=== PATIENT | male | born 1950 | race Caucasian/White ===

== ENCOUNTER 2016-10-26 15:46 | Inpatient (IN) | payer BC ==
[~2016-10-26] VITALS: Ht 180.3 cm; Wt 95.6 kg
[~2016-10-26 15:46] MED LIST: ASPI-611 PO; ASPI-728 PO; ATOR20TA18 PO; FENO160T9 PO; IBUP200C42 PO; IRON18TA PO; MELO-32 PO; MULT-806 PO; OXYC10TA PO; OXYC5TAB PO
--- OUTSIDE RECORDS SUMMARY | 2016-10-26 15:58 | XMS REPORT | Continuity of Care Document ---
Author Author [facility] Organization [facility] Address Unknown Phone Unavailable Care Team Providers Care Logging Assistant Name Role Phone Primary Care Physician Unavailable Source Comments Some departments are not documenting in the electronic medical record. If you do not see the information that you expected, contact Release of Information in the Health Information Management department at [phone] for further assistance in locating additional records.[facility] Active Allergies and Adverse Reactions Not on File Current Medications Not on file Active Problems Not on file Most Recent Encounters Date Type Specialty Providers Description 10/11/2016 Telephone Oncology Alee Brown MD Navigation Assessment 10/04/2016 Hospital Radiology Encounter 10/04/2016 Ancillary Radiology Outpatient, Radiologist Diagnosis unknown Orders (Primary Dx) 10/03/2016 Hospital Radiology Encounter 09/27/2016 Hospital Radiology Encounter 09/27/2016 Hospital Radiology Encounter 09/27/2016 Hospital Radiology Encounter 09/27/2016 Hospital Radiology Encounter Social History Tobacco Use Types Packs/Day Years Used Date Never Assessed Plan of Care Health Maintenance Due Date Last Done Comments Hepatitis C Screening 1950 Physical (Comprehensive) 12/31/1958 Exam Pertussis Vaccine 12/31/1962 Tetanus Vaccine 12/31/1968 Colorectal Cancer 12/31/2001 Screening Shingles Vaccine 2012 Influenza Vaccine 04/19/2017 Results from Last 3 Months * CT CHEST EXTERNAL IMAGING (10/04/2016) Only the most recent of 2 results within the time period is included. Narrative This order has been auto finalized and does not contain a result. * NM PET/CT EXTERNAL IMAGING (10/03/2016) Narrative This order has been auto finalized and does not contain a result. * CT HEAD EXTERNAL IMAGING (09/27/2016 12:45 AM) Narrative This order has been auto finalized and does not contain a result. * MRI HEAD EXTERNAL IMAGING (09/27/2016 12:15 AM) Narrative This order has been auto finalized and does not contain a result. * GENERAL RAD CHEST EXTERNAL IMAGING (09/27/2016) Narrative This order has been auto finalized and does not contain a result.
--- OUTSIDE RECORDS SUMMARY | 2016-10-26 15:59 | XMS REPORT | Continuity of Care Document ---
Author Author [facility] Organization 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 10/13/2016 Jailene Hernández MD P F C79.31 SECONDARY MALIGNANT NEOPLASM OF BRAIN 10/13/2016 Jailene Hernández MD P F E78.5 HYPERLIPIDEMIA, UNSPECIFIED 10/13/2016 Jailene Hernández MD P F E87.2 ACIDOSIS 10/13/2016 Jailene Hernández MD P F F17.200 NICOTINE DEPENDENCE, UNSPECIFIED, UNCOMPLICATED 10/13/2016 Jailene Hernández MD P F I10 ESSENTIAL (PRIMARY) HYPERTENSION 10/13/2016 Jailene Hernández MD P F I95.9 HYPOTENSION, UNSPECIFIED 10/13/2016 Jailene Hernández MD P F J43.9 EMPHYSEMA, UNSPECIFIED 10/13/2016 Jailene Hernández MD P F J69.0 PNEUMONITIS DUE TO INHALATION OF FOOD AND VOMIT 10/13/2016 Edgar ALEJANDRO Jailene P F J96.90 RESPIRATORY FAILURE, UNSP, UNSP W HYPOXIA OR HYPER 10/13/2016 Jailene Hernández MD P F R32 UNSPECIFIED URINARY INCONTINENCE 10/13/2016 Jailene Hernández MD P F R56.9 UNSPECIFIED CONVULSIONS 10/13/2016 Edgar ALEJANDRO Jailene P F R59.0 LOCALIZED ENLARGED LYMPH NODES 10/13/2016 Edgar ALEJANDRO Jailene P F Z96.649 PRESENCE OF UNSPECIFIED ARTIFICIAL HIP JOINT Procedures Code Description Performed By Performed On [id number] RESPIRATORY VENTILATION, LESS THAN 24 CONSECUTIVE Tasha Barajas MD 10/13/2016 Results Test Result Range CBC W/DIFF - 10/13/16 16:04 COMMENT REVIEWED GRANULOCYTE # 16.1 k/cumm 2.0-9.0 GRANULOCYTE % 94 % 50-75 LYMPHOCYTE # 0.7 k/cumm 1.0-4.0 LYMPHOCYTE % 4 % 20-30 MEAN CELL HGB 31.1 pg 27.0-33.0 MEAN CELL HGB CONCENTRATION 32.9 g/dL 32.0-37.0 MEAN CELL VOLUME 94.4 fl 80.0-100.0 MONOCYTE # 0.4 k/cumm 0.1-1.0 MONOCYTE % 2 % 4-6 RED BLOOD CELL 5.92 m/cumm 4.00-6.00 RED CELL DISTRIBUTION WIDTH 14.6 % 11.0- 15.6 TOXIC GRANULATION NOTED WHITE BLOOD CELL 17.2 k/cumm 5.0-10.0 HEMOGLOBIN 18.4 gm/dL 14.0-18.0 HEMATOCRIT 55.9 % 40.0-54.0 PLATELET COUNT 170 k/cumm 150-400 LACTIC ACID - 10/13/16 16:04 LACTIC ACID 13.5 mmol/L 0.5-2.0 HEPATIC FUNCTION PANEL - 10/13/16 16:06 BILI UNCONJUGATED 0.8 mg/dL 0.0-0.7 AST/SGOT 49 Units/L 10-37 ALT/SGPT 46 Units/L < 66 TOTAL PROTEIN 6.5 gm/dL 6.4-8.2 ALBUMIN 3.0 gm/dL 3.4-5.0 BILI TOTAL 0.9 mg/dL 0.0-1.0 ALKALINE PHOSPHATASE TOTAL 56 IU/L 45- 117 BILI CONJUGATED 0.1 mg/dL 0.0-0.3 MAGNESIUM - 10/13/16 16:06 MAGNESIUM 2.1 mg/dL 1.8-2.4 CREATINE KINASE (CK/CPK) - 10/13/16 16:06 CREATINE KINASE (CK/CPK) 138 Units/L < 309 D-DIMER QUANT - 10/13/16 16:09 D-DIMER QUANT 732 ng/mL 0-229 ARTERIAL BLOOD GAS - 10/13/16 16:20 ABG BASE EXCESS -6.5 meq/L -3.0-3.0 ABG DEVICE VENT ABG FIO2 100 % ABG BICARBONATE 22.5 meq/L 23.0-28.0 ABG PCO2 59 mm Hg 34-45 ABG PEEP 5 CM ABG PH 7.20 7.35-7.45 ABG PO2 362 mm Hg 75-100 ABG VENT RATE 16 ABG O2 SATURATION 100 % 93-100 ABG TIDAL VOLUME 500 CC CHEM/HEM PROFILE-BEDSIDE - 10/13/16 16:46 POTASSIUM 4.4 mmol/L 3.5-5.3 METHOD Bedside ANION GAP 12 mmol/L 10-20 METHOD Bedside GLUCOSE 139 mg/dL 70-99 BLOOD UREA NITROGEN 36 mg/dL 7-20 CREATININE 0.9 mg/dL 0.7-1.3 HEMOGLOBIN 19.0 gm/dL 14.0-18.0 HEMATOCRIT 56.0 % 40.0-54.0 SODIUM 139 mmol/L 135-148 CHLORIDE 102 mmol/L 98-110 CARBON DIOXIDE 29 mmol/L 21-32 CALCIUM IONIZED 4.8 mg/dL 4.5-5.3 BLOOD CULTURE - 10/13/16 20:26 Microbiology LACTIC ACID - 10/13/16 20:27 LACTIC ACID 1.9 mmol/L 0.5-2.0 ARTERIAL BLOOD GAS - 10/13/16 20:27 ABG BASE EXCESS -3.2 meq/L -3.0-3.0 ABG BICARBONATE 20.5 meq/L 23.0-28.0 ABG PCO2 34 mm Hg 34-45 ABG PH 7.40 7.35-7.45 ABG PO2 128 mm Hg 75-100 ABG O2 SATURATION 98 % 93-100 TROPONIN I - 10/13/16 20:27 TROPONIN I 0.04 ng/mL < 0.07 UR DRUGS OF ABUSE SCREEN - 10/13/16 20:59 UR AMPHETAMINES SCREEN NEG (<1000 ng/mL) NEGATIVE UR BARBITURATE SCREEN NEG (< 200 ng/mL) NEGATIVE DRUGS OF ABUSE SCREEN COMMENT UR OPIATES SCREEN NEG (< 300 ng/mL) NEGATIVE UR PHENCYCLIDINE (PCP) SCREEN NEG (< 25 ng/mL) NEGATIVE UR CANNABINOIDS (THC) SCREEN NEG (< 50 ng/mL) NEGATIVE UR COCAINE METABOLITE SCREEN NEG (< 300 ng/mL) NEGATIVE UR METHADONE SCREEN NEG (< 300 ng/mL) NEGATIVE UR BENZODIAZEPINE SCREEN NEG (< 200 ng/mL) NEGATIVE BLOOD CULTURE - 10/13/16 20:59 Microbiology LACTIC ACID - 10/14/16 01:15 LACTIC ACID 2.6 mmol/L 0.5-2.0 GLUCOSE (POC) - 10/14/16 04:33 GLUCOSE (POC) 145 mg/dL 70-99 CBC W/MANUAL DIFF - 10/14/16 04:34 MEAN CELL HGB 30.8 pg 27.0-33.0 MEAN CELL HGB CONCENTRATION 33.1 g/dL 32.0-37.0 MEAN CELL VOLUME 93.1 fl 80.0-100.0 RED BLOOD CELL 5.06 m/cumm 4.00-6.00 RED CELL DISTRIBUTION WIDTH 14.7 % 11.0- 15.6 WHITE BLOOD CELL 18.9 k/cumm 5.0-10.0 HEMOGLOBIN 15.6 gm/dL 14.0-18.0 HEMATOCRIT 47.1 % 40.0-54.0 PLATELET COUNT 145 k/cumm 150-400 MANUAL DIFF(O) - 10/14/16 04:34 BAND % 1 % 0-10 GRANULOCYTE # 18.5 k/cumm 2.0-9.0 LYMPHOCYTE # 0.4 k/cumm 1.0-4.0 LYMPHOCYTE % 2 % 20-30 DIFFERENTIAL MANUAL SEGMENTED NEUTROPHIL % 97 % 50-70 SPHEROCYTES NOTED TOXIC GRANULATION NOTED RENAL FUNCTION PANEL - 10/14/16 04:34 POTASSIUM 4.1 mmol/L 3.5-5.3 EST GFR (MDRD) > 60 mL/min > 59 ANION GAP 8 mmol/L 5-15 EST CrCl (CG) > 60 mL/min > 59 GLUCOSE 150 mg/dL 70-99 CALCIUM 7.5 mg/dL 8.5-10.1 BLOOD UREA NITROGEN 23 mg/dL 7-20 CREATININE 0.8 mg/dL 0.7-1.3 SODIUM 139 mmol/L 135-148 CHLORIDE 107 mmol/L 98-110 CARBON DIOXIDE 24 mmol/L 21-32 ALBUMIN 2.3 gm/dL 3.4-5.0 PHOSPHORUS 3.2 mg/dL 2.5-4.9 MAGNESIUM - 10/14/16 04:34 MAGNESIUM 2.0 mg/dL 1.8-2.4 METABOLIC PANEL, BASIC - 10/15/16 04:23 POTASSIUM 3.8 mmol/L 3.5-5.3 EST GFR (MDRD) > 60 mL/min > 59 ANION GAP 6 mmol/L 5-15 EST CrCl (CG) > 60 mL/min > 59 GLUCOSE 104 mg/dL 70-99 CALCIUM 7.4 mg/dL 8.5-10.1 BLOOD UREA NITROGEN 15 mg/dL 7-20 CREATININE 0.8 mg/dL 0.7-1.3 SODIUM 138 mmol/L 135-148 CHLORIDE 105 mmol/L 98-110 CARBON DIOXIDE 27 mmol/L 21-32 CALCIUM IONIZED - 10/15/16 10:27 CALCIUM IONIZED 4.6 mg/dL 4.5-5.3 LACTIC ACID - 10/15/16 10:27 LACTIC ACID 2.4 mmol/L 0.5-2.0 CBC W/DIFF - 10/15/16 10:27 COMMENT REVIEWED GRANULOCYTE # 12.4 k/cumm 2.0-9.0 GRANULOCYTE % 95 % 50-75 LYMPHOCYTE # 0.4 k/cumm 1.0-4.0 LYMPHOCYTE % 3 % 20-30 MEAN CELL HGB 30.8 pg 27.0-33.0 MEAN CELL HGB CONCENTRATION 33.2 g/dL 32.0-37.0 MEAN CELL VOLUME 92.7 fl 80.0-100.0 MONOCYTE # 0.2 k/cumm 0.1-1.0 MONOCYTE % 2 % 4-6 RED BLOOD CELL 5.59 m/cumm 4.00-6.00 RED CELL DISTRIBUTION WIDTH 14.4 % 11.0- 15.6 TOXIC GRANULATION NOTED WHITE BLOOD CELL 13.1 k/cumm 5.0-10.0 HEMOGLOBIN 17.2 gm/dL 14.0-18.0 HEMATOCRIT 51.8 % 40.0-54.0 PLATELET COUNT 112 k/cumm 150-400 VANCOMYCIN TROUGH - 10/15/16 10:27 VANCOMYCIN TROUGH 14.4 mcg/mL 5.0-20.0 PROCALCITONIN - 10/15/16 10:27 PROCALCITONIN < 0.05 ng/mL < 0.10 LACTIC ACID - 10/16/16 06:49 LACTIC ACID 1.9 mmol/L 0.5-2.0 CBC W/DIFF - 10/16/16 06:49 COMMENT REVIEWED GRANULOCYTE # 11.0 k/cumm 2.0-9.0 GRANULOCYTE % 94 % 50-75 LYMPHOCYTE # 0.3 k/cumm 1.0-4.0 LYMPHOCYTE % 3 % 20-30 MEAN CELL HGB 31.0 pg 27.0-33.0 MEAN CELL HGB CONCENTRATION 33.8 g/dL 32.0-37.0 MEAN CELL VOLUME 91.8 fl 80.0-100.0 MONOCYTE # 0.2 k/cumm 0.1-1.0 MONOCYTE % 2 % 4-6 RED BLOOD CELL 5.23 m/cumm 4.00-6.00 RED CELL DISTRIBUTION WIDTH 14.2 % 11.0- 15.6 TOXIC GRANULATION NOTED WHITE BLOOD CELL 11.6 k/cumm 5.0-10.0 HEMOGLOBIN 16.2 gm/dL 14.0-18.0 HEMATOCRIT 48.0 % 40.0-54.0 PLATELET COUNT 103 k/cumm 150-400 Encounters ACCT No. Visit Date/Time Discharge Status Pt. Type Provider Facility Loc./Unit Complaint [id number] 10/13/2016 16:53:00 2016 13:05:00 DIS Inpatient Edgar ALEJANDRO, Jailene Lundy [facility] WJonasPatric
[2016-10-26 16:11] VITALS: Ht 180.3 cm; Wt 95.6 kg
[2016-10-26 16:12] VITALS: BP 99/63; PULSE 80; RESP 16; TEMP 96.4; O2SAT 99
[2016-10-26 16:23] VITALS: PULSE 80; RESP 16
[2016-10-26] MEDS ORDERED: DEXA4TAB PO ×2 (16:41)
[2016-10-26] MEDS ORDERED: RANI150T7 PO (16:41)
[2016-10-26] MEDS ORDERED: PROC10TA PO (16:41)
[2016-10-26] MEDS ORDERED: NYST5ORA7 PO (16:41)
--- NOTE | 2016-10-26 16:50 | NUR ---
ADMISSION PT ADMITTED TO ROOM 148 VIA WHEELCHAIR DIRECT ADMIT AT 1600. PT IS A&OX3, UP WITH ONE ASSIST, MODERATE FALL. PT USES WALKER. FAMILY IS AT BEDSIDE. PT DENIES PAIN, N/V AND SOA. PT IS ON ROOM AIR. PT AND FAMILY ORIENTED TO BED AND HOSPITAL ROOM. AWAITING FURTHER ORDERS.
--- NOTE | 2016-10-26 16:54 | HPPDOC ---
VENKAT VERA V [facility] 10/26/16 1637: HPI - Adult Date DATE: 10/26/16 TIME: 16:30 General Chief Complaint: small cell lung cancer, elevated d-dimer, abnormal labs History of Present Illness Patient is a pleasant 66-year-old male who was diagnosed with small cell lung cancer on 09/27/16. Unfortunately, at that time he was found to have metastatic disease to the brain, lymph nodes. He has been undergoing chemotherapy and radiation under the care of Dr Read. He suffered a seizure and was on the ventilator for 2 days at [place] at the end of September. He was discharged home on October 17, however, since that time has been weak, fatigued with decreased appetite. At that time he was also found to have some bleeding in his stools. His bowels have not moved for 2 weeks. However, his intake has been minimal. Today he had outpatient laboratory studies and was found to have a continued decline in platelet count down to 60. He was also found to have an elevated d- dimer of 3120. Reviewed outpatient laboratory studies today. The [facility] count 5.0, hemoglobin 17.1 , hematocrit 49.7, platelet count 60, neutrophils 94%. Sodium is 135, potassium 3.6, BUN 26, creatinine 0.9. Total bilirubin continues to elevate to 3.0 now. Given these abnormal laboratory findings oncology team contacted the hospitalist services and requested medical admission for further evaluation and treatment. Patient is seen on arrival to [facility]. He is alert and oriented and pleasant during examination and his family is at the bedside. Past Medical History Past Medical History Non- small cell Lung Cancer with mets to brain and Lymph nodes Hyperlipidemia Seizures Chronic tobacco dependence History of alcohol use Surgical History Patient's Surgical History: Carpal tunnel release. Tonsillectomy Right thumb surgery. Colonoscopy-2002 Lumbar spine surgery-2013 Left total hip repair-November 2013 Current Medications Home Meds Reported Medications Furosemide (Furosemide) 20 Mg Tablet, 1 TAB PO PRN, TAB 10/26/16 Potassium Chloride (Potassium Chloride) 10 Meq Capsule.er, 10 MEQ PO PRN, CAP Take 1 capsule, by mouth, two times a day with meals 10/26/16 Levetiracetam (Keppra) 500 Mg Tablet, 1.5 TAB PO BID, #180 TAB 3 Refills 10/26/16 Prochlorperazine Maleate (Prochlorperazine Maleate) 10 Mg Tablet, 1 TAB PO Q6H, #30 TAB 3 Refills 10/26/16 Ranitidine HCl (Ranitidine HCl) 150 Mg Tablet, 150 MG PO DAILY, TAB 10/26/16 Dexamethasone (Dexamethasone) 4 Mg Tablet, 1 TAB PO HS, TAB 10/26/16 Dexamethasone (Dexamethasone) 4 Mg Tablet, 2 TAB PO BID.., TAB 10/26/16 Nystatin (Nystatin) 100,000 Unit/1 Ml Oral.susp, 5 ML PO QID, ML 5 ml swish and swallow four times a day. 10/26/16 Atorvastatin Calcium (Lipitor) 20 Mg Tablet, 40 MG PO DAILY, TAB 11/12/13 Discontinued Reported Medications Aspirin (Aspirin) 81 Mg Tablet, 81 MG PO DAILY, TAB 11/16/13 Fenofibrate,Micronized (Fenofibrate) 160 Mg Tablet, 160 MG PO DAILY, TAB 11/16/13 Meloxicam (Mobic) 15 Mg Tablet, 15 MG PO DAILY, TAB 11/12/13 Ibuprofen (Ibuprofen) 200 Mg Capsule, 200 MG PO PRN, CAP 11/12/13 Multivitamins (Multivitamin) 1 Tab Tablet, 1 TAB PO DAILY, TAB 11/12/13 Iron (Iron) 18 Mg Tablet, 18 MG PO DAILY, TAB 11/12/13 Discontinued Scripts Meloxicam (Mobic) 15 Mg Tablet, 15 MG PO DAILY, #30 TAB Prov:KRISTINA CHINCHILLA 11/18/13 Oxycodone Hcl (Oxycodone Hcl) 10 Mg Tab.sr.12h, 10 MG PO Q12H for PAIN, #28 TAB Prov:KRISTINA CHINCHILLA 11/18/13 Oxycodone Hcl (Oxycodone Hcl) 5 Mg Tablet, 5-15 MG PO Q3H Y for PAIN, #60 TAB TAKE 1-3 TABS Prov:KRISTINA CHINCHILLA 11/18/13 Aspirin EC (Aspirin Ec) 325 Mg Tablet.dr, 325 MG PO BID, #84 TAB Take one tablet by mouth twice a day for 6 weeks. Prov:KRISTINA CHINCHILLA 11/18/13 Allergies: Coded Allergies: No Known Allergies (Unverified , 11/12/13) Family History Family History: Father-stroke Mother-dementia Social History Smoking Status: Current every day smoker Alcohol Intake: former alcohol drinker Marital Status: Sexuality: female partner Housing: house Advance Directives: Yes DPOA for Healthcare Only (DARIN NASH), Yes Full Code Social History Comments PCP Dr Sousa Review of Systems Constitutional: REPORTS: appetite decrease, fatigue, weakness GI Upper Abdomen: hematemesis Lower Abdomen: blood in stool All Other Systems All Other Systems: Reviewed Physical Exam General General Nourishment: well nourished, well developed Vital Signs Vital Signs Date Time Temp Pulse Resp B/P Pulse Ox O2 Delivery O2 Flow Rate FiO2 10/26/16 16:23 80 16 10/26/16 16:12 96.4 99/63 99 Room Air Height (Feet): 5 Height (Inches): 11.00 ENMT Brief: FOUND: mucosa moist, normal dentition, NOT FOUND: pharnyx erythema Respiratory Brief: FOUND: clear all jarrell, equal bilaterally, NOT FOUND: wheezes Cardiovascular (brief) Cardiac Brief: FOUND: pedal edema, regular rate, regular rhythm, NOT FOUND: murmur Abdomen (brief) Abdominal Brief: FOUND: BS normo active x4, soft Integumentary (brief) Integumentary Brief: FOUND: dry, pink, warm Neurologic (brief) Neurological Brief: FOUND: cranial 2-12 intact (grossly ) Neurologic RN Documented GCS Eye Opening: Verbal: Motor: Total: Psychiatric (brief) FOUND: alert, attentive, normal affect, oriented Assessment & Plan Problems: (1) Non-small cell cancer of right lung Status: Acute (2) Metastasis Status: Acute (3) Elevated d-dimer Status: Acute (4) Thrombocytopenia Status: Acute Assessment & Plan: Present on admission, platelet count 60 (5) Elevated bilirubin Status: Acute (6) Hyperlipemia Status: Chronic (7) History of alcohol use Status: Chronic (8) Tobacco dependence Status: Chronic Plan/Intensity of Service Admit patient to outpatient observation under the care of Dr. Gallo for abnormal laboratory studies including thrombocytopenia, elevated bilirubin and elevated d-dimer. Patient does have a known history of that is static. Non- small cell lung cancer. Consultation will be placed to Dr. Ford for further oncology and hematologic evaluation and treatment. In light of recent reported GI bleeding, will obtain stool for occult blood. Will also obtain a KUB with upright x-ray In light of constipation as patient has not had a bowel movement for [address] an IV and give patient normal saline at 100 ML per hour for gentle hydration. Zofran as needed for nausea SCDs to bilateral lower extremity for DVT prophylaxis Once home medications have been reconciled well order appropriately. does want to bring home medications to use during hospitalization. Recheck CBC and BMP tomorrow morning to follow blood counts, renal function and electrolytes. Will discuss further orders and plan of care with Dr. Gallo. At time of discharge medical care will return to primary care provider, Dr. Sousa DVT Prophylaxis: SCD'S Code Status Hospital Course Summary Disclaimer The hospital course summary below is not to be considered part of the above Progress Note. Hospital Course Summary 10/26/16 Admit patient to outpatient observation under the care of Dr. Gallo for abnormal laboratory studies including thrombocytopenia, elevated bilirubin and elevated d-dimer. Patient does have a known history of that is static. Non- small cell lung cancer. Consultation will be placed to Dr. Ford for further oncology and hematologic evaluation and treatment. In light of recent reported GI bleeding, will obtain stool for occult blood. Will also obtain a KUB with upright x-ray In light of constipation as patient has not had a bowel movement for [address] an IV and give patient normal saline at 100 ML per hour for gentle hydration. Zofran as needed for nausea SCDs to bilateral lower extremity for DVT prophylaxis Once home medications have been reconciled well order appropriately. does want to bring home medications to use during hospitalization. Recheck CBC and BMP tomorrow morning to follow blood counts, renal function and electrolytes. Will discuss further orders and plan of care with Dr. Gallo. At time of discharge medical care will return to primary care provider, Dr. Merry GALLO,TOM Perez MD 10/26/162046: Past Medical History Current Medications Home Meds Reported Medications Furosemide (Furosemide) 20 Mg Tablet, 1 TAB PO PRN, TAB 10/26/16 Potassium Chloride (Potassium Chloride) 10 Meq Capsule.er, 10 MEQ PO PRN, CAP Take 1 capsule, by mouth, two times a day with meals 10/26/16 Levetiracetam (Keppra) 500 Mg Tablet, 1.5 TAB PO BID, #180 TAB 3 Refills 10/26/16 Prochlorperazine Maleate (Prochlorperazine Maleate) 10 Mg Tablet, 1 TAB PO Q6H, #30 TAB 3 Refills 10/26/16 Ranitidine HCl (Ranitidine HCl) 150 Mg Tablet, 150 MG PO DAILY, TAB 10/26/16 Dexamethasone (Dexamethasone) 4 Mg Tablet, 1 TAB PO HS, TAB 10/26/16 Dexamethasone (Dexamethasone) 4 Mg Tablet, 2 TAB PO BID.., TAB 10/26/16 Nystatin (Nystatin) 100,000 Unit/1 Ml Oral.susp, 5 ML PO QID, ML 5 ml swish and swallow four times a day. 10/26/16 Atorvastatin Calcium (Lipitor) 20 Mg Tablet, 40 MG PO DAILY, TAB 11/12/13 Discontinued Reported Medications Aspirin (Aspirin) 81 Mg Tablet, 81 MG PO DAILY, TAB 11/16/13 Fenofibrate,Micronized (Fenofibrate) 160 Mg Tablet, 160 MG PO DAILY, TAB 11/16/13 Meloxicam (Mobic) 15 Mg Tablet, 15 MG PO DAILY, TAB 11/12/13 Ibuprofen (Ibuprofen) 200 Mg Capsule, 200 MG PO PRN, CAP 11/12/13 Multivitamins (Multivitamin) 1 Tab Tablet, 1 TAB PO DAILY, TAB 11/12/13 Iron (Iron) 18 Mg Tablet, 18 MG PO DAILY, TAB 11/12/13 Discontinued Scripts Meloxicam (Mobic) 15 Mg Tablet, 15 MG PO DAILY, #30 TAB Prov:KRISTINA CHINCHILLA 11/18/13 Oxycodone Hcl (Oxycodone Hcl) 10 Mg Tab.sr.12h, 10 MG PO Q12H for PAIN, #28 TAB Prov:KRISTINA CHINCHILLA 11/18/13 Oxycodone Hcl (Oxycodone Hcl) 5 Mg Tablet, 5-15 MG PO Q3H Y for PAIN, #60 TAB TAKE 1-3 TABS Prov:KRISTINA CHINCHILLA 11/18/13 Aspirin EC (Aspirin Ec) 325 Mg Tablet.dr, 325 MG PO BID, #84 TAB Take one tablet by mouth twice a day for 6 weeks. Prov:KRISTINA CHINCHILLA 11/18/13 Allergies: Coded Allergies: No Known Allergies (Unverified , 11/12/13) Assessment & Plan Problems: (1) Non-small cell cancer of right lung Status: Acute (2) Metastasis Status: Acute Assessment & Plan: Metastatic disease to the brain-3 lesions recently reported ; XRT initiated/on tapering Decadron (3) Thrombocytopenia Status: Acute Assessment & Plan: Platelet count 60 in the office earlier today, 111 on 10/17 with subsequent decline (4) Elevated bilirubin Status: Acute Assessment & Plan: 3.0 on the date of admission; has increased progressively from 1.2 on 10/17 (5) Elevated d-dimer Status: Acute (6) Hematochezia Status: Acute Assessment & Plan: Minor, hemoglobin 17 this morning (7) Constipation Assessment & Plan: Last bowel movement 7-10 days or to admission (8) History of seizures Assessment & Plan: Due to brain metastases/vasogenic edema (9) Edema Assessment & Plan: Right greater than left lower extremity (10) Hyperlipemia Status: Chronic (11) Tobacco dependence Status: Chronic (12) History of alcohol use Status: Chronic Assessment I have independently evaluated and examined this patient. I reviewed the chart, the patient's history, and the [facility]'s documented findings as above. We discussed and formulated the assessment and plan as above with additions as below: Mr. Nash's son provide supplemental history. Patient reports that his had a small amount of blood a couple of times recently and describes some rectal pain in conjunction with constipation present for 7-10 days. He describes an urge to have a bowel movement and straining but no stool. Appetite is poor and his family reports that his been breathing heavily and having hiccups frequently. He denies discolored or dark urine. He is ambulating minimally per family report. Multiple laboratory abnormalities have been followed this week with dropping platelet count, increasing LDH and bilirubin, minor decrease in hemoglobin from 18 to 17. Patient is hospitalized for further management and evaluation. On examination the patient is slightly dull but is able to provide general historical information. Breath sounds are clear, abdomen benign, and there is + 1 pitting right lower extremity edema and trace left lower extremity edema. There is mild proximal weakness lower extremity greater on the left but distal power is strong as is upper extremity strength. Sensation is intact 4 extremities. In addition to a plans outlined above will obtain bilateral lower extremity venous Dopplers and further laboratory data requested by Dr. Ford including hit antibody, haptoglobin, and peripheral smear. DIC panel is being obtained although has effectively been screened with labs done prior to hospitalization demonstrating minimal increase INR, slightly low PTT of 21.4 seconds, and fibrinogen just below normal range at 172. KUB for evaluation of constipation demonstrates prior left hip arthroplasty, increased stool throughout the colon and probable fecal impaction by my review. Dulcolax suppositories to be initiated-may require enemas but with reported rectal bleeding and decreased platelet count I'm reluctant to initiate them at this time. Plan/Intensity of Service KUB reviewed by myself, discussed with Dr. Ford, current and past laboratory data reviewed. Bilateral lower extremity venous Doppler reviewed. Supplemental history provided by the patient's son and [id number]. VENKAT VERA APRN Oct 26, 2016 16:37 TOM GALLO MD Oct 26, 2016 20:47
[2016-10-26] MEDS ORDERED: ONDANSETRON 4mg/2ml INJECTION IV PRN (17:00)
[2016-10-26] MEDS ORDERED: LEVE500T9 PO (17:07)
[2016-10-26] MEDS: NORMAL SALINE 1,000 ML IV SCH (17:11)
[2016-10-26] MEDS ORDERED: BISACODYL 10 MG SUPPOSITORY RECTALLY PRN (18:15)
[2016-10-26] MEDS ORDERED: MILK OF MAGNESIA 30 ML SUSP PO PRN (18:15)
[2016-10-26] MEDS: PROCHLORPERAZINE 10 MG TABLET PO SCH (18:39)
[2016-10-26 18:45] LABS: HCT - HEMATOCRIT 44.9 % (41-53); HGB - HEMOGLOBIN 15.7 GM/DL (13.5-17.5); MEAN CORPUSCULAR HGB 31.6 UUG (26-34); MEAN CORPUSCULAR VOLUME 90.3 UM3 (80-100); MEAN PLATELET VOLUME 10.5 UM3 (9.4-12.4); RED BLOOD COUNT 4.97 M/MM3 (4.50-5.90); WBC - WHITE BLOOD COUNT 3.7 T/MM3 (4.5-11.0)
[2016-10-26] MEDS ORDERED: FURO20TA4 PO (18:46)
[2016-10-26] MEDS ORDERED: POTA10CA37 PO (18:46)
[2016-10-26 18:53] LABS: INR 1.16 (0.76-1.04); PROTHROMBIN TIME 12.6 SEC (9.31-12.49); PTT 26.6 SEC (24-36)
[2016-10-26 20:00] VITALS: RESP 18
[2016-10-26 20:18] VITALS: BP 100/68; PULSE 78; RESP 20; TEMP 96.8; O2SAT 95
[2016-10-26] MEDS ORDERED: ENOXAPARIN SQ SCH (20:45)
[2016-10-26] MEDS: LEVETIRACETAM 500 MG TABLET PO SCH (20:46)
[2016-10-26] MEDS: SENNA + DOCUSATE TAB PO SCH (20:46)
[2016-10-26] MEDS: NYSTATIN 500,000 units/5ml Susp UD PO SCH (20:46)
[2016-10-26] MEDS: DEXAMETHASONE 4 MG TABLET PO SCH (20:46)
[2016-10-26] MEDS: ATORVASTATIN 40 MG TABLET PO SCH (20:47)
[2016-10-26] MEDS: RANITIDINE 150 MG TABLET PO SCH (20:47)
[2016-10-26] MEDS ORDERED: POLYETHYL.GLYCOL 3350 PACKET 17gm PO SCH (21:00)
[2016-10-26 22:00] VITALS: PULSE 74; RESP 18; O2SAT 94
--- NOTE | 2016-10-26 23:09 | NUR ---
BATHROOM ASSIST: PT GOT UP (BED ALARM WENT OFF) - ASSISTED PT TO BATHROOM. PT HAD A FEW SMALL BLOOD CLOTS FROM HIS RECTUM. ALSO, WHEN I WAS GETTING REPORT FROM DAY SHIFT RN IN PT'S ROOM, HE WAS IN THE BATHROOM AND HAD BLOOD CLOTS FROM HIS RECTUM AT THAT TIME WELL. CHANGED PT'S BED PAD AND UNDERWEAR (SMALL AMOUNT OF BLOOD SOAKED THROUGH) AND PUT A BRIEF ON PT. WILL CONTINUE TO MONITOR.
[2016-10-27] VITALS (7 sets, daily range): BP systolic 96–104; BP diastolic 65–69; PULSE 75–90; RESP 12–18; TEMP 96.7–97.9; O2SAT 91–95
--- NOTE | 2016-10-27 00:29 | NUR ---
SCD'S: KEPT SCD'S OFF DUE TO R-LEG DVT AND PT STARTS GETTING OUT OF BED WITHOUT CALLING (CONCERNED FOR PT'S SAFETY, OF FALLING). WILL NOTIFY DAY SHIFT RN OF SITUATION.
[2016-10-27] MEDS: PROCHLORPERAZINE 10 MG TABLET PO SCH ×4 (01:09→18:15)
[2016-10-27] MEDS: NORMAL SALINE 1,000 ML IV SCH ×2 (03:15→14:36)
[2016-10-27 06:02] LABS: HGB - HEMOGLOBIN 14.5 GM/DL (13.5-17.5); MEAN CORPUSCULAR HGB 31.6 UUG (26-34); MEAN CORPUSCULAR HGB CONC(MCHC 34.5 GM/DL (31-37); MEAN CORPUSCULAR VOLUME 91.5 UM3 (80-100); MEAN PLATELET VOLUME 10.7 UM3 (9.4-12.4); RED BLOOD COUNT 4.59 M/MM3 (4.50-5.90); WBC - WHITE BLOOD COUNT 2.7 T/MM3 (4.5-11.0)
[2016-10-27 06:14] LABS: ALBUMIN 2.4 G/DL (3.5-5.0); ALBUMIN/GLOBULIN RATIO 1.1 RATIO (1.1-2.2); ALKALINE PHOSPHATASE 40 U/L (38-126); ALT (SGPT) 38 U/L (21-72); ANION GAP 8 MEQ/L (5-15); AST (SGOT) 18 U/L (17-59); BUN/CREATININE RATIO 37 RATIO (6-26); CALCIUM 7.6 MG/DL (8.4-10.2); CHLORIDE 104 MEQ/L (98-107); CO2 - CARBON DIOXIDE 23 MEQ/L (22-30); CREATININE 0.6 MG/DL (0.8-1.5); GLOMERULAR FILTRATION RATE 136; GLUCOSE 78 MG/DL (75-110); POTASSIUM 3.6 MEQ/L (3.6-5); SODIUM 135 MEQ/L (134-144); TOTAL PROTEIN 4.5 G/DL (6.3-8.2)
[2016-10-27 06:51] LABS: NEUTROPHILS #(MANUAL)-ABSOLUTE 2.6 T/MM3 (1.8-7.7); TOTAL CELLS COUNTED 100 %
--- NOTE | 2016-10-27 08:10 | NUR ---
SHIFT ASSESSMENT: PT IS A&OX3, FRIENDLY AND COOPERATIVE. PT DENIES PAIN OR SOA, IS UP TO THE BATHROOM WITH 1-STANDBY ASSIST, BUT MAY NEED A GATE BELT AND WALKER DUE TO DETERIORATION OF HEALTH. USES HOSPITAL BRIEFS (INCONTINENT OF SMALL AMOUNTS OF BLOOD CLOTS FROM RECTUM; DOCTOR IS AWARE OF THIS). IV FLUIDS RUNNING. PT HAD A BOWEL MOVEMENT THIS MORNING AND A SAMPLE WAS TAKEN TO LAB. Q4 VITALS. PT IS ON A REGULAR DIET, BUT HAS NO APPETITE. CALL LIGHT WITHIN REACH, BED ALARM ON, FREQUENT ROUNDING.
--- NOTE | 2016-10-27 08:22 | NUR ---
Status Pt alert and oriented x3 this morning. Pt assisted to bathroom with stand-by assist-pt a bit unsteady on feet. Pt voids and has smears of blood-tinged stool on brief and toilet tissue. Pt denies pain, dizziness, or shortness of breath. Pt sighs as up to bathroom. When asked if tired or weak, pt states he feels "blah" and wishes "it would all go away." Pt offered menu to order breakfast. Pt states food does not taste good. Vitals obtained and stable as charted. Pt resting quietly now with unlabored respirations. Will continue to monitor.
[2016-10-27] MEDS: NYSTATIN 500,000 units/5ml Susp UD PO SCH ×4 (09:00→21:04)
[2016-10-27] MEDS: POLYETHYL.GLYCOL 3350 PACKET 17gm PO SCH ×2 (09:00→21:00)
[2016-10-27] MEDS: ENOXAPARIN 60 MG/0.6 ML INJECTION SQ SCH ×2 (09:30→21:17)
--- NOTE | 2016-10-27 09:30 | NUR ---
Suppository Eliana received from Dr. Gallo to give pt suppository to assist with having a BM. Dulcolax suppository given. Will continue to monitor.
--- NOTE | 2016-10-27 09:59 | PNPDOC ---
GEOFF ALBARRAN 10/27/16 0923: Subjective Date DATE: 10/27/16 TIME: 09:18 Subjective Mr. Nash is seen this morning in follow up for his rectal bleeding and right lower extremity DVT. 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 Read. He is seen while resting in bed and reports that today he just feels "blah". He denies any specific complaints including no chest pain, shortness of breath, abdominal pain, nausea , vomiting, fevers or chills. Nursing notes report that he appeared unsteady this morning while ambulating to the bathroom but denied any dizziness, headache or lightheadedness. He reports that his appetite remains poor with poor oral intake. He has had 2 small bowel movements since yesterday's suppository, both reported to have blood present. Dr. Healy was consulted for surgical evaluation in light of rectal bleeding and recommended a flexible sigmoidoscopy today. Due to elevated d-dimer and bilateral lower extremity swelling, bilateral ultrasounds of the lower extremities were obtained on and revealed right popliteal and posterior tibial DVTs. Dr. Gallo discussed the ultrasound findings with Dr. Ford and it was decided to initiate reduced dose Lovenox at 0.5mg/kg in light of his thrombocytopenia and hematochezia. On exam, he is resting in bed and is alert and orientated x 3. He is breathing easily on room air with no signs of distress. Cardiac exam reveals regular rate and rhythm and lungs are clear bilaterally. He does cough once on initial lung evaluation with deep breath. Abdomen is soft, nontender with active bowel sounds. Bilateral lower extremities are edematous 2-3+ bilaterally with 2+ pedal pulses on left and 1+ pedal pulse on right. Right lower extremity more swollen as compared to left on exam. Cooperative on exam and appears tired. Labs today showed slight decrease in WBC to 2.7 with 98% neutrophils and slight increase in platelets at 56. BMP relatively unremarkable. Total bilirubin remains elevated but improved at 2.0 and unconjugated bili elevated at 1.6. Objective Vital Signs Vital signs Vital Signs Date Time Temp Pulse Resp B/P Pulse Ox O2 Delivery O2 Flow Rate FiO2 10/27/16 08:16 16 10/27/16 07:57 96.7 83 104/68 93 Room Air Height (Feet): 5 Height (Inches): 11.00 Weight (Kilograms): 96.800 General General Appearance: Alert, Orientated x 3, Cooperative, No Acute Distress Eyes (Brief) Eyes: FOUND: PERRL, NOT FOUND: scleral icterus ENMT (Brief) ENMT: FOUND: mucosa moist Neck (Brief) Neck: FOUND: midline, NOT FOUND: nuchal rigidity, tracheal deviation Respiratory (Brief) Respiratory: FOUND: clear all jarrell, equal bilaterally, symmetrical, NOT FOUND : rales, wheezes Cardiovascular (Brief) Cardiac: FOUND: pedal edema, regular rate, regular rhythm Comments 2+ pedal pulse on left, 1+ pedal pulse on right. Abdomen (Brief) Abdominal: FOUND: BS normo active x4, soft, NOT FOUND: distended, tender Extremities (Brief) Extremity : Side: Bilateral Extremity: leg Extremity Finding: FOUND: edema, NOT FOUND: deformity Comments R>L Musculoskeletal (Brief) Musculoskeletal: FOUND: extremities move equally, NOT FOUND: deformity, loss of motion Integumentary (Brief) Integumentary: FOUND: dry, pink, warm Neurologic (Brief) Neurological: NOT FOUND: facial droop Psychiatric (Brief) Psychiatric: FOUND: alert, attentive, oriented Comments cooperative Laboratory Laboratory Laboratory Tests 10/26/16 12:18 10/27/16 05:11 Laboratory Tests 10/26/16 18:37 10/27/16 05:11 Assessment & Plan Problems: (1) Metastasis Status: Chronic Assessment & Plan: Metastatic disease to the brain-3 lesions recently reported ; XRT initiated/on tapering Decadron (2) Non-small cell cancer of right lung Status: Chronic (3) Hematochezia Status: Acute Assessment & Plan: Minor, hemoglobin 17 this morning (4) DVT (deep venous thrombosis) Status: Acute Qualifiers: DVT location: lower extremity Affected thrombotic vein of extremity: popliteal Laterality: right Chronicity: acute Qualified Codes: I82.431 - Acute embolism and thrombosis of right popliteal vein Assessment & Plan: popliteal and tibial on right - 10/26/16. (5) Leukopenia due to antineoplastic chemotherapy Status: Acute (6) Elevated bilirubin Status: Acute Assessment & Plan: 3.0 on the date of admission; has increased progressively from 1.2 on 10/17 (7) Thrombocytopenia Status: Acute Assessment & Plan: Platelet count 60 in the office earlier today, 111 on 10/17 with subsequent decline (8) Elevated d-dimer Status: Acute Assessment & Plan: present on admission. (9) Constipation Status: Chronic Assessment & Plan: Last bowel movement 7-10 days or to admission (10) History of seizures Assessment & Plan: Due to brain metastases/vasogenic edema (11) Edema Status: Chronic Assessment & Plan: Right greater than left lower extremity (12) Hyperlipemia Status: Chronic (13) Tobacco dependence Status: Chronic (14) History of alcohol use Status: Chronic Plan/Intensity of Service 11/02/16.Mirakian: 1. Hematochezia - Patient was given a rectal suppository with small amount of results. Stool that was passed was noted to have blood present. Will continue suppositories for fecal impaction. Consult Dr. Healy for surgical evaluation. Recommended sigmoidoscopy for further evaluation of rectum and possible bleeding source. Avoid enema at this time until further discussion with Dr. Ford and following surgical evaluation by Dr. Healy. Continue to monitor closely in light of initiation of Lovenox for DVT. Hemoglobin stable at 14.5. Will continue to monitor trends closely. Will decrease IV fluids to 75cc/hr for maintainable and encourage oral intake. Pulse ox trending down at 93% today. Monitor closely for signs of fluid overload. Encourage incentive spirometry for pulmonary toileting. 2. DVT - Ultrasound of bilateral lower extremities obtained on 10/26/16 in light of bilateral edema and revealed right popliteal and tibial DVT. Dr. Gallo discussed the results with Dr. Ford and it was decided to initiate Lovenox at reduced dose of 0.5mg/kg. Dr. Healy was notified of patient's DVT and will evaluate need for possible filter placement following evaluation of rectal bleeding. Patient is at significant risk for complications. Continue to monitor closely. 3. Leukopenia - WBC on admission was 3.7. Decreased to 2.7 today (10/27/16) with 98% neutrophils. Continue to monitor trends closely and will recheck CBC in AM. Currently not neutropenic and no advanced precautions indicated. 4. Thrombocytopenia - Platelets were 53 on admission and increased slight to 56 today (10/27/16). Dr. Ford requested additional testing including hit antibody, haptoglobin, and peripheral smear - all pending. DIC panel is being obtained although has effectively been screened with labs done prior to hospitalization demonstrating minimal increase INR (1.16), slightly low PTT of 21.4 seconds, and fibrinogen just below normal range at 172 and DIC 3 (DIC <5 - Cannot exclude low grade/ chronic DIC). Monitor closely for additional bleeding especially in light of Lovenox treatment. 5. Hyperbilirubinemia - Total bilirubin 2.00 with elevated unconjugated bilirubin at 1.6. Will continue to monitor closely. 6. Non-small cell lung cancer with metastatic disease - Continue with care per Dr. Ford. Appreciate his time and expertise. 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 Monitor closely. DVT Prophylaxis: Lovenox Code Status Full Code Hospital Course Summary Disclaimer The hospital course summary below is not to be considered part of the above Progress Note. Hospital Course Summary 10/26/16 Admit patient to outpatient observation under the care of Dr. Gallo for abnormal laboratory studies including thrombocytopenia, elevated bilirubin and elevated d-dimer. Patient does have a known history of that is static. Non- small cell lung cancer. Consultation will be placed to Dr. Ford for further oncology and hematologic evaluation and treatment. In light of recent reported GI bleeding, will obtain stool for occult blood. Will also obtain a KUB with upright x-ray In light of constipation as patient has not had a bowel movement for [address] an IV and give patient normal saline at 100 ML per hour for gentle hydration. Zofran as needed for nausea SCDs to bilateral lower extremity for DVT prophylaxis Once home medications have been reconciled well order appropriately. does want to bring home medications to use during hospitalization. Recheck CBC and BMP tomorrow morning to follow blood counts, renal function and electrolytes. Will discuss further orders and plan of care with Dr. Gallo. At time of discharge medical care will return to primary care provider, Dr. Sousa 11/02/16.Mirakian: 1. Hematochezia - Patient was given a rectal suppository with small amount of results. Stool that was passed was noted to have blood present. Will continue suppositories for fecal impaction. Consult Dr. Healy for surgical evaluation. Recommended sigmoidoscopy for further evaluation of rectum and possible bleeding source. Avoid enema at this time until further discussion with Dr. Ford and following surgical evaluation by Dr. Healy. Continue to monitor closely in light of initiation of Lovenox for DVT. Hemoglobin stable at 14.5. Will continue to monitor trends closely. Will decrease IV fluids to 75cc/hr for maintainable and encourage oral intake. Pulse ox trending down at 93% today. Monitor closely for signs of fluid overload. Encourage incentive spirometry for pulmonary toileting. 2. DVT - Ultrasound of bilateral lower extremities obtained on 10/26/16 in light of bilateral edema and revealed right popliteal and tibial DVT. Dr. Gallo discussed the results with Dr. Ford and it was decided to initiate Lovenox at reduced dose of 0.5mg/kg. Dr. Healy was notified of patient's DVT and will evaluate need for possible filter placement following evaluation of rectal bleeding. Patient is at significant risk for complications. Continue to monitor closely. 3. Leukopenia - WBC on admission was 3.7. Decreased to 2.7 today (10/27/16) with 98% neutrophils. Continue to monitor trends closely and will recheck CBC in AM. Currently not neutropenic and no advanced precautions indicated. 4. Thrombocytopenia - Platelets were 53 on admission and increased slight to 56 today (10/27/16). Dr. Ford requested additional testing including hit antibody, haptoglobin, and peripheral smear - all pending. DIC panel is being obtained although has effectively been screened with labs done prior to hospitalization demonstrating minimal increase INR (1.16), slightly low PTT of 21.4 seconds, and fibrinogen just below normal range at 172 and DIC 3 (DIC <5 - Cannot exclude low grade/ chronic DIC). Monitor closely for additional bleeding especially in light of Lovenox treatment. 5. Hyperbilirubinemia - Total bilirubin 2.00 with elevated unconjugated bilirubin at 1.6. Will continue to monitor closely. 6. Non-small cell lung cancer with metastatic disease - Continue with care per Dr. Ford. Appreciate his time and expertise. 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 Monitor closely. TOM GALLO MD 10/27/16 1538: Assessment & Plan Assessment I have independently evaluated and examined this patient. I reviewed the chart, the patient's history, and the PA's documented findings as above. We discussed and formulated the assessment and plan as above with additions as below: Mr. Nash was seen with his son and [id number] at the bedside. He had a very small stool earlier with small amount of red blood associated with the bowel movement. Nursing reports that there is some bright red blood with clots passed with attempts to defecate. He denies pleuritic pain. Respirations are nonlabored and airflow is good with clear lung jarrell. Cardiac exam is regular. The abdomen is soft and nontender with diminished bowel sounds. There is +1 edema in the right lower extremity and trace edema in the left lower extremity without change from yesterday. Hemoglobin is down slightly but platelet count is stable, white count dropping but not yet neutropenic. Repeat CBC at 4 PM to monitor blood loss. Drop in both blood and white count consistent with recent chemotherapy. Discussed with both Dr. Ford and Dr. Healy-continue anticoagulation at this time for DVT. Bowel prep being continued for fecal impaction/constipation. Anoscopy anticipated tomorrow if equipment available. Complexity of managing current problems (DVT, hematochezia,thrombocytopenia, brain metastases) and intrinsic risks discussed with the patient's son and [id number]. Plan/Intensity of Service Laboratory data reviewed, high-risk medications in use and patient at high risk for complications. Discussed with Dr. Healy and Dr. Ford. GEOFF ALBARRAN Oct 27, 2016 09:23 TOM GALLO MD Oct 27, 2016 15:38
[2016-10-27] MEDS: DEXAMETHASONE 4 MG TABLET PO SCH ×3 (10:26→21:04)
[2016-10-27] MEDS: LEVETIRACETAM 500 MG TABLET PO SCH ×2 (10:26→21:04)
[2016-10-27] MEDS ORDERED: SENNA LIQUID 74 ML BOTTLE PO ONE (11:15)
[2016-10-27] MEDS: SENNA + DOCUSATE TAB PO SCH ×2 (11:15→21:06)
--- NOTE | 2016-10-27 11:47 | CONSF ---
DATE OF CONSULTATION 10/27/2016 FINDINGS Mr. Nash is a 66-year-old gentleman who I was asked to see today as a new patient as a result of his history for rectal bleeding and to discuss the potential need for placement of an IVC filter. Patient has had the misfortune of recently being diagnosed with small cell lung cancer. The patient has been receiving chemoradiation as a result of his metastatic small cell lung cancer. He recently had developed a seizure and was found to have brain metastases and was admitted to [facility]. Patient was discharged from [facility] at the beginning of October and has not been doing well since that time. In regards to his history for rectal bleeding, the patient states that it began about the time he was diagnosed with small cell lung cancer in September. He states that he has been experiencing bright red blood per rectum in association with the process of defecation. He has been also experiencing a moderate amount of perianal pain/discomfort during the process of defecation. He has been also quite constipated per his report. Patient was seen on an outpatient basis by his oncologist and was found to be worsening from a clinical standpoint and was found to have some abnormalities upon laboratory evaluation and was subsequently admitted to our hospital for further care. Past Medical History, Past Surgical History, Medications, Allergies, Social History, Family History, Review of Systems will be performed by my nurse practitioner, Edgar Brown. PHYSICAL EXAMINATION GENERAL: Mr. Nash is a 66-year-old gentleman who this morning did not appear to be in acute distress. VITAL SIGNS: Temperature 96.7, pulse 83, respirations 16, blood pressure 104/68, SaO2 93% on room air. HEENT: Normocephalic. Pupils are equally round and react to light and accommodation. CHEST: Clear to auscultation bilaterally. HEART: Regular rate and rhythm. Normal S1 and S2 without gallops, murmurs or clicks. ABDOMEN: Palpation of the abdomen reveals it to be soft and nontender. I do not appreciate any evidence for hepatosplenomegaly nor abnormal masses. EXTREMITIES: Without clubbing, cyanosis, or edema. NEURO: Cranial nerves II-XII grossly intact. Patient is without focal motor or sensory deficits. LABORATORY/RADIOGRAPH EVALUATION. Patient had a CBC today and is neutropenic with a white count of 2.7. Additionally his platelet count is low at 46.0. CMP was obtained. He was found to have elevation of his bilirubin at 2.0. Calcium was low at 7.6. D-dimer was obtained and found be elevated at 2461. Patient underwent a venous Doppler that was reported as positive for DVT. Dictated report is still pending. ASSESSMENT A 66-year-old gentleman with the misfortune of developing metastatic small cell lung cancer, development of thrombocytopenia, neutropenia, and history for rectal bleeding. PLAN I was going to perform a more formal rectal examination at the bedside using an anoscope. At this time, staff has been unable to locate a lighted anoscope. Once staff has been able to locate an anoscope, I will perform an anoscopy at the bedside in an attempt to determine the underlying etiology for his rectal bleeding. It is my intuition that his rectal bleeding likely is just from his anal canal as a result of internal hemorrhoidal disease. More than likely with his thrombocytopenia and probable internal hemorrhoids versus anal fissure, he is experiencing bright red blood per rectum. I am a little reluctant to proceed with a formal colonoscopy in this patient who is neutropenic and thrombocytopenic in nature. At this point in time would recommend going ahead and proceeding with anticoagulation for his newly discovered DVT. I would not recommend placement of an IVC filter at this time. If he would develop significant bleeding and there would be a stronger indication/ contraindication for anticoagulation then at that time one may need to proceed with placement of an IVC filter. JANE
--- NOTE | 2016-10-27 14:06 | NUR ---
CM THIS WORKER MET WITH PT IN ROOM. PT LAYING IN BED AT THIS TIME. SON AND DIL PRESENT AT BEDSIDE. INTRODUCED SELF AND ROLE FO CASE MANAGEMENT. PT LIVES AT HOME WITH . IS STILL WORKING. FRIENDS AND FAMILY AVAILABLE AND HAVE BEEN STAYING WITH PT DURING THE DAY. PT IS PLANNING ON RETURNING HOME AT TIME OF DISCHARGE. DISCUSSION REGARDING NEEDS AT HOME. PT HAS WALKER THAT HE UTILIZES. INQUIRING REGARDING HOME HEALTH AVAILABLE. THIS WORKER PROVIDED BROCHURES REQUESTED. THIS WORKER PROVIDED CONTACT INFORMATION FOR PT AND FAMILY.CASE MANAGEMENT WILL CONTINUE TO FOLLOW AND ASSIST IN DISCHARGE PLANNING NEEDED.
--- NOTE | 2016-10-27 16:30 | NUR ---
STATUS PT CONTINUES TO HAVE SMEARS/SMALL BLOODY BM'S CHARTED. LABS RECHECKED AND STABLE SHOWN. VITALS STABLE CHARTED. PT SLEEPS/RESTS BETWEEN CARES. FAMILY AT BEDSIDE. WILL MONITOR.
[2016-10-27 17:02] LABS: HGB - HEMOGLOBIN 15.3 GM/DL (13.5-17.5); MEAN CORPUSCULAR HGB 31.7 UUG (26-34); MEAN CORPUSCULAR HGB CONC(MCHC 34.8 GM/DL (31-37); MEAN CORPUSCULAR VOLUME 91.1 UM3 (80-100); MEAN PLATELET VOLUME 10.7 UM3 (9.4-12.4); RED BLOOD COUNT 4.83 M/MM3 (4.50-5.90); WBC - WHITE BLOOD COUNT 2.7 T/MM3 (4.5-11.0)
--- NOTE | 2016-10-27 18:23 | NUR ---
STATUS PT EATS MODERATE AMOUNT OF MIGHTY SHAKE AND ICE CREAM. PT PLEASANT BUT CONTINUES VERY FATIGUED WITH CARES. RESTING QUIETLY AFTER EATING. WILL MONITOR.
[2016-10-27] MEDS: RANITIDINE 150 MG TABLET PO SCH (21:06)
[2016-10-27] MEDS: ATORVASTATIN 40 MG TABLET PO SCH (21:06)
[2016-10-28] VITALS: BP 102/66; PULSE 86; RESP 18; TEMP 97.2; O2SAT 93
[2016-10-28] MEDS: PROCHLORPERAZINE 10 MG TABLET PO SCH ×4 (00:17→17:08)
[2016-10-28 04:27] VITALS: BP 103/65; PULSE 78; RESP 16; TEMP 96.8; O2SAT 92
[2016-10-28 05:36] LABS: HCT - HEMATOCRIT 42.1 % (41-53); HGB - HEMOGLOBIN 14.4 GM/DL (13.5-17.5); MEAN CORPUSCULAR HGB 31.3 UUG (26-34); MEAN CORPUSCULAR HGB CONC(MCHC 34.2 GM/DL (31-37); MEAN CORPUSCULAR VOLUME 91.5 UM3 (80-100); MEAN PLATELET VOLUME 10.3 UM3 (9.4-12.4)
--- NOTE | 2016-10-28 05:36 | NUR ---
SHIFT SUMMARY PATIENT IS ALERT AND ORIENTED X3. PATIENT'S VITAL SIGNS HAVE BEEN STABLE ON ROOM AIR THIS SHIFT. PATIENT AMBULATES WELL WITH STAND BY AND WALKER. PATIENT HAS BEEN OFFERED WATER AND MIGHTY SHAKES THIS SHIFT, BUT HAS MOSTLY REFUSED TAKING ONLY A FEW SIPS. PATIENT HAS HAD MULTIPLE EVENTS OF BM URGENCY THIS SHIFT WITH BLOOD IN SOFT STOOL; THIS IS CONTINUED FROM PREVIOUS SHIFT. PATIENT REPORTS NO PAIN. WILL CONTINUE TO MONITOR.
[2016-10-28 05:39] LABS: WBC - WHITE BLOOD COUNT 1.9 T/MM3 (4.5-11.0)
[2016-10-28 05:46] LABS: ANION GAP 5 MEQ/L (5-15); BUN/CREATININE RATIO 24 RATIO (6-26); CALCIUM 7.9 MG/DL (8.4-10.2); CHLORIDE 105 MEQ/L (98-107); CO2 - CARBON DIOXIDE 24 MEQ/L (22-30); CREATININE 0.7 MG/DL (0.8-1.5); GLOMERULAR FILTRATION RATE 114; GLUCOSE 96 MG/DL (75-110); POTASSIUM 3.7 MEQ/L (3.6-5); SODIUM 134 MEQ/L (134-144)
--- NOTE | 2016-10-28 06:10 | NUR ---
NOTIFIED TELE DOC OF WBC COUNT OF 1.9. RECEIVED CALL BACK FROM DR. JOHNS. HE REQUESTED THAT [facility]. WILL CONTINUE TO MONITOR. Addendum: 10/28/16 at 0731 by STEVE TRIPATHI RN PHYSICIAN NOTIFIED NOTIFIED TELE DOC OF WBC COUNT OF 1.9. RECEIVED CALL BACK FROM DR. JOHNS. HE REQUESTED THAT [facility]. WILL CONTINUE TO MONITOR.
[2016-10-28 06:13] LABS: BAND NEUTROPHILS # 0.2 T/MM3; LYMPHOCYTES # (MANUAL) 0.1 T/MM3 (1-4.8); NEUTROPHILS #(MANUAL)-ABSOLUTE 1.5 T/MM3 (1.8-7.7); REACTIVE LYMPHOCYTES # 0.1 T/MM3 (0-0); TOTAL CELLS COUNTED 100 %
[2016-10-28] MEDS: NORMAL SALINE 1,000 ML IV SCH (06:18)
[2016-10-28 08:04] VITALS: BP 113/67; PULSE 79; RESP 16; TEMP 96.7; O2SAT 94
[2016-10-28] MEDS: DEXAMETHASONE 4 MG TABLET PO SCH ×3 (08:46→21:08)
[2016-10-28] MEDS: SENNA + DOCUSATE TAB PO SCH ×2 (08:47→21:09)
[2016-10-28] MEDS: ENOXAPARIN 60 MG/0.6 ML INJECTION SQ SCH ×2 (08:47→21:10)
[2016-10-28] MEDS: NYSTATIN 500,000 units/5ml Susp UD PO SCH ×4 (08:47→21:07)
[2016-10-28] MEDS: LEVETIRACETAM 500 MG TABLET PO SCH ×2 (08:47→21:07)
[2016-10-28] MEDS: POLYETHYL.GLYCOL 3350 PACKET 17gm PO SCH (08:47)
--- NOTE | 2016-10-28 09:44 | CONSPD ---
Consultation Info Date DATE: 10/27/16 TIME: 17:31 Date of Consultation: Oct 27, 2016 Attending Physician: Dr. Gallo Reason for Consultation: lung cancer, low platelets HPI - Adult Date DATE: 10/27/16 TIME: 17:31 General Chief Complaint: Non small cell lung cancer, elevated d-dimer, abnormal labs History of Present Illness Patient is a pleasant 66-year-old male who was diagnosed with non small cell lung cancer 09/27/16.A chest x-ray on 09/27/16 showed a new bilobed mass in the right upper lobe measuring 4.2 cm, an additional 2.3 cm pulmonary nodule, as well as an associated enlarged right superior mediastinal mass measuring 6.3cm. Further evaluation with CT Chest measured the right upper lobe mass at 4.0cm, the bilobed nodule was 2.3 x 1.7 x 2.3, and the paratracheal mass measuring 6.1 x 5.1cm and causing significant compression of the SVC with displacement although there was not total occlusion. Also noted was a mildly enlarged right hilar node. MRI brain also revealed 3 ring-enhancing lesions associated with vasogenic edema. The largest was 3.2 x 2.8cm in the left medial cerebellar hemisphere as well as two other 1.5cm lesions, one in the left cerebellar and one in the right parietal lobe. He suffered a seizure and was on the ventilator for 2 days at [facility] at the end of September. He was discharged home on October 17, He completed whole brain radiation therapy and is now on concurrent Chemoradiation with weekly Carboplatin Taxol and chest irradiation. This was started on 10/09/16 and he has had 3 cycles of therapy with the last being . He has gotten progressively weaker, fatigued with decreased appetite. He has not been having bowel movements and developed rectal bleeding. However, his intake has been minimal. He was seen on 10/26/16 with declining platelets, low fibrinogen increased D dimer and weakness and adimitted. Venous doppler demonstrated DVT and he we started on lovenox with 50 % reduction for the low platelets. Past Medical History Past Medical History Non- small cell Lung Cancer with mets to brain and Lymph nodes Hyperlipidemia Seizures Chronic tobacco dependence History of alcohol use Surgical History Patient's Surgical History: Carpal tunnel release. Tonsillectomy Right thumb surgery. Colonoscopy-2002 Lumbar spine surgery-2013 Left total hip repair-November 2013 Current Medications Home Meds Reported Medications Furosemide (Furosemide) 20 Mg Tablet, 1 TAB PO PRN, TAB 10/26/16 Potassium Chloride (Potassium Chloride) 10 Meq Capsule.er, 10 MEQ PO PRN, CAP Take 1 capsule, by mouth, two times a day with meals 10/26/16 Levetiracetam (Keppra) 500 Mg Tablet, 1.5 TAB PO BID, #180 TAB 3 Refills 10/26/16 Prochlorperazine Maleate (Prochlorperazine Maleate) 10 Mg Tablet, 1 TAB PO Q6H, #30 TAB 3 Refills 10/26/16 Ranitidine HCl (Ranitidine HCl) 150 Mg Tablet, 150 MG PO DAILY, TAB 10/26/16 Dexamethasone (Dexamethasone) 4 Mg Tablet, 1 TAB PO HS, TAB 10/26/16 Dexamethasone (Dexamethasone) 4 Mg Tablet, 2 TAB PO BID.., TAB 10/26/16 Nystatin (Nystatin) 100,000 Unit/1 Ml Oral.susp, 5 ML PO QID, ML 5 ml swish and swallow four times a day. 10/26/16 Atorvastatin Calcium (Lipitor) 20 Mg Tablet, 40 MG PO DAILY, TAB 11/12/13 Discontinued Reported Medications Aspirin (Aspirin) 81 Mg Tablet, 81 MG PO DAILY, TAB 11/16/13 Fenofibrate,Micronized (Fenofibrate) 160 Mg Tablet, 160 MG PO DAILY, TAB 11/16/13 Meloxicam (Mobic) 15 Mg Tablet, 15 MG PO DAILY, TAB 11/12/13 Ibuprofen (Ibuprofen) 200 Mg Capsule, 200 MG PO PRN, CAP 11/12/13 Multivitamins (Multivitamin) 1 Tab Tablet, 1 TAB PO DAILY, TAB 11/12/13 Iron (Iron) 18 Mg Tablet, 18 MG PO DAILY, TAB 11/12/13 Discontinued Scripts Meloxicam (Mobic) 15 Mg Tablet, 15 MG PO DAILY, #30 TAB Prov:KRISTINA CHINCHILLA 11/18/13 Oxycodone Hcl (Oxycodone Hcl) 10 Mg Tab.sr.12h, 10 MG PO Q12H for PAIN, #28 TAB Prov:KRISTINA CHINCHILLA 11/18/13 Oxycodone Hcl (Oxycodone Hcl) 5 Mg Tablet, 5-15 MG PO Q3H Y for PAIN, #60 TAB TAKE 1-3 TABS Prov:KRISTINA CHINCHILLA 11/18/13 Aspirin EC (Aspirin Ec) 325 Mg Tablet.dr, 325 MG PO BID, #84 TAB Take one tablet by mouth twice a day for 6 weeks. Prov:KRISTINA CHINCHILLA 11/18/13 Allergies: Coded Allergies: No Known Allergies (Unverified , 11/12/13) Family History Family History: Father-stroke Mother-dementia No family history of malignancy Social History Smoking Status: Current every day smoker Alcohol Intake: former alcohol drinker Marital Status: Sexuality: female partner Housing: house Advance Directives: Yes DPOA for Healthcare Only (DARIN CARDENAS), Yes Full Code Review of Systems Constitutional: REPORTS: appetite decrease, weakness, weight loss Eyes General: DENIES: dryness, pain Lids/Accessories: DENIES: erythema ENMT Mouth/Throat: DENIES: painful swallowing, sore throat Cardiovascular DENIES: chest pain GI Upper Abdomen: DENIES: nausea, vomiting Lower Abdomen: blood in stool, constipation General: oliguria, DENIES: frequency, urgency Musculoskeletal General: weakness, DENIES: joint pain Integumentary Skin: DENIES: lesion, rash Neurological General: seizures, weakness Hematologic/Lymphatic DENIES: anemia, easy bruising Physical Exam General General Nourishment: well nourished Vital Signs Vital Signs Date Time Temp Pulse Resp B/P Pulse Ox O2 Delivery O2 Flow Rate FiO2 10/27/16 15:39 96.9 86 16 104/69 91 Room Air Height (Feet): 5 Height (Inches): 11.00 Eyes Brief: FOUND: EOMI, PERRL, NOT FOUND: scleral icterus ENMT Brief: FOUND: mucosa moist Neck Brief: NOT FOUND: adenopathy, thyromegaly Cardiovascular (brief) Cardiac Brief: FOUND: pedal edema, regular rate, regular rhythm Abdomen (brief) Abdominal Brief: FOUND: BS normo active x4, soft, tender, NOT FOUND: hepatosplenomegaly Lymphatic (brief) Lymphatic Brief: NOT FOUND: adenopathy Musculoskeletal (brief) Musculoskeletal Brief: FOUND: tenderness Neurologic (brief) Neurological Brief: FOUND: cranial 2-12 intact, motor Neurologic RN Documented GCS Eye Opening: Verbal: Motor: Total: Laboratory Item Value Date Time White Blood Count 2.7 T/MM3 L # 10/27/16 0511 Platelet Count 56 T/MM3 L 10/27/16 0511 Platelet Count 53 T/MM3 L 10/26/16 1837 White Blood Count 3.7 T/MM3 L 10/26/16 1837 Hemoglobin 14.5 GM/DL # 10/27/16 0511 Hemoglobin 15.7 GM/DL 10/26/16 1837 Absolute Basophils (auto) T/MM3 10/27/16 0511 Neutrophils % (Manual) 98.0 % H 10/27/16 0511 Prothromb Time International Ratio 1.16 H 10/26/16 183 Activated Partial Thromboplast Time 26.6 SEC 10/26/161836 Fibrinogen 153 MG/DL L 10/26/16 1837 D-Dimer 2461 NG/ML H 10/26/16 183 Blood Urea Nitrogen 22.0 MG/DL H 10/27/16 0511 Creatinine 0.6 MG/DL L # 10/27/16 0511 Calcium Level 7.6 MG/DL L # 10/27/16 0511 Total Bilirubin 2.00 MG/DL H 10/27/16 0511 Unconjugated Bilirubin 1.60 MG/DL H 10/27/16 0511 Alkaline Phosphatase 40 U/L # 10/27/16 0511 Albumin 2.4 G/DL L 10/27/16 0511 Stool Occult Blood Positive A 10/27/16 0602 Lactate Dehydrogenase 485 U/L 10/27/16 0511 Laboratory Tests Test 10/26/16 18:37 10/27/16 05:11 10/27/16 06:02 10/27/16 16:54 White Blood Count 3.7T/MM3 2.7T/MM3 2.7T/MM3 Red Blood Count 4.97M/MM3 4.59M/MM3 4.83M/MM3 Hemoglobin 15.7GM/DL 14.5GM/DL 15.3GM/DL Hematocrit 44.9% 42.0% 44.0% Mean Corpuscular Volume 90.3UM3 91.5UM3 91.1UM3 Mean Corpuscular Hemoglobin 31.6UUG 31.6UUG 31.7UUG Mean Corpuscular Hemoglobin Concent 35.0GM/DL 34.5GM/DL 34.8GM/DL RDW Standard Deviation 45.5FL 46.0FL 46.2FL Platelet Count 53T/MM3 56T/MM3 56T/MM3 Mean Platelet Volume 10.5UM3 10.7UM3 10.7UM3 Prothromb Time International Ratio 1.16 Activated Partial Thromboplast Time 26.6SEC Fibrinogen 153MG/DL D-Dimer 2461NG/ML DIC Score 3POINTS Immature Granulocyte % (Auto) % Neutrophils (%) (Auto) % Lymphocytes (%) (Auto) % Monocytes (%) (Auto) % Eosinophils (%) (Auto) % Basophils (%) (Auto) % Absolute Immature Granulocyte (auto T/MM3 Absolute Neutrophils (auto) T/MM3 Absolute Lymphocytes (auto) T/MM3 Absolute Monocytes (auto) T/MM3 Absolute Eosinophils (auto) T/MM3 Absolute Basophils (auto) T/MM3 Neutrophils % (Manual) 98.0% Lymphocytes % (Manual) 1.0% Monocytes % (Manual) 1.0% Absolute Neutrophils (Manual) 2.6T/MM3 Lymphocytes # (Manual) 0.0T/MM3 Monocytes # (Manual) 0.0T/MM3 Red Cell Morphology Comment Normal Blood Smear Pathologist Review Sent for review Turbidity < 20 Sodium Level 135MEQ/L Potassium Level 3.6MEQ/L Chloride Level 104MEQ/L Carbon Dioxide Level 23MEQ/L Anion Gap 8MEQ/L Blood Urea Nitrogen 22.0MG/DL Creatinine 0.6MG/DL Glomerular Filtration Rate Calc 136 BUN/Creatinine Ratio 37RATIO Glucose Level 78MG/DL Calculated Osmolality 262MOSM/KG Calcium Level 7.6MG/DL Total Bilirubin 2.00MG/DL Conjugated Bilirubin 0.00MG/DL Unconjugated Bilirubin 1.60MG/DL Icterus Index < 2 Aspartate Amino Transf (AST/SGOT) 18U/L Alanine Aminotransferase (ALT/SGPT) 38U/L Alkaline Phosphatase 40U/L Lactate Dehydrogenase 485U/L Total Protein 4.5G/DL Albumin 2.4G/DL Globulin 2.1G/DL Albumin/Globulin Ratio 1.1RATIO Chemistry Specimen Hemolysis < 15 Stool Occult Blood Positive Radiology 10/04/[address] Right upper lobe nodule and mass are again seen with extensive right superior paratracheal adenopathy and mass effect. Right supraclavicular nodes are also seen on the study. No axillary adenopathy. Heart size is stable without pericardial effusion. Low-attenuation hepatic foci probably representing benign cysts. 10/03/16 PET The patient's known brain metastases show only very mild uptake above the brain background activity and are somewhat difficult to visualize. The left cerebellar metastasis is most easily visualized. Metallic artifact from prior dental restorations. There is an abnormally metabolic right supraclavicular node which has been previously biopsied. This shows an SUV max of 4.3. Additional intensely metabolically active superior right paratracheal romario mass has an SUV max of 6.5. Metabolic activity extends between the aortic root and SUV and into the right hilum. The right upper lobe lung mass also shows increased FDG uptake with the SUV max of 5.2. The smaller satellite nodule is also metabolically active with an SUV max of 6. No other areas of abnormal metabolic activity within the lung parenchyma. Expected myocardial uptake. Liver uptake is homogeneous without metabolically active mass. Expected genitourinary and bowel uptake. No active adenopathy or mass seen within the abdomen or pelvis. No areas of abnormal skeletal uptake appreciated. Impression/Recommendation Impression Stage IV non-small cell lung cancer with limited metastasis, brain only status post brain radiation currently on definitive chemoradiation with weekly Taxol carboplatinum. Severe obstipation with last bowel movement being 2 weeks ago and associated rectal bleeding and irritation Thrombocytopenia with elevated LDH and elevated bilirubin worrisome for DIC. Fibrinogen was slightly low and d-dimer was elevated venous Doppler shows thrombosis of the right popliteal vein. He is currently on Lovenox 50% dosage because of thrombocytopenia. We have to be careful with brain metastasis as these are prone to bleed with his anticoagulation and his low platelets. Will check DIC panel in the morning. Marasmus with no appetite possibly related to the constipation also related to the cancer and radiation. Consider use of a peripheral protein nutrition. He has midline so would have to use peripheral formulation Elevated bilirubin of uncertain etiology. Haptoglobin is currently pending rule out hemolysis. Recommendation Supportive care Anticoagulation with 50% reduction of Lovenox dose at 0.5 mg/kg. Watch closely for headache and [employer]OPMENT [employer]STER signs Anoscopy in morning with Dr. Healy. He may require manual disimpaction Follow counts MATIAS BENSON Oct 27, 2016 17:34
[2016-10-28] MEDS ORDERED: TBO-FILGRASTIM 480mcg/0.8ml INJECTION SQ ONE (10:15)
[2016-10-28] MEDS ORDERED: LORATADINE 10 MG TABLET PO ONE (10:15)
--- NOTE | 2016-10-28 10:28 | PNPDOC ---
Subjective Date DATE: 10/28/16 TIME: 10:09 Patient had good night. He is starting to have bowel movements. He denies cough , shortness of breath, headache, weakness, seizures, nausea, vomiting, difficulty with urination, fever, chills, eye pain, sore throat. He will be having endoscopy later today. Difficulty with midline through the night and IV fluids were not running during that time of difficulty. Currently has IV fluids running Objective Vital Signs Vital Signs 10/28/16 10/28/16 10/28/16 00:00 04:27 08:04 Temp 97.2 96.8 96.7 Pulse 86 78 79 Resp 18 16 16 B/P 102/66 103/65 113/67 Pulse Ox 93 92 94 O2 Delivery Room Air Room Air Room Air Height (Feet): 5 Height (Inches): 11.00 Weight (Kilograms): 95.600 General Alert, No Acute Distress Eyes (Brief) Eyes: FOUND: EOMI, PERRL, NOT FOUND: scleral icterus ENMT (Brief) ENMT: FOUND: mucosa moist, other (radiation change and scaling of the scalp), NOT FOUND: lesions Neck (Brief) Neck: NOT FOUND: adenopathy Respiratory (Brief) Respiratory: FOUND: clear all jarrell, equal bilaterally, NOT FOUND: rales Cardiovascular (Brief) Cardiac: FOUND: regular rate, regular rhythm Abdomen (Brief) Abdominal: FOUND: soft, NOT FOUND: distended, hepatosplenomegaly, tender Lymphatic (Brief) NOT FOUND: adenopathy Neurologic (Brief) FOUND: cranial 2-12 intact Psychiatric (Brief) FOUND: alert, attentive, oriented Laboratory Item Value Date Time White Blood Count 1.9 T/MM3 *L 10/28/16 0500 White Blood Count 2.7 T/MM3 L 10/27/16 1654 Platelet Count 63 T/MM3 L 10/28/16 0500 Platelet Count 56 T/MM3 L 10/27/16 1654 Hemoglobin 14.4 GM/DL 10/28/16 0500 Hemoglobin 15.3 GM/DL 10/27/16 1654 Neutrophils % (Manual) 79.0 % H 10/28/16 0500 Band Neutrophils % 10.0 % H 10/28/16 0500 Absolute Neutrophils (Manual) 1.5 T/MM3 L 10/28/16 0500 Creatinine 0.7 MG/DL L 10/28/16 0500 Creatinine 0.6 MG/DL L # 10/27/16 0511 Calcium Level 7.9 MG/DL L 10/28/16 0500 Calcium Level 7.6 MG/DL L # 10/27/16 0511 Laboratory Tests Test 10/27/16 16:54 10/28/16 05:00 White Blood Count 2.7T/MM3 1.9T/MM3 Red Blood Count 4.83M/MM3 4.60M/MM3 Hemoglobin 15.3GM/DL 14.4GM/DL Hematocrit 44.0% 42.1% Mean Corpuscular Volume 91.1UM3 91.5UM3 Mean Corpuscular Hemoglobin 31.7UUG 31.3UUG Mean Corpuscular Hemoglobin Concent 34.8GM/DL 34.2GM/DL RDW Standard Deviation 46.2FL 46.1FL Platelet Count 56T/MM3 63T/MM3 Mean Platelet Volume 10.7UM3 10.3UM3 Immature Granulocyte % (Auto) % Neutrophils (%) (Auto) % Lymphocytes (%) (Auto) % Monocytes (%) (Auto) % Eosinophils (%) (Auto) % Basophils (%) (Auto) % Absolute Immature Granulocyte (auto T/MM3 Absolute Neutrophils (auto) T/MM3 Absolute Lymphocytes (auto) T/MM3 Absolute Monocytes (auto) T/MM3 Absolute Eosinophils (auto) T/MM3 Absolute Basophils (auto) T/MM3 Neutrophils % (Manual) 79.0% Band Neutrophils % 10.0% Lymphocytes % (Manual) 3.0% Reactive Lymphocytes % 6.0% Monocytes % (Manual) 1.0% Metamyelocytes % 1.0% Absolute Neutrophils (Manual) 1.5T/MM3 Band Neutrophils # 0.2T/MM3 Lymphocytes # (Manual) 0.1T/MM3 Reactive Lymphocytes # 0.1T/MM3 Monocytes # (Manual) 0.0T/MM3 Metamyelocytes # 0.0T/MM3 Red Cell Morphology Comment Normal Turbidity < 20 Sodium Level 134MEQ/L Potassium Level 3.7MEQ/L Chloride Level 105MEQ/L Carbon Dioxide Level 24MEQ/L Anion Gap 5MEQ/L Blood Urea Nitrogen 17.0MG/DL Creatinine 0.7MG/DL Glomerular Filtration Rate Calc 114 BUN/Creatinine Ratio 24RATIO Glucose Level 96MG/DL Calculated Osmolality 260MOSM/KG Calcium Level 7.9MG/DL Icterus Index < 2 Chemistry Specimen Hemolysis < 15 Assessment & Plan Assessment Stage IV non-small cell lung cancer with limited metastasis, brain only status post brain radiation currently on definitive chemoradiation with weekly Taxol carboplatinum. Last Chemotherapy 10/23/16. Neutropenia developing. WBC decreased to 1.9 with ANC 1500. Will add Neupogen today. Severe obstipation now having bowel movements and still having rectal bleeding. Anoscopy later today. Thrombocytopenia with elevated LDH and elevated bilirubin worrisome for DIC. Fibrinogen was slightly low and d-dimer was elevated venous Doppler shows thrombosis of the right popliteal vein. He is currently on Lovenox 50% dosage because of thrombocytopenia. We have to be careful with brain metastasis as these are prone to bleed with his anticoagulation and his low platelets. Will check DIC panel . Platelets are better at 60K. Marasmus with no appetite possibly related to the constipation also related to the cancer and radiation. Consider use of a peripheral protein nutrition. He has midline so would have to use peripheral formulation. Consider use of Megace. Elevated bilirubin of uncertain etiology. Haptoglobin is currently pending rule out hemolysis. Increased indirect bilirubin can be hemolysis or possibly liver issues. Plan/Intensity of Service G-CSF today Discussed with Dr. Gallo Consider Megace or possibly some peripheral protein sparing nutrition while he has the IV Follow counts. Code Status Full Code Hospital Course Summary Disclaimer The visit summary below is not to be considered part of the above Progress Note. Hospital Course Summary 10/26/16 Admit patient to outpatient observation under the care of Dr. Gallo for abnormal laboratory studies including thrombocytopenia, elevated bilirubin and elevated d-dimer. Patient does have a known history of that is static. Non- small cell lung cancer. Consultation will be placed to Dr. Ford for further oncology and hematologic evaluation and treatment. In light of recent reported GI bleeding, will obtain stool for occult blood. Will also obtain a KUB with upright x-ray In light of constipation as patient has not had a bowel movement for [address] an IV and give patient normal saline at 100 ML per hour for gentle hydration. Zofran as needed for nausea SCDs to bilateral lower extremity for DVT prophylaxis Once home medications have been reconciled well order appropriately. does want to bring home medications to use during hospitalization. Recheck CBC and BMP tomorrow morning to follow blood counts, renal function and electrolytes. Will discuss further orders and plan of care with Dr. Gallo. At time of discharge medical care will return to primary care provider, Dr. Sousa 11/02/16.Emily: 1. Hematochezia - Patient was given a rectal suppository with small amount of results. Stool that was passed was noted to have blood present. Will continue suppositories for fecal impaction. Consult Dr. Healy for surgical evaluation. Recommended sigmoidoscopy for further evaluation of rectum and possible bleeding source. Avoid enema at this time until further discussion with Dr. Ford and following surgical evaluation by Dr. Healy. Continue to monitor closely in light of initiation of Lovenox for DVT. Hemoglobin stable at 14.5. Will continue to monitor trends closely. Will decrease IV fluids to 75cc/hr for maintainable and encourage oral intake. Pulse ox trending down at 93% today. Monitor closely for signs of fluid overload. Encourage incentive spirometry for pulmonary toileting. 2. DVT - Ultrasound of bilateral lower extremities obtained on 10/26/16 in light of bilateral edema and revealed right popliteal and tibial DVT. Dr. Gallo discussed the results with Dr. Ford and it was decided to initiate Lovenox at reduced dose of 0.5mg/kg. Dr. Healy was notified of patient's DVT and will evaluate need for possible filter placement following evaluation of rectal bleeding. Patient is at significant risk for complications. Continue to monitor closely. 3. Leukopenia - WBC on admission was 3.7. Decreased to 2.7 today (10/27/16) with 98% neutrophils. Continue to monitor trends closely and will recheck CBC in AM. Currently not neutropenic and no advanced precautions indicated. 4. Thrombocytopenia - Platelets were 53 on admission and increased slight to 56 today (10/27/16). Dr. Ford requested additional testing including hit antibody, haptoglobin, and peripheral smear - all pending. DIC panel is being obtained although has effectively been screened with labs done prior to hospitalization demonstrating minimal increase INR (1.16), slightly low PTT of 21.4 seconds, and fibrinogen just below normal range at 172 and DIC 3 (DIC <5 - Cannot exclude low grade/ chronic DIC). Monitor closely for additional bleeding especially in light of Lovenox treatment. 5. Hyperbilirubinemia - Total bilirubin 2.00 with elevated unconjugated bilirubin at 1.6. Will continue to monitor closely. 6. Non-small cell lung cancer with metastatic disease - Continue with care per Dr. Ford. Appreciate his time and expertise. 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 Monitor closely. MATIAS FORD Oct 28, 2016 10:15
--- NOTE | 2016-10-28 11:35 | DI ---
Indication: ITS.REASON: bilat edema, abn d-dimer PROCEDURE: US VENOUS DUPLEX, LOWER EXT BI: Encounter: Initial Comparison: None Technique: Color Doppler duplex and grayscale sonographic imaging of both lower extremities was performed. Findings: There is not as deep vein thrombosis seen in the right popliteal vein extending into the posterior tibial vein of the calf. There is no evidence for acute deep venous thrombosis in the left thigh. Specifically, serial graded compression was performed from the inguinal ligament to the popliteal bifurcation, bilaterally, demonstrating appropriate compressibility of the remaining deep venous system. In addition, color and pulsed Doppler demonstrate appropriate spontaneous flow, variation with respiration, and augmentation with calf compression. At the ankle, normal flow is identified in the posterior tibial veins; these vessels are also normal in caliber. Impression: 1. Nonocclusive DVT in the right popliteal. 2. No evidence of acute DVT in the left lower limb. There is a preliminary report by [facility]. .
--- NOTE | 2016-10-28 11:36 | DI ---
Indication: ITS.REASON: constipation PROCEDURE: KUB W/UPRIGHT: Encounter: Initial Comparison: None Findings: The visualized lung bases are clear. There is no free air on the upright view. The bowel gas pattern is nonobstructive and nonspecific. Gas is seen in nondilated small and large bowel to the level of the rectum. Moderate stool is seen throughout the colon. Increased stool in the rectal vault. Impression: Nonobstructive nonspecific bowel gas pattern. .
[2016-10-28 11:54] VITALS: BP 113/68; PULSE 74; RESP 18; TEMP 95.5; O2SAT 94
--- NOTE | 2016-10-28 12:48 | PNF ---
DATE 10/28/16 FINDINGS Mr. Nash this morning was in good spirits. He states that he has continued to notice some blood during the process of defecation. He also notices some "smears of blood" within his "diaper". Patient states that he did have some bowel activity/bowel movements following intake of his cathartic. PHYSICAL EXAMINATION VITAL SIGNS: Afebrile, normotensive. Current vitals include temperature 96.7, pulse 79, respirations 16, blood pressure 113/67, SAO2 94% on room air. CHEST: Clear to auscultation bilaterally. HEART: Regular rate and rhythm. Normal S1 and S2 without gallops, murmurs or clicks. ABDOMEN: Palpation of the abdomen reveals it to be soft and nontender. I do not appreciate any evidence for hepatosplenomegaly nor abnormal masses. RECTAL: Patient was placed in a left lateral decubitus position. Buttocks were somewhat spread apart which did elicit discomfort to the patient. Visualization of the perianal region revealed a thrombosed external hemorrhoid on the order of about 2 cm in length and about a cm in width at the 9 o'clock position with 12 o'clock being posterior midline. One could see some minimal amount of blood around the perianal region as well. A digital rectal examination was performed. Patient complained of severe pain during the process of the rectal examination and "moved away" fairly quickly. Did not appreciate any evidence for hard stool within the rectal vault. No discrete rectal masses were noted. Anoscopy was then attempted at the bedside. Upon anoscopy one could see circumferential internal hemorrhoidal disease with a component of some bright red blood noted within the anal canal. It was difficult to ascertain for sure that the blood was coming from the internal hemorrhoids. LABORATORY/RADIOGRAPHIC DATE The patient had a CBC today and his white count is low at 1.9. Platelet count remains low at 63. BMP obtained and found to be essentially within normal limits. ASSESSMENT 66-year-old gentleman with metastatic [id number] lung cancer. Patient with recent development of deep vein thrombosis requiring anticoagulation. Patient with component of rectal bleeding, most likely hemorrhoidal in its etiology. PLAN The patient informs me that it has been about 10-12 years since his last colonoscopy which she reports was normal. I informed the patient and his that is as a general role in this type as his situation one would proceed with colonoscopy for further evaluation of the underlying etiology for the rectal bleeding. If the patient was found to have significant bleeding internal hemorrhoids without the other circumstances present one may also intervene from a surgical standpoint. Given the fact the patient is neutropenic, thrombocytopenic, and is in the process of undergoing chemoradiation for his non-small cell metastatic lung cancer this does alter how one would proceed from a surgical standpoint. I would be a little reluctant in this situation to proceed with colonoscopy for further evaluation. Hopefully his blood count will improve as well as overall functional status and one perhaps at that time could proceed with endoscopy for further evaluation of his rectal bleeding. We will go ahead and treat the patient empirically for suspected bleeding internal hemorrhoids. Will begin to use of hydrocortisone suppositories. Will continue to follow along with the patient's care. JANE
--- NOTE | 2016-10-28 14:29 | PNPDOC ---
Subjective Date DATE: 10/28/16 TIME: 14:08 Subjective Mr. Nash was seen with his present. He reports "I pooped". Rectal pressure and pain have improved significantly. Nursing reports minor rectal bleeding and that frequency of diarrhea has improved today after multiple stools yesterday. Patient denies dyspnea or cough. He reports no nausea or vomiting but is eating very little and reports that his appetite is simply not there. He is getting up to the bathroom and shower today but has not ambulated outside of the room. He denies lightheadedness or difficulty urinating. Objective Vital Signs Vital signs Vital Signs Date Time Temp Pulse Resp B/P Pulse Ox O2 Delivery O2 Flow Rate FiO2 10/28/16 11:54 95.5 74 18 113/68 94 Room Air EXAM General-NAD, drowsy but responds to questions appropriately HEENT-conjunctiva clear, sclera anicteric, oral membranes clear with faint grayish coat on tongue Lungs-respirations nonlabored, good airflow, breath sounds clear Cardiac-regular rhythm, S1-S2 Abdomen-soft, nontender, bowel sounds present although diminished Extremities-trace edema right ankle, calf softer than it was prior 2 days; virtually no edema left ankle Neuro-moving all extremities spontaneously, sensation intact 4 Psych-flat affect Height (Feet): 5 Height (Inches): 11.00 Weight (Kilograms): 95.600 Laboratory Laboratory Laboratory Tests 10/27/16 05:11 10/28/16 05:00 Laboratory Tests 10/26/16 18:37 10/27/16 05:11 10/27/16 16:54 10/28/16 05:00 Segs 79, bands 10, lymphocytes 3, reactive lymphs 6, monocyte 1, metas 1 HIT antibody pending Radiology KUB pending Assessment & Plan Problems: (1) DVT (deep venous thrombosis) Status: Acute Qualifiers: DVT location: lower extremity Affected thrombotic vein of extremity: popliteal Laterality: right Chronicity: acute Qualified Codes: I82.431 - Acute embolism and thrombosis of right popliteal vein Assessment & Plan: popliteal and tibial on right - 10/26/16. (2) Hematochezia Status: Acute Assessment & Plan: Minor, hemoglobin 17 this morning (3) Non-small cell cancer of right lung Status: Chronic (4) Metastasis Status: Chronic Assessment & Plan: Metastatic disease to the brain-3 lesions recently reported ; XRT initiated/on tapering Decadron (5) Leukopenia due to antineoplastic chemotherapy Status: Acute (6) Elevated bilirubin Status: Acute Assessment & Plan: 3.0 on the date of admission; has increased progressively from 1.2 on 10/17 (7) Thrombocytopenia Status: Acute Assessment & Plan: Platelet count 60 in the office earlier today, 111 on 10/17 with subsequent decline (8) Elevated d-dimer Status: Acute Assessment & Plan: present on admission. (9) Constipation Status: Chronic Assessment & Plan: Last bowel movement 7-10 days or to admission (10) History of seizures Assessment & Plan: Due to brain metastases/vasogenic edema (11) Edema Status: Chronic Assessment & Plan: Right greater than left lower extremity (12) Hyperlipemia Status: Chronic (13) Tobacco dependence Status: Chronic (14) History of alcohol use Status: Chronic (15) Anorexia Status: Acute Assessment & Plan: c/w malignancy (16) Hemorrhoids Status: Acute (17) Thrush, oral Status: Acute Assessment Day 3 Lovenox, platelet count stable and no increased bleeding reported. Right calf softer than on admission and no pleuritic pain. Hemorrhoids reported by Dr. Healy-hydrocortisone suppositories initiated. Rectal symptoms improved after multiple stools and nursing reports suggest less rectal bleeding. Hemoglobin relatively stable, minor fluctuation. KUB to be re-checked this afternoon to evaluate stool content and prior fecal impaction. Discussed need to continue bowel regimen to prevent recurrent constipation/obstipation. Oral intake poor, nutritional supplements discussed and will try Boost Clear and Magic cup as alternatives to standard supplements which patient does not like. ProcalAmine initiated while hospitalized after discussion with Dr. Ford. Increase physical activity-ambulating in halls with nursing. Patient reports whole brain radiation completed, lung radiation ongoing-suspect therapy will be needed tomorrow. White count continues to drop following recent chemotherapy, G-CSF initiated. Recheck bilirubin and coag markers in a.m. On nystatin for thrush. Plan/Intensity of Service Laboratory data reviewed, high-risk medications in use and patient at high risk for complications. Discussed with Dr. Healy and Dr. Ford. KUB ordered/ pending. Discussed with nursing and who provide supplemental history. DVT Prophylaxis: Lovenox Code Status Full Code Hospital Course Summary Disclaimer The hospital course summary below is not to be considered part of the above Progress Note. Hospital Course Summary 10/26/16 Admit patient to outpatient observation under the care of Dr. Gallo for abnormal laboratory studies including thrombocytopenia, elevated bilirubin and elevated d-dimer. Patient does have a known history of that is static. Non- small cell lung cancer. Consultation will be placed to Dr. Ford for further oncology and hematologic evaluation and treatment. In light of recent reported GI bleeding, will obtain stool for occult blood. Will also obtain a KUB with upright x-ray In light of constipation as patient has not had a bowel movement for [address] an IV and give patient normal saline at 100 ML per hour for gentle hydration. Zofran as needed for nausea SCDs to bilateral lower extremity for DVT prophylaxis Once home medications have been reconciled well order appropriately. does want to bring home medications to use during hospitalization. Recheck CBC and BMP tomorrow morning to follow blood counts, renal function and electrolytes. Will discuss further orders and plan of care with Dr. Gallo. At time of discharge medical care will return to primary care provider, Dr. Sousa 11/02/16.[place]akian: 1. Hematochezia - Patient was given a rectal suppository with small amount of results. Stool that was passed was noted to have blood present. Will continue suppositories for fecal impaction. Consult Dr. Healy for surgical evaluation. Recommended sigmoidoscopy for further evaluation of rectum and possible bleeding source. Avoid enema at this time until further discussion with Dr. Ford and following surgical evaluation by Dr. Healy. Continue to monitor closely in light of initiation of Lovenox for DVT. Hemoglobin stable at 14.5. Will continue to monitor trends closely. Will decrease IV fluids to 75cc/hr for maintainable and encourage oral intake. Pulse ox trending down at 93% today. Monitor closely for signs of fluid overload. Encourage incentive spirometry for pulmonary toileting. 2. DVT - Ultrasound of bilateral lower extremities obtained on 10/26/16 in light of bilateral edema and revealed right popliteal and tibial DVT. Dr. Gallo discussed the results with Dr. Ford and it was decided to initiate Lovenox at reduced dose of 0.5mg/kg. Dr. Healy was notified of patient's DVT and will evaluate need for possible filter placement following evaluation of rectal bleeding. Patient is at significant risk for complications. Continue to monitor closely. 3. Leukopenia - WBC on admission was 3.7. Decreased to 2.7 today (10/27/16) with 98% neutrophils. Continue to monitor trends closely and will recheck CBC in AM. Currently not neutropenic and no advanced precautions indicated. 4. Thrombocytopenia - Platelets were 53 on admission and increased slight to 56 today (10/27/16). Dr. Ford requested additional testing including hit antibody, haptoglobin, and peripheral smear - all pending. DIC panel is being obtained although has effectively been screened with labs done prior to hospitalization demonstrating minimal increase INR (1.16), slightly low PTT of 21.4 seconds, and fibrinogen just below normal range at 172 and DIC 3 (DIC <5 - Cannot exclude low grade/ chronic DIC). Monitor closely for additional bleeding especially in light of Lovenox treatment. 5. Hyperbilirubinemia - Total bilirubin 2.00 with elevated unconjugated bilirubin at 1.6. Will continue to monitor closely. 6. Non-small cell lung cancer with metastatic disease - Continue with care per Dr. Ford. Appreciate his time and expertise. 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 Monitor closely. 10/28 Day 3 Lovenox, platelet count stable and no increased bleeding reported. Right calf softer than on admission and no pleuritic pain. Hemorrhoids reported by Dr. Healy-hydrocortisone suppositories initiated. Rectal symptoms improved after multiple stools and nursing reports suggest less rectal bleeding. Hemoglobin relatively stable, minor fluctuation. KUB to be re-checked this afternoon to evaluate stool content and prior fecal impaction. Oral intake poor, nutritional supplements discussed and will try Boost Clear and Magic cup as alternatives to standard supplements which patient does not like. ProcalAmine initiated while hospitalized after discussion with Dr. Ford. Increase physical activity-ambulating in halls with nursing. Patient reports whole brain radiation completed, lung radiation ongoing-suspect therapy will be needed tomorrow. White count continues to drop following recent chemotherapy, G-CSF initiated. TOM GALLO MD Oct 28, 2016 14:16
[2016-10-28 16:00] VITALS: BP 114/71; PULSE 84; RESP 16; TEMP 96.3; O2SAT 93
[2016-10-28 19:38] VITALS: BP 113/65; PULSE 90; RESP 18; TEMP 96.7; O2SAT 94
--- NOTE | 2016-10-28 19:43 | NUR ---
status Pt A/O x3, V/S stable on RA. Pt denies pain at this time and no PRN meds given. Dr Ford in to see pt, N.O. for granix, given and watched pt for pain with parameters to call [facility] for PRN pain meds. Dr Noland in to see, pt tolerated procedure well, denies pain after. Pt having liquid brown stool with little blood, remains inc of stool. Pt ambulating well in room with walker, ambulated around 2 units this afternoon, denies SOA. Pt eating well, family brings food that he will eat also. wanted me to mix nutritional shake in with shake she bought at store before he saw it, ( she heard dr wanting him to have and he didn't like taste).
[2016-10-28] MEDS: RANITIDINE 150 MG TABLET PO SCH (21:09)
[2016-10-28] MEDS: HYDROCORTISONE 25 MG RECTAL SUPPOSITORY RECTALLY SCH (21:09)
[2016-10-28] MEDS: ATORVASTATIN 40 MG TABLET PO SCH (21:09)
[2016-10-29 00:15] VITALS: BP 120/73; PULSE 72; RESP 12; TEMP 96.8; O2SAT 95
[2016-10-29] MEDS: PROCHLORPERAZINE 10 MG TABLET PO SCH ×3 (00:19→13:29)
[2016-10-29 04:19] VITALS: BP 115/69; PULSE 74; RESP 12; TEMP 96.8; O2SAT 94
--- NOTE | 2016-10-29 05:20 | NUR ---
SHIFT SUMMARY PATIENT HAS BEEN ALERT AND ORIENTED X3 THIS SHIFT. VITAL SIGNS HAVE BEEN STABLE ON ROOM AIR. PATIENT CONTINUES TO NEED FREQUENT TRIPS TO THE BATHROOM TO VOID, BUT DOES NOT USUALLY CALL FOR ASSISTANCE. PATIENT IS STABLE WITH WALKER AT STAND BY. FAMILY WILL BE IN THIS AM. WILL CONTINUE TO MONITOR.
[2016-10-29 05:46] LABS: HGB - HEMOGLOBIN 13.8 GM/DL (13.5-17.5); MEAN CORPUSCULAR HGB 31.6 UUG (26-34); MEAN CORPUSCULAR HGB CONC(MCHC 34.5 GM/DL (31-37); MEAN CORPUSCULAR VOLUME 91.5 UM3 (80-100); MEAN PLATELET VOLUME 11.2 UM3 (9.4-12.4); RED BLOOD COUNT 4.37 M/MM3 (4.50-5.90); WBC - WHITE BLOOD COUNT 4.8 T/MM3 (4.5-11.0)
[2016-10-29 05:47] LABS: ALBUMIN 2.6 G/DL (3.5-5.0); ALBUMIN/GLOBULIN RATIO 1.2 RATIO (1.1-2.2); ALKALINE PHOSPHATASE 37 U/L (38-126); ALT (SGPT) 37 U/L (21-72); ANION GAP 5 MEQ/L (5-15); AST (SGOT) 20 U/L (17-59); BUN/CREATININE RATIO 25 RATIO (6-26); CALCIUM 8.1 MG/DL (8.4-10.2); CHLORIDE 103 MEQ/L (98-107); CO2 - CARBON DIOXIDE 24 MEQ/L (22-30); CREATININE 0.6 MG/DL (0.8-1.5); GLOMERULAR FILTRATION RATE 136; GLUCOSE 109 MG/DL (75-110); LDH 628 U/L (313-618); MAGNESIUM 2.3 MG/DL (1.6-2.3); POTASSIUM 3.8 MEQ/L (3.6-5); SODIUM 132 MEQ/L (134-144); TOTAL PROTEIN 4.8 G/DL (6.3-8.2)
[2016-10-29 05:53] LABS: HCT - HEMATOCRIT 39.9 % (41-53); HGB - HEMOGLOBIN 13.9 GM/DL (13.5-17.5); MEAN CORPUSCULAR HGB 31.9 UUG (26-34); MEAN CORPUSCULAR HGB CONC(MCHC 34.8 GM/DL (31-37); MEAN CORPUSCULAR VOLUME 91.5 UM3 (80-100); MEAN PLATELET VOLUME 10.6 UM3 (9.4-12.4); RED BLOOD COUNT 4.36 M/MM3 (4.50-5.90); WBC - WHITE BLOOD COUNT 4.6 T/MM3 (4.5-11.0)
[2016-10-29 05:55] LABS: PREALBUMIN 21.9 MG/DL (17.6-36.0)
[2016-10-29 06:05] LABS: PROTHROMBIN TIME 12.1 SEC (9.31-12.49); PTT 29.5 SEC (24-36)
[2016-10-29 06:28] LABS: BAND NEUTROPHILS # 0.6 T/MM3; LYMPHOCYTES # (MANUAL) 0.1 T/MM3 (1-4.8); MONOCYTES # (MANUAL) 0.1 T/MM3 (0-0.8); NEUTROPHILS #(MANUAL)-ABSOLUTE 3.8 T/MM3 (1.8-7.7); TOTAL CELLS COUNTED 100 %
[2016-10-29 06:30] LABS: ANISOCYTOSIS 1+
[2016-10-29 07:45] VITALS: BP 113/73; PULSE 81; RESP 16; TEMP 97; O2SAT 91
[2016-10-29 08:05] LABS: INR 1.11 (0.76-1.04)
[2016-10-29] MEDS ORDERED: POLYETHYL.GLYCOL 3350 PACKET 17gm PO SCH (09:00)
--- NOTE | 2016-10-29 09:01 | DI ---
Indication: ITS.REASON: obstpation PROCEDURE: KUB: Encounter: Initial Comparison: 10/26/2016 Findings: Two views to cover the entire abdomen in the supine position demonstrates less stool in the rectosigmoid vault but moderate stool throughout the descending colon. There is some colonic gas in the transverse and descending segments and a small amount small bowel gas the region of terminal ileum. Findings could reflect a mild obstipation pattern, but the degree of stool the rectum is less. No definite free air or visceromegaly. The extreme lung bases are clear. Degenerative changes of spine are noted and there is a total hip arthroplasty on the left. Impression: 1. Less stool appears to be present within the rectal vault but a mild obstipation pattern would be difficult to exclude. 2. No definite bowel gas pattern to suggest high-grade obstruction or significant ileus. .
[2016-10-29] MEDS: DEXAMETHASONE 4 MG TABLET PO SCH ×2 (09:20→15:02)
[2016-10-29] MEDS: LEVETIRACETAM 500 MG TABLET PO SCH (09:21)
[2016-10-29] MEDS: NYSTATIN 500,000 units/5ml Susp UD PO SCH ×2 (09:21→13:29)
[2016-10-29] MEDS: SENNA + DOCUSATE TAB PO SCH (09:22)
[2016-10-29] MEDS: ENOXAPARIN 60 MG/0.6 ML INJECTION SQ SCH ×2 (09:22→15:26)
--- NOTE | 2016-10-29 11:13 | CONSPD ---
Consultation Info Date DATE: 10/29/16 TIME: 11:10 Date of Consultation: Oct 27, 2016 HPI - Adult Date DATE: 10/29/16 TIME: 11:10 General Chief Complaint: Non small cell lung cancer, elevated d-dimer, abnormal labs Past Medical History Past Medical History Non- small cell Lung Cancer with mets to brain and Lymph nodes Hyperlipidemia Seizures Chronic tobacco dependence History of alcohol use Surgical History Patient's Surgical History: Carpal tunnel release. Tonsillectomy Right thumb surgery. Colonoscopy-2002 Lumbar spine surgery-2013 Left total hip repair-November 2013 Current Medications Home Meds Reported Medications Furosemide (Furosemide) 20 Mg Tablet, 1 TAB PO PRN, TAB 10/26/16 Potassium Chloride (Potassium Chloride) 10 Meq Capsule.er, 10 MEQ PO PRN, CAP Take 1 capsule, by mouth, two times a day with meals 10/26/16 Levetiracetam (Keppra) 500 Mg Tablet, 1.5 TAB PO BID, #180 TAB 3 Refills 10/26/16 Prochlorperazine Maleate (Prochlorperazine Maleate) 10 Mg Tablet, 1 TAB PO Q6H, #30 TAB 3 Refills 10/26/16 Ranitidine HCl (Ranitidine HCl) 150 Mg Tablet, 150 MG PO DAILY, TAB 10/26/16 Dexamethasone (Dexamethasone) 4 Mg Tablet, 1 TAB PO HS, TAB 10/26/16 Dexamethasone (Dexamethasone) 4 Mg Tablet, 2 TAB PO BID.., TAB 10/26/16 Nystatin (Nystatin) 100,000 Unit/1 Ml Oral.susp, 5 ML PO QID, ML 5 ml swish and swallow four times a day. 10/26/16 Atorvastatin Calcium (Lipitor) 20 Mg Tablet, 40 MG PO DAILY, TAB 11/12/13 Discontinued Reported Medications Aspirin (Aspirin) 81 Mg Tablet, 81 MG PO DAILY, TAB 11/16/13 Fenofibrate,Micronized (Fenofibrate) 160 Mg Tablet, 160 MG PO DAILY, TAB 11/16/13 Meloxicam (Mobic) 15 Mg Tablet, 15 MG PO DAILY, TAB 11/12/13 Ibuprofen (Ibuprofen) 200 Mg Capsule, 200 MG PO PRN, CAP 11/12/13 Multivitamins (Multivitamin) 1 Tab Tablet, 1 TAB PO DAILY, TAB 11/12/13 Iron (Iron) 18 Mg Tablet, 18 MG PO DAILY, TAB 11/12/13 Discontinued Scripts Meloxicam (Mobic) 15 Mg Tablet, 15 MG PO DAILY, #30 TAB Prov:KRISTINA CHINCHILLA 11/18/13 Oxycodone Hcl (Oxycodone Hcl) 10 Mg Tab.sr.12h, 10 MG PO Q12H for PAIN, #28 TAB Prov:KRISTINA CHINCHILLA 11/18/13 Oxycodone Hcl (Oxycodone Hcl) 5 Mg Tablet, 5-15 MG PO Q3H Y for PAIN, #60 TAB TAKE 1-3 TABS Prov:KRISTINA CHINCHILLA 11/18/13 Aspirin EC (Aspirin Ec) 325 Mg Tablet.dr, 325 MG PO BID, #84 TAB Take one tablet by mouth twice a day for 6 weeks. Prov:KRISTINA CHINCHILLA 11/18/13 Allergies: Coded Allergies: No Known Allergies (Unverified , 11/12/13) Family History Family History: Father-stroke Mother-dementia No family history of malignancy Social History Smoking Status: Current every day smoker Alcohol Intake: former alcohol drinker Marital Status: Sexuality: female partner Housing: house Advance Directives: Yes DPOA for Healthcare Only (DARIN CARDENAS), Yes Full Code GS Review of Systems General REPORTS other (fatigue) Gastrointestional REPORTS blood in stools, REPORTS other (decrease appetite) Neurological REPORTS seizures, REPORTS muscle weakness 10-point Review of Systems Comments recent chemotherapy and radiation at [facility] for lung cancer GS Physical Exam Vital Signs Date Time Temp Pulse Resp B/P Pulse Ox O2 Delivery O2 Flow Rate FiO2 10/29/16 07:45 97.0 81 16 113/73 91 Room Air Height (Feet): 5 Height (Inches): 11.00 Weight (Kilograms): 95.600 BMI 29.5 Laboratory Laboratory Tests 10/27/16 05:11 10/28/16 05:00 10/29/16 04:32 Laboratory Tests 10/26/16 18:37 10/27/16 05:11 10/27/16 16:54 10/28/16 05:00 10/29/16 04:32 LAURITA POTTS APRN, CWS Oct 29, 2016 11:13
[2016-10-29] MEDS: HYDROCORTISONE 25 MG RECTAL SUPPOSITORY RECTALLY SCH (11:20)
--- NOTE | 2016-10-29 11:25 | PNPDOC ---
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 He is alert and oriented. Denies pain. Feels his constipation has been relieved. States has had 2 small BMs today, continues to have mild rectal bleeding with each stool. Denies increased bleeding. No epistaxis or any other bleeding. General: No fever, no night sweats Eyes: No redness, no pain, no diplopia ENT: No mouth sores, no trouble swallowing Cardiac: No chest pain no palpitations Pulmonary: No cough, no shortness of breath, no wheezing Abdomen: No pain, no nausea vomiting, no diarrhea or constipation. Positive minimal bleeding with stools : No urgency, frequency, dysuria, or hematuria Musculoskeletal: No arthritis, no myalgias Neurological: No headaches, no focal weakness Skin: No rash, no sores Psychiatric: No anxiety, no depression Objective Vital Signs Vital Signs 10/29/16 10/29/16 10/29/16 00:15 04:19 07:45 Temp 96.8 96.8 97.0 Pulse 72 74 81 Resp 12 12 16 B/P 120/73 115/69 113/73 Pulse Ox 95 94 91 O2 Delivery Room Air Room Air Room Air Height (Feet): 5 Height (Inches): 11.00 Weight (Kilograms): 95.600 General Alert, Orientated x 3 Eyes (Brief) Eyes: FOUND: EOMI, PERRL, NOT FOUND: scleral icterus ENMT (Brief) ENMT: FOUND: mucosa moist, other (radiation change and scaling of the scalp), NOT FOUND: lesions Neck (Brief) Neck: NOT FOUND: adenopathy Respiratory (Brief) Respiratory: FOUND: clear all jarrell, equal bilaterally, NOT FOUND: rales Cardiovascular (Brief) Cardiac: FOUND: pedal edema (1+ edema bilateral lower extremities), regular rate, regular rhythm Abdomen (Brief) Abdominal: FOUND: BS normo active x4, soft, NOT FOUND: distended, hepatosplenomegaly, tender Lymphatic (Brief) NOT FOUND: adenopathy Musculoskeletal (Brief) NOT FOUND: loss of motion, tenderness Neurologic (Brief) FOUND: cranial 2-12 intact, motor (moves all 4 extremities equally) Psychiatric (Brief) FOUND: alert, attentive, normal affect, oriented Laboratory Laboratory Tests Test 10/28/16 22:29 10/29/16 04:32 Glucometer 127mg/dL White Blood Count 4.8T/MM3 Red Blood Count 4.37M/MM3 Hemoglobin 13.8GM/DL Hematocrit 40.0% Mean Corpuscular Volume 91.5UM3 Mean Corpuscular Hemoglobin 31.6UUG Mean Corpuscular Hemoglobin Concent 34.5GM/DL RDW Standard Deviation 45.1FL Platelet Count 67T/MM3 Mean Platelet Volume 11.2UM3 Immature Granulocyte % (Auto) % Neutrophils (%) (Auto) % Lymphocytes (%) (Auto) % Monocytes (%) (Auto) % Eosinophils (%) (Auto) % Basophils (%) (Auto) % Absolute Immature Granulocyte (auto T/MM3 Absolute Neutrophils (auto) T/MM3 Absolute Lymphocytes (auto) T/MM3 Absolute Monocytes (auto) T/MM3 Absolute Eosinophils (auto) T/MM3 Absolute Basophils (auto) T/MM3 Neutrophils % (Manual) 83.0% Band Neutrophils % 12.0% Lymphocytes % (Manual) 3.0% Monocytes % (Manual) 2.0% Absolute Neutrophils (Manual) 3.8T/MM3 Band Neutrophils # 0.6T/MM3 Lymphocytes # (Manual) 0.1T/MM3 Monocytes # (Manual) 0.1T/MM3 Anisocytosis 1+ Red Cell Morphology Comment Abnormal Prothromb Time International Ratio 1.11 Activated Partial Thromboplast Time 29.5SEC Fibrinogen 232MG/DL D-Dimer 868NG/ML DIC Score 3POINTS Turbidity < 20 Sodium Level 132MEQ/L Potassium Level 3.8MEQ/L Chloride Level 103MEQ/L Carbon Dioxide Level 24MEQ/L Anion Gap 5MEQ/L Blood Urea Nitrogen 15.0MG/DL Creatinine 0.6MG/DL Glomerular Filtration Rate Calc 136 BUN/Creatinine Ratio 25RATIO Glucose Level 109MG/DL Calculated Osmolality 257MOSM/KG Calcium Level 8.1MG/DL Magnesium Level 2.3MG/DL Total Bilirubin 1.50MG/DL Icterus Index < 2 Aspartate Amino Transf (AST/SGOT) 20U/L Alanine Aminotransferase (ALT/SGPT) 37U/L Alkaline Phosphatase 37U/L Lactate Dehydrogenase 628U/L Total Protein 4.8G/DL Albumin 2.6G/DL Globulin 2.2G/DL Albumin/Globulin Ratio 1.2RATIO Prealbumin 21.9MG/DL Chemistry Specimen Hemolysis 40 Assessment & Plan Assessment Stage IV non-small cell lung cancer with limited metastasis, brain only status post brain radiation currently on definitive chemoradiation with weekly Taxol carboplatinum. Last Chemotherapy 10/23/16. Neutropenia developing. WBC decreased to 1.9 with ANC 1500. Will add Neupogen today. Severe obstipation now having bowel movements and still having rectal bleeding. Anoscopy later today. Thrombocytopenia with elevated LDH and elevated bilirubin worrisome for DIC. Fibrinogen was slightly low and d-dimer was elevated venous Doppler shows thrombosis of the right popliteal vein. He is currently on Lovenox 50% dosage because of thrombocytopenia. We have to be careful with brain metastasis as these are prone to bleed with his anticoagulation and his low platelets. Will check DIC panel . Platelets are better at 60K. Marasmus with no appetite possibly related to the constipation also related to the cancer and radiation. Consider use of a peripheral protein nutrition. He has midline so would have to use peripheral formulation. Consider use of Megace. Elevated bilirubin of uncertain etiology. Haptoglobin is currently pending rule out hemolysis. Increased indirect bilirubin can be hemolysis or possibly liver issues. Plan/Intensity of Service G-CSF today Discussed with Dr. Gallo Consider Megace or possibly some peripheral protein sparing nutrition while he has the IV Follow counts. Code Status Full Code Hospital Course Summary Disclaimer The visit summary below is not to be considered part of the above Progress Note. Hospital Course Summary 10/26/16 Admit patient to outpatient observation under the care of Dr. Gallo for abnormal laboratory studies including thrombocytopenia, elevated bilirubin and elevated d-dimer. Patient does have a known history of that is static. Non- small cell lung cancer. Consultation will be placed to Dr. Ford for further oncology and hematologic evaluation and treatment. In light of recent reported GI bleeding, will obtain stool for occult blood. Will also obtain a KUB with upright x-ray In light of constipation as patient has not had a bowel movement for [address] an IV and give patient normal saline at 100 ML per hour for gentle hydration. Zofran as needed for nausea SCDs to bilateral lower extremity for DVT prophylaxis Once home medications have been reconciled well order appropriately. does want to bring home medications to use during hospitalization. Recheck CBC and BMP tomorrow morning to follow blood counts, renal function and electrolytes. Will discuss further orders and plan of care with Dr. Gallo. At time of discharge medical care will return to primary care provider, Dr. Sousa 11/02/16.Mirakian: 1. Hematochezia - Patient was given a rectal suppository with small amount of results. Stool that was passed was noted to have blood present. Will continue suppositories for fecal impaction. Consult Dr. Healy for surgical evaluation. Recommended sigmoidoscopy for further evaluation of rectum and possible bleeding source. Avoid enema at this time until further discussion with Dr. Ford and following surgical evaluation by Dr. Healy. Continue to monitor closely in light of initiation of Lovenox for DVT. Hemoglobin stable at 14.5. Will continue to monitor trends closely. Will decrease IV fluids to 75cc/hr for maintainable and encourage oral intake. Pulse ox trending down at 93% today. Monitor closely for signs of fluid overload. Encourage incentive spirometry for pulmonary toileting. 2. DVT - Ultrasound of bilateral lower extremities obtained on 10/26/16 in light of bilateral edema and revealed right popliteal and tibial DVT. Dr. Gallo discussed the results with Dr. Ford and it was decided to initiate Lovenox at reduced dose of 0.5mg/kg. Dr. Healy was notified of patient's DVT and will evaluate need for possible filter placement following evaluation of rectal bleeding. Patient is at significant risk for complications. Continue to monitor closely. 3. Leukopenia - WBC on admission was 3.7. Decreased to 2.7 today (10/27/16) with 98% neutrophils. Continue to monitor trends closely and will recheck CBC in AM. Currently not neutropenic and no advanced precautions indicated. 4. Thrombocytopenia - Platelets were 53 on admission and increased slight to 56 today (10/27/16). Dr. Ford requested additional testing including hit antibody, haptoglobin, and peripheral smear - all pending. DIC panel is being obtained although has effectively been screened with labs done prior to hospitalization demonstrating minimal increase INR (1.16), slightly low PTT of 21.4 seconds, and fibrinogen just below normal range at 172 and DIC 3 (DIC <5 - Cannot exclude low grade/ chronic DIC). Monitor closely for additional bleeding especially in light of Lovenox treatment. 5. Hyperbilirubinemia - Total bilirubin 2.00 with elevated unconjugated bilirubin at 1.6. Will continue to monitor closely. 6. Non-small cell lung cancer with metastatic disease - Continue with care per Dr. Ford. Appreciate his time and expertise. 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 Monitor closely. 10/28 Day 3 Lovenox, platelet count stable and no increased bleeding reported. Right calf softer than on admission and no pleuritic pain. Hemorrhoids reported by Dr. Healy-hydrocortisone suppositories initiated. Rectal symptoms improved after multiple stools and nursing reports suggest less rectal bleeding. Hemoglobin relatively stable, minor fluctuation. KUB to be re-checked this afternoon to evaluate stool content and prior fecal impaction. Oral intake poor, nutritional supplements discussed and will try Boost Clear and Magic cup as alternatives to standard supplements which patient does not like. ProcalAmine initiated while hospitalized after discussion with Dr. Ford. Increase physical activity-ambulating in halls with nursing. Patient reports whole brain radiation completed, lung radiation ongoing-suspect therapy will be needed tomorrow. White count continues to drop following recent chemotherapy, G-CSF initiated. MATIAS FODR 10/29/16 1346: Assessment & Plan Assessment Patient examined, chart reviewed, heparin-induced thrombocytopenia antibody and Erica were negative. Platelets are up to 67,000. Fibrinogen is now normal and d- dimer has decreased dramatically he would like to be able to go home and I am okay with the patient being dismissed. He will follow up with Dr. Gallardo later this week. Will arrange for Fragmin 7500 units daily in the office. Agree with documentation by Nanci Daniel and I participated in the development plan of care of this patient. JOI DANIEL APRN Oct 29, 2016 11:25 MATIAS FORD Oct 29, 2016 13:46
[2016-10-29 11:36] VITALS: BP 101/63; PULSE 93; RESP 16; TEMP 95.8; O2SAT 92
[2016-10-29] MEDS ORDERED: NYST5ORA7 PO (14:16)
[2016-10-29] MEDS ORDERED: HYDR25SU11 RECTALLY (14:16)
[2016-10-29] MEDS ORDERED: [UNRECOGNIZED DRUG - CODE] SQ ×2 (14:16→14:26)
[2016-10-29] MEDS ORDERED: DEXA4TAB PO (14:16)
[2016-10-29] MEDS ORDERED: MAGN400O4 PO (15:09)
[2016-10-29] MEDS ORDERED: POLY17PO18 PO (15:09)
[2016-10-29] MEDS ORDERED: SENN-152 PO (15:09)
--- NOTE | 2016-10-29 17:12 | NUR ---
MARYSOL HITCHCOCK IS 13 Addendum: 10/29/16 at 1712 by RENEA GARCIA Amended: Links added.
--- NOTE | 2016-10-29 17:13 | NUR ---
CM PRIOR TO DC: SPOKE WITH PT AND . INTRODUCED SELF, EXPLAINED ROLE, PROVIDED CONTACT INFO. PT AND SAID DC PLAN IS STILL FOR PT TO RETURN HOME. EXPLAINED [facility]PH[facility] THERAPY IS RECOMMENDING HOME HEALTH, PT HAD NO PREFERENCE. EXPLAINED [facility] AND DISCLOSED FINANCIAL STATEMENT; PT WANTED [facility]. PROVIDED [facility] PHONE NUMBER TO . PT NEEDS FRAGMIN DAILY INJECTIONS. DISCUSSED THIS WITH PT AND . PLAN IS FOR PT TO RECEIVE THIS AT DR. ANDINO'S OFFICE SAT-SAT, THEN COME TO [facility] SAT AND SUN. THIS WORKER ESCORTED TO INFUSION ROOM, EXPLAINED THE PROCESS. ALSO SPOKE WITH [employer] RAISER OPERATOR, WHO ANSWERED HER QUESTIONS. THIS WORKER PROVIDED PRESCRIPTION AND FACE SHEET TO SINGLE STAYER OPERATOR ON THE UNIT, EXPLAINED PLAN. PT AND HAD NO FURTHER QUESTIONS/NEEDS. ORDERS FAXED TO [facility]. Addendum: 10/29/16 at 1716 by RENEA GARCIA Amended: Links added.
--- NOTE | 2016-10-29 17:29 | NUR ---
shift status Has been up tp br frequently to br having small amts of pink colored stools Anusol supp given, ivf and iv site pulled dc instructions reviewed with pt, dc per wc with .
--- NOTE | 2016-10-29 21:01 | DSPDOC ---
General Date Date DATE: 10/29/16 TIME: 20:39 Attending Physician Irma Gallo MD Admitting Physician Irma Gallo MD Consulting Physician Marin Hendricks MD,Facs,s Cristhian Ford M.D. Admitting Diagnosis DVT, hematochezia, thrombocytopenia Discharge Diagnosis 1. DVT right popliteal and posterior tibial 2. Hematochezia 3. Constipation 4. Thrombosed external hemorrhoid, internal hemorrhoids 5. 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 Thrombocytopenia 7. History of seizures 8. Tobacco abuse 9. Hyperlipidemia 10. Leukopenia due to chemotherapy 11. Thrush Procedures Anoscopy on 10/28 revealing thrombosed external hemorrhoid and internal hemorrhoids, procedure done at bedside by Dr. Hendricks Laboratory Laboratory Tests Test 10/28/16 22:29 10/29/16 04:32 Glucometer 127mg/dL (75-110) White Blood Count 4.8T/MM3 (4.5-11.0) Red Blood Count 4.37M/MM3 (4.50-5.90) Hemoglobin 13.8GM/DL (13.5-17.5) Hematocrit 40.0% (41-53) Mean Corpuscular Volume 91.5UM3 (80-100) Mean Corpuscular Hemoglobin 31.6UUG (26-34) Mean Corpuscular Hemoglobin Concent 34.5GM/DL (31-37) RDW Standard Deviation 45.1FL (36.9-50.2) Platelet Count 67T/MM3 (130-400) Mean Platelet Volume 11.2UM3 (9.4-12.4) Immature Granulocyte % (Auto) % (0.0-0.5) Neutrophils (%) (Auto) % (33-66) Lymphocytes (%) (Auto) % (23-45) Monocytes (%) (Auto) % (0-9.0) Eosinophils (%) (Auto) % (0-4) Basophils (%) (Auto) % (0-2) Absolute Immature Granulocyte (auto T/MM3 (0.00-0.03) Absolute Neutrophils (auto) T/MM3 (1.8-7.7) Absolute Lymphocytes (auto) T/MM3 (1-4.8) Absolute Monocytes (auto) T/MM3 (0-0.8) Absolute Eosinophils (auto) T/MM3 (0-0.5) Absolute Basophils (auto) T/MM3 (0-0.2) Neutrophils % (Manual) 83.0% (33-66) Band Neutrophils % 12.0% (0-6) Lymphocytes % (Manual) 3.0% (23-45) Monocytes % (Manual) 2.0% (0-9.0) Absolute Neutrophils (Manual) 3.8T/MM3 (1.8-7.7) Band Neutrophils # 0.6T/MM3 Lymphocytes # (Manual) 0.1T/MM3 (1-4.8) Monocytes # (Manual) 0.1T/MM3 (0-0.8) Anisocytosis 1+ Red Cell Morphology Comment Abnormal Prothromb Time International Ratio 1.11 (0.76-1.04) Activated Partial Thromboplast Time 29.5SEC (24-36) Fibrinogen 232MG/DL (175-450) D-Dimer 868NG/ML (0-230) DIC Score 3POINTS (0-4) Turbidity < 20 (0-20) Sodium Level 132MEQ/L (134-144) Potassium Level 3.8MEQ/L (3.6-5) Chloride Level 103MEQ/L (98-107) Carbon Dioxide Level 24MEQ/L (22-30) Anion Gap 5MEQ/L (5-15) Blood Urea Nitrogen 15.0MG/DL (9-20) Creatinine 0.6MG/DL (0.8-1.5) Glomerular Filtration Rate Calc 136 BUN/Creatinine Ratio 25RATIO (6-26) Glucose Level 109MG/DL (75-110) Calculated Osmolality 257MOSM/KG (261-280) Calcium Level 8.1MG/DL (8.4-10.2) Magnesium Level 2.3MG/DL (1.6-2.3) Total Bilirubin 1.50MG/DL (0.20-1.30) Icterus Index < 2 (0-7) Aspartate Amino Transf (AST/SGOT) 20U/L (17-59) Alanine Aminotransferase (ALT/SGPT) 37U/L (21-72) Alkaline Phosphatase 37U/L (38-126) Lactate Dehydrogenase 628U/L (313-618) Total Protein 4.8G/DL (6.3-8.2) Albumin 2.6G/DL (3.5-5.0) Globulin 2.2G/DL (2.4-3.6) Albumin/Globulin Ratio 1.2RATIO (1.1-2.2) Prealbumin 21.9MG/DL (17.6-36.0) Chemistry Specimen Hemolysis 40 (0-25) On admission white count 3.7 with hemoglobin 15.7 and platelet count 53,000, haptoglobin 142 INR on admission 1.16, PTT 26.6, fibrinogen 153, d-dimer 2461, heparin-induced antibody negative On 10/27 bilirubin was 2.0 and was entirely unconjugated, remainder of liver enzymes were unremarkable, LDH 485 Radiology Venous Doppler done on the date of admission revealed nonocclusive DVT in the right popliteal vein extending into the posterior tibial vein of the calf. No DVT was evident on the left. KUB on 10/26 demonstrated nonobstructive, nonspecific bowel gas pattern with moderate stool throughout the colon and increased stool in the rectum. Follow- up KUB on 10/28 was improved. History of Present Illness Patient is a pleasant 66-year-old male who was diagnosed with small cell lung cancer on 09/27/16. Unfortunately, at that time he was found to have metastatic disease to the brain, lymph nodes. He has been undergoing chemotherapy and radiation under the care of Dr Read. He suffered a seizure and was on the ventilator for 2 days at [facility] at the end of September. He was discharged home on October 17, however, since that time has been weak, fatigued with decreased appetite. At that time he was also found to have some bleeding in his stools. His bowels have not moved for 2 weeks. However, his intake has been minimal. Today he had outpatient laboratory studies and was found to have a continued decline in platelet count down to 60. He was also found to have an elevated d- dimer of 3120. Reviewed outpatient laboratory studies today. The [facility] count 5.0, hemoglobin 17.1 , hematocrit 49.7, platelet count 60, neutrophils 94%. Sodium is 135, potassium 3.6, BUN 26, creatinine 0.9. Total bilirubin continues to elevate to 3.0 now. Given these abnormal laboratory findings oncology team contacted the hospitalist services and requested medical admission for further evaluation and treatment. Hospital Course 10/26/16 Admit patient to outpatient observation under the care of Dr. Gallo for abnormal laboratory studies including thrombocytopenia, elevated bilirubin and elevated d-dimer. Patient does have a known history of that is metastatic non- small cell lung cancer. Consultation will be placed to Dr. Ford for further oncology and hematologic evaluation and treatment. In light of recent reported GI bleeding, will obtain stool for occult blood. Will also obtain a KUB with upright x-ray In light of constipation as patient has not had a bowel movement for 2 weeks. Lower extremity edema present prompting venous Doppler which confirmed presence of thrombus in the right popliteal. Treatment options were reviewed with Dr. Ford prior to initiating Lovenox at 50% std dose due to thrombocytopenia. Management risk was discussed with the patient prior to initiation of treatment in light of thrombocytopenia and hematochezia on admission. 10/27 Minor drop in hemoglobin but hemodynamically stable and platelet count stable. White count down somewhat following recent chemotherapy. Patient evaluated by Dr. Hendricks, anoscopy planned for tomorrow to evaluate rectal bleeding-history suggestive of hemorrhoids and or rectal fissures. Bowel regimen initiated with small amounts of stool passed early in the day and increasing amounts later without increased rectal bleeding. 10/28 Day 3 Lovenox, platelet count stable and no increased bleeding reported. Right calf softer than on admission and no pleuritic pain. Hemorrhoids reported by Dr. Hendricks-hydrocortisone suppositories initiated. Rectal symptoms improved after multiple stools and nursing reports suggest less rectal bleeding. Hemoglobin relatively stable, minor fluctuation. KUB improved from admission. Oral intake poor, nutritional supplements discussed and will try Boost Clear and Magic cup as alternatives to standard supplements which patient does not like. ProcalAmine initiated while hospitalized after discussion with Dr. Ford. Increase physical activity-ambulating in halls with nursing. Patient reports whole brain radiation completed, lung radiation ongoing-suspect therapy will be needed tomorrow. White count continues to drop following recent chemotherapy, G-CSF initiated. 10/29- Mr. Sanchez was in good spirits today. He denied dyspnea or abdominal pain. Reports that appetite was a little bit better and that he was only passing a small amount of blood. He had multiple bowel movements in the past 48 hours. Need to continue a bowel regimen was discussed with the patient. Patient was alert and respirations nonlabored. Abdomen is soft and nontender. White count is rebounding and platelet count stable/improved. Minimal drop in hemoglobin. Hit antibody negative; fibrinogen level has normalized. D-dimer remains elevated. Mild hyponatremia noted today in addition to persistent hyperbilirubinemia and recurrent elevation of LDH which was present prior to admission. Discussed with oncology-stable for discharge at this time. Will convert from Lovenox to Fragmin at a dose of 100 units per kilogram (50% standard treatment dose due to thrombocytopenia). Patient will receive shots in the oncology office during the week and at the hospital infusion center on weekends. He reports that he and his are both phobic about needles and neither are interested in learning self administration of injections. Scheduled for follow-up with Dr. Ford in the office at 9 AM tomorrow and will resume radiation therapy tomorrow. >30 minutes spent on patient care and discharge care coordination today on the date of discharge. -- Problems: (1) DVT (deep venous thrombosis) Status: Acute Assessment & Plan: popliteal and tibial on right - 10/26/16. (2) Hematochezia Status: Acute Assessment & Plan: Minor, hemoglobin 17 this morning (3) Non-small cell cancer of right lung Status: Chronic (4) Metastasis Status: Chronic Assessment & Plan: Metastatic disease to the brain-3 lesions recently reported ; XRT initiated/on tapering Decadron (5) Thrombocytopenia Status: Acute Assessment & Plan: Platelet count 60 in the office earlier today, 111 on 10/17 with subsequent decline (6) Leukopenia due to antineoplastic chemotherapy Status: Acute (7) Elevated bilirubin Status: Acute Assessment & Plan: 3.0 on the date of admission; has increased progressively from 1.2 on 10/17 (8) Elevated d-dimer Status: Acute Assessment & Plan: present on admission. (9) Constipation Status: Chronic Assessment & Plan: Last bowel movement 7-10 days or to admission (10) History of seizures Assessment & Plan: Due to brain metastases/vasogenic edema (11) Edema Status: Chronic Assessment & Plan: Right greater than left lower extremity (12) Hyperlipemia Status: Chronic (13) Tobacco dependence Status: Chronic (14) History of alcohol use Status: Chronic (15) Anorexia Status: Acute Assessment & Plan: c/w malignancy (16) Hemorrhoids Status: Acute (17) Thrush, oral Status: Acute Code Status Full Code Home Meds Active Scripts Magnesium Hydroxide (Milk of Magnesia) 400 Mg/5 Ml Oral.susp, 30 ML PO DAILY Y for CONSTIPATION for 30 Days take a dose if no BM in 3 days Prov:IRMA GALLO MD 10/29/16 Sennosides/Docusate Sodium (Senna Plus Tablet) 1 Tab Tablet, 2 TAB PO BID for CONSTIPATION/STOOL SOFTENING for 30 Days, #120 TAB Prov:IRMA GALLO MD 10/29/16 Polyethylene Glycol 3350 (Healthylax) 17 Gm Powd.pack, 34 G PO DAILY for CONSTIPATION for 30 Days Prov:IRMA GALLO MD 10/29/16 Dalteparin Sodium,Porcine (Fragmin) 10,000 Unit/1 Ml Syringe, 9500 UNIT SQ DAILY , #30 Prov:VENKAT VERA APRN 10/29/16 Hydrocortisone Acetate (Anucort-Hc) 25 Mg Supp.rect, 25 MG RECTALLY BID for 10 Days Prov:VENKAT VERA APRN 10/29/16 Dexamethasone (Dexamethasone) 4 Mg Tablet, 2 MG PO HS for 30 Days, #15 TAB Prov:VENKAT VERA APRN 10/29/16 Nystatin (Nystatin) 100,000 Unit/1 Ml Oral.susp, 5 ML PO QID for 10 Days, ML 5 ml swish and swallow four times a day. Prov:VENKAT VERA APRN 10/29/16 Reported Medications Furosemide (Furosemide) 20 Mg Tablet, 1 TAB PO PRN, TAB 10/26/16 Potassium Chloride (Potassium Chloride) 10 Meq Capsule.er, 10 MEQ PO PRN, CAP Take 1 capsule, by mouth, two times a day with meals 10/26/16 Levetiracetam (Keppra) 500 Mg Tablet, 1.5 TAB PO BID, #180 TAB 3 Refills 10/26/16 Prochlorperazine Maleate (Prochlorperazine Maleate) 10 Mg Tablet, 1 TAB PO Q6H, #30 TAB 3 Refills 10/26/16 Ranitidine HCl (Ranitidine HCl) 150 Mg Tablet, 150 MG PO DAILY, TAB 10/26/16 Dexamethasone (Dexamethasone) 4 Mg Tablet, 2 TAB PO BID.., TAB 10/26/16 Atorvastatin Calcium (Lipitor) 20 Mg Tablet, 40 MG PO DAILY, TAB 11/12/13 Discontinued Reported Medications Dexamethasone (Dexamethasone) 4 Mg Tablet, 1 TAB PO HS, TAB 10/26/16 Aspirin (Aspirin) 81 Mg Tablet, 81 MG PO DAILY, TAB 11/16/13 Fenofibrate,Micronized (Fenofibrate) 160 Mg Tablet, 160 MG PO DAILY, TAB 11/16/13 Meloxicam (Mobic) 15 Mg Tablet, 15 MG PO DAILY, TAB 11/12/13 Ibuprofen (Ibuprofen) 200 Mg Capsule, 200 MG PO PRN, CAP 11/12/13 Multivitamins (Multivitamin) 1 Tab Tablet, 1 TAB PO DAILY, TAB 11/12/13 Iron (Iron) 18 Mg Tablet, 18 MG PO DAILY, TAB 11/12/13 Discontinued Scripts Meloxicam (Mobic) 15 Mg Tablet, 15 MG PO DAILY, #30 TAB Prov:KRISTINA CHINCHILLA 11/18/13 Oxycodone Hcl (Oxycodone Hcl) 10 Mg Tab.sr.12h, 10 MG PO Q12H for PAIN, #28 TAB Prov:KRISTINA CHINCHILLA 11/18/13 Oxycodone Hcl (Oxycodone Hcl) 5 Mg Tablet, 5-15 MG PO Q3H Y for PAIN, #60 TAB TAKE 1-3 TABS Prov:KRISTINA CHINCHILLA 11/18/13 Aspirin EC (Aspirin Ec) 325 Mg Tablet.dr, 325 MG PO BID, #84 TAB Take one tablet by mouth twice a day for 6 weeks. Prov:KRISTINA CHINCHILLA 11/18/13 Face to Face Encounter I met with patient on the day of dismissal and discussed follow up appointments , medications, and safety plan. Discharge Disposition Home Copies To 1: THIERRY MELO II, MD; MARIN HENDRICKS MD, FACS, CWS; CRISTHIAN FORD Documentation Requirements BMI Low or High Assoc. dx for low or high BMI: Overweight 25-29.9 IRMA GALLO MD Oct 29, 2016 20:45
== END 2016-10-29 15:40 | disposition home health service (06) | DRG 300 ==
LOC: MED 15:46 → OBSVTOIN 21:13
PROVIDERS: ADMIT Hospitalist; ATTEND Internal Medicine
DX: I82.431 Acute embolism and thrombosis of right popliteal vein (principal); C34.91 Malignant neoplasm of unspecified part of right bronchus or lung; C79.31 Secondary malignant neoplasm of brain; K62.5 Hemorrhage of anus and rectum; B37.0 Candidal stomatitis; K59.00 Constipation, unspecified; K64.9 Unspecified hemorrhoids; D70.9 Neutropenia, unspecified; D69.6 Thrombocytopenia, unspecified; E80.6 Other disorders of bilirubin metabolism; E78.5 Hyperlipidemia, unspecified; F17.200 Nicotine dependence, unspecified, uncomplicated; Z79.82 Long term (current) use of aspirin
CPT/HCPCS: 36415; 80048; 80053; 82248; 82272; 82948; 83010; 83615; 83735; 84134; 85025; 85027; 85379; 85384; 85610; 85730; 86022; 96372

== ENCOUNTER → 2016-10-31 | Outpatient (CLI) | payer BC ==
[~2016-10-31] MED LIST changes: -ASPI-611 PO; -ASPI-728 PO; +DEXA4TAB PO; -FENO160T9 PO; +FURO20TA4 PO; +HYDR25SU11 RECTALLY; -IBUP200C42 PO; -IRON18TA PO; +LEVE500T9 PO; +MAGN400O4 PO; -MELO-32 PO; -MULT-806 PO; +NYST5ORA7 PO; -OXYC10TA PO; -OXYC5TAB PO; +POLY17PO18 PO; +POTA10CA37 PO; +PROC10TA PO; +RANI150T7 PO; +SENN-152 PO; +[UNRECOGNIZED DRUG - CODE] SQ
[2016-10-31 11:36] LABS: HCT - HEMATOCRIT 43.5 % (41-53); HGB - HEMOGLOBIN 15.2 GM/DL (13.5-17.5); MEAN CORPUSCULAR HGB 31.9 UUG (26-34); MEAN CORPUSCULAR HGB CONC(MCHC 34.9 GM/DL (31-37); MEAN CORPUSCULAR VOLUME 91.2 UM3 (80-100); MEAN PLATELET VOLUME 10.5 UM3 (9.4-12.4); RED BLOOD COUNT 4.77 M/MM3 (4.50-5.90); WBC - WHITE BLOOD COUNT 6.3 T/MM3 (4.5-11.0)
[2016-10-31 11:59] LABS: BAND NEUTROPHILS # 1.1 T/MM3; LYMPHOCYTES # (MANUAL) 0.2 T/MM3 (1-4.8); METAMYELOCYTES # 0.1 T/MM3; MONOCYTES # (MANUAL) 0.3 T/MM3 (0-0.8); NEUTROPHILS #(MANUAL)-ABSOLUTE 4.6 T/MM3 (1.8-7.7); REACTIVE LYMPHOCYTES # 0.1 T/MM3 (0-0); TOTAL CELLS COUNTED 100 %
== END ==
LOC: LABN 11:26
PROVIDERS: ATTEND Internal Medicine Medical Oncology
DX: C34.11 Malignant neoplasm of upper lobe, right bronchus or lung (principal)
CPT/HCPCS: 85025

== ENCOUNTER 2017-01-30 13:19 | Inpatient (IN) ==
[2017-01-30] MEDS ORDERED: ONDANSETRON 4 MG/2 ML INJECTION IVP PRN (14:48)
--- NOTE | 2017-01-30 15:01 | History & Physical Report ---
<Radha Trevizo Magdy - Last Filed: 01/30/17 15:47> History of Present Illness Date: 01/30/17 Chief complaint: weakness and diarrhea HPI: Navjot Nash is a 67 y/o male with a hx of metastatic non-small cell lung cancer. He was recently diagnosed with metastatic disease to the liver and chemo was restarted (per Dr. Gallardo). He presented to the office on 01/30/17 for routine follow up, and was extremely weak. He was unable to walk in like usual and needed a wheelchair. He has had diarrhea for the last couple of days. Last Neulasta was approx 1 week ago. Labs were done - he was pancytopeic with WBC of 0.7, hgb 11.3, platelets 101. CMP showed hypokalemia (K 3.2), elevated ALT. CXR was reported as negative. He was hemodynamically stable and afebrile. Dr. Gallardo contacted the hospitalist service and the patient was placed into inpatient status for further evaluation and treatment of his neutropenic state, suspected infection in this immunocompromised host, and IV hydration. LOS is expected to exceed 2 overnights. The patient was seen in his room on the medical unit. He was in no acute distress, but appeared weak. His body was either flushed or very tanned. He was vague on his history and wasn't able to verify home medications. He reported that his diarrhea started 1-2 days ago. He's had several episodes of non-bloody , non-watery diarrhea, but wasn't able to quantify. He states he's been extremely weak, and fell causing a skin tear to his right forearm. He denies striking his head; denies syncope or dizziness or lightheadedness. He admits to having a poor appetite with weight loss, but this is not new. He denies abdominal pain, nausea, or vomiting. He initially denied a cough, but then started coughing, and stated that was new. No SOA, fever, chills, sweats, or sinus drainage. He denies any headaches, joint pain, or myalgias. He has had easy bruising/bleeding since he has been on Fragmin for DVT (dx in October 2016). No chest pain or palpitations. He denies visual changes or paresthesias. Review of Systems All systems: reviewed and no additional remarkable complaints except as stated - Constitutional Constitutional: Present: anorexia, lethargy, weight loss - EENMT Eyes: Present: requires corrective lenses - Respiratory Respiratory: Present: cough - Gastrointestinal Gastrointestinal: Present: diarrhea - Musculoskeletal Musculoskeletal: Present: muscle weakness - Integumentary/Breasts Integumentary: Present: wounds (skin tear) - Neurological Neurological: Present: frequent falls - Hematologic/Lymphatic Hematologic/Lymphatic: Present: easy bleeding, easy bruising [facility] Stage IV non-small cell Lung Cancer with metastases to brain and lymph nodes; hx of brain radiation Hyperlipidemia Seizures Nonocclusive DVT in right popliteal vein 10/26/16 Chronic tobacco dependence History of alcohol use Surgical History: Carpal tunnel release. Tonsillectomy. Right thumb surgery. Colonoscopy-2002. Lumbar spine surgery-2013. Left total hip replacement - 2013 Dr. Newsome. Port-a-cath. lymph node biopsy 09/27/16 Family History: Father had a stroke Mother had dementia No family history of cancer - Social History Smoking status: Current every day smoker Substance use type: does not use Alcohol intake frequency: does not drink Social history: PCP - Dr. Sousa Medications Home Medications Medication Instructions Recorded Confirmed Type raNITIdine HCl [Ranitidine HCl] 150 mg PO DAILY #0 tab 10/26/16 01/30/17 History Sennosides/Docusate Sodium [Sm 2 tab PO BID PRN 01/23/17 01/30/17 History Senna-S Tablet] Dexamethasone [Dexamethasone] 1 tab PO AM 01/30/17 01/30/17 History Levetiracetam [Keppra] 3 tab PO BID 01/30/17 01/30/17 History Allergies Allergy/AdvReac Type Severity Reaction Status Date / Time No Known Allergies Allergy Verified 01/30/17 13:58 Exam Vital Signs: Temp Pulse Resp BP Pulse Ox 97.3 F 92 16 107/66 97 01/30/17 13:48 01/30/17 13:48 01/30/17 13:48 01/30/17 13:48 01/30/17 13:48 Height: 1.8 m Weight: 83 kg Body Mass Index: 25.4 - Constitutional Present: no acute distress - Routine HEENT Exam Eye: Absent: conjunctival icterus, scleral injection ENT: Present: mucous membranes dry. Absent: oropharynx clear (thrush) - Routine Neck Exam Present: supple. Absent: tenderness - Routine Respiratory Exam Present: decreased breath sounds, CTA bilaterally Comments: port to right chest - Routine Cardiovascular Exam Present: RRR, S1, S2 - Routine Abdominal Exam Present: soft, normoactive bowel sounds, non distended, non tender - Routine Extremities Exam Present: edema, pulses intact Comments: dressing to rt forearm - Routine Skin Exam Present: intact, dry, warm - Routine Neurological Exam Present: alert, oriented X3 - Routine Psychiatric Exam Present: normal affect Assessment and Plan (1) SIRS (systemic inflammatory response syndrome) Problem details: leukopenia; bandemia; HR 92 Current visit: Yes Status: Acute (2) Diarrhea Current visit: Yes Status: Acute (3) Hypokalemia Current visit: Yes Status: Acute (4) Neutropenia Current visit: Yes Status: Acute (5) Non-small cell carcinoma of lung, stage 4 Current visit: Yes Status: Acute (6) DVT (deep venous thrombosis) Problem details: Nonocclusive DVT in right popliteal vein 10/26/16 Current visit: Yes Status: Acute (7) Weakness Current visit: Yes Status: Acute DVT Prophylaxis: SCD's, other (fragmin) Resuscitation Status: Full Code Assessment and Plan: Admit to inpatient status under the hospitalist service. Diarrhea, weakness, recent fall. -Check GI panel -Septic workup ordered including lactate, procalcitonin, blood cultures, sputum culture, and urinalysis -Consult PT and OT SIRS - leukopenia, bandemia, and heart rate of 92 -CXR negative for pneumonia -follow results of sepsis workup -consider prophylactic antibiotics given immunocompromised status. Metastatic non-small cell lung cancer with Neutropenia, pancytopenia -Neutropenic precautions -Neulasta injection approximately 1 week ago -Consult Dr. Gallardo Hypokalemia and dehydration secondary to GI losses -Start normal saline with potassium at 125 mL per hour. -Check magnesium level Thrush -start Nystatin QID Tobacco dependence -patient is trying to quit -Nicotine patch PRN DVT, diagnosed October 26 2016 -continue Fragmin (dose needs verification) Advanced care directives - is DPOA -Full code Note: patient was unable to confirm home medications on admission so there was a delay in reconciliation at time of this H&P. Discussed with Dr. Gallo. Sepsis Assessment - Evaluation Sepsis screening result: No Definite Risk - Focused Exam Vital Signs Temp Pulse Resp BP Pulse Ox 01/30/17 13:48 97.3 F 92 16 107/66 97 Hospital Course Summary Disclaimer: The visit summary below is not to be considered part of the above Progress Note. Hospital Course: 01/30/17 16:06 Admit to inpatient status under the hospitalist service. Diarrhea, weakness, recent fall. -Check GI panel -Septic workup ordered including lactate, procalcitonin, blood cultures, sputum culture, and urinalysis -Consult PT and OT SIRS - leukopenia, bandemia, and heart rate of 92 -CXR negative for pneumonia -follow results of sepsis workup -consider prophylactic antibiotics given immunocompromised status. Metastatic non-small cell lung cancer with Neutropenia, pancytopenia -Neutropenic precautions -Neulasta injection approximately 1 week ago -Consult Dr. Gallardo Hypokalemia and dehydration secondary to GI losses -Start normal saline with potassium at 125 mL per hour. -Check magnesium level Thrush -start Nystatin QID Tobacco dependence -patient is trying to quit -Nicotine patch PRN DVT, diagnosed October 26 2016 -continue Fragmin (dose needs verification) Advanced care directives - is DPOA -Full code <Irma Gallo - Last Filed: 01/30/17 19:55> History of Present Illness Date: 01/30/17 [facility] Patient Stated Medical History Seizures Yes Hypotension Yes: varies back and forth Sleep Apnea No Clotting Problems Yes: takes meds Chemotherapy Yes Exam Vital Signs: Temp Pulse Resp BP Pulse Ox 97.0 F 95 16 112/72 98 01/30/17 16:29 01/30/17 16:29 01/30/17 16:29 01/30/17 16:29 01/30/17 16:29 Height: 1.8 m Weight: 83 kg Assessment and Plan (1) SIRS (systemic inflammatory response syndrome) Problem details: leukopenia; bandemia; HR 92 Current visit: Yes Status: Acute (2) Diarrhea Current visit: Yes Status: Acute (3) Hypokalemia Current visit: Yes Status: Acute (4) Neutropenia Current visit: Yes Status: Acute (5) DVT (deep venous thrombosis) Problem details: Nonocclusive DVT in right popliteal vein 10/26/16 Current visit: Yes Status: Acute (6) Non-small cell carcinoma of lung, stage 4 Current visit: Yes Status: Acute (7) Weakness Current visit: Yes Status: Acute (8) Falls Current visit: Yes Status: Acute (9) Thrush Current visit: Yes Status: Acute Assessment and Plan: I have independently evaluated and examined this patient. I reviewed the chart, the patient's history, and the [employer]'s documented findings as above. We discussed and formulated the assessment and plan as above with additions as below: Mr. Layne was seen with his at the bedside. She provided majority of history. He has developed progressive weakness over the past 3-4 days in conjunction with profound diarrhea overnight although diarrhea has been present a couple of days. They deny melena or bloody diarrhea. He's become progressively weaker requiring IV fluids as noted and had several falls overnight. Patient denies fevers. Port-A-Cath was placed approximately 3 days ago. On examination the patient is fatigued and only responds occasionally deferring most history to his . Thrush present on tongue, neck supple, conjunctiva clear. Diminished breath sounds but no focal pulmonary findings. PAC site without inflammation, neck insertion site clean and dry. Cardiac rhythm is regular with normal S1 and S2. Murmur not appreciated. +3 edema right lower extremity, +1/2 left lower extremity Chest x-ray reviewed by myself-unremarkable, outpatient laboratory data reviewed -profound neutropenia, ALT minimally elevated at 79. Magnesium unremarkable. Lactic acid 1.1-1.6; procalcitonin 0.21 Urinalysis unremarkable. Problems as outlined above. Discussed with Dr. Gallardo. Empiric antibiotics initiated with cefepime and vancomycin-pharmacy will dose. Discussed with pharmacy. Nystatin suspension initiated, prophylactic dose acyclovir initiated due to neutropenia. CT scan on 01/15 demonstrated decrease in right upper lobe pulmonary nodule and paratracheal mass, severe emphysema, and new multifocal lesions in the liver with approximately 20 lesions present. Not present on prior CT or PET scan in September and October this year respectively Continue Fragmin. Sepsis Assessment - Focused Exam Vital Signs Temp Pulse Resp BP Pulse Ox 01/30/17 16:29 97.0 F 95 16 112/72 98 01/30/17 13:48 97.3 F 92 16 107/66 97 Hospital Course Summary Disclaimer: The visit summary below is not to be considered part of the above Progress Note.
[2017-01-30] MEDS: NS with KCL 20 mEq 1,000 ML IV SCH (15:17)
[2017-01-30] MEDS: SALINE FLUSH 10ml SYRINGE IVF PRN ×2 (15:18→23:52)
[2017-01-30] MEDS: NYSTATIN 500,000 units/5 ml ORAL LIQUID PO SCH ×2 (16:50→21:07)
[2017-01-30] MEDS: CEFEPIME 1 GM in NS 100 ML IV SCH ×2 (18:34→23:53)
[2017-01-30] MEDS: ACYCLOVIR 200 MG CAPSULE PO SCH (21:06)
[2017-01-30] MEDS: LEVETIRACETAM 250 MG TABLET PO SCH (21:07)
[2017-01-31] MEDS: SALINE FLUSH 10ml SYRINGE IVF PRN (01:27)
[2017-01-31] MEDS: NS with KCL 20 mEq 1,000 ML IV SCH ×3 (04:57→20:43)
[2017-01-31] MEDS: CEFEPIME 1 GM in NS 100 ML IV SCH ×4 (05:41→20:41)
--- NOTE | 2017-01-31 07:23 | Consultation ---
CHIEF COMPLAINT Fatigue and being unsteady. 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 The disease in the chest was locally advanced with impending superior vena cava syndrome. He received radiation therapy to the brain along with weekly chemotherapy, Taxol and carboplatin, and radiation to the chest. Six weeks after the end of the concurrent radiation and chemotherapy with weekly Taxol and carboplatin, his CT scan on January 09, 2017 showed interval development of liver metastasis. He was started on chemotherapy docetaxel on January 24, 2017. He received Neulasta. The cancer was EGFR, ALK, ROS-1 and PD-L1 negative. The patient presented with generalized weakness, brought in by his in a wheelchair. He had diarrhea since last night. He has shortness of breath. He has productive cough of whitish sputum. He denied fever. His white count is 0.7. Chest x-ray showed no pneumonia. REVIEW OF SYSTEMS GENERAL: He is very weak. Denies fever. RESPIRATORY: Shortness of breath during exertion. Productive cough of whitish sputum. No hemoptysis. CARDIOVASCULAR: No chest pain. GI: Appetite reduced. He has diarrhea since last night. EMPLOYMENT PROGRAMS ANALYST: History of seizure. He fell a couple of times at home. He is unsteady. PAST MEDICAL HISTORY 1. History of smoking. 2. Seizure - on Keppra. MEDICATIONS 1. Chantix. 2. Compazine p.r.n. 3. Keppra 750 mg b.i.d. 4. Zantac p.r.n. 5. Fragmin 12,5000 IU subcutaneous daily. 6. Senokot p.r.n. PHYSICAL EXAM GENERAL: In a wheelchair. Looks ill. Dehydrated. LUNGS: Clear to auscultation. No wheezing. No crackles. CARDIOVASCULAR: Normal sinus rhythm. No murmur. No JVD. ABDOMEN: Benign. No organomegaly. No masses. EXTREMITIES: +1 edema. EMPLOYMENT PROGRAMS ANALYST: Unsteady gait. No focal neurological deficits. He has nystagmus. SKIN: Dry, consistent with dehydration. LAB CBC: White count 0.7 with ANC 0.2, hemoglobin 11.3, platelets 101,000. Creatinine 0.5. ASSESSMENT 1. Metastatic non-small cell lung cancer, adenocarcinoma type, EGFR, ALK, ROS- 1 and PD-L1 negative, status post whole brain radiation and concurrent radiation and chemotherapy to the chest disease using weekly Taxol and carboplatin. 2. Interval development of liver metastasis six weeks after the completion of the Taxol, carboplatin and radiation. He was started on second-line chemotherapy using docetaxel. First cycle given on January 24, 2017 followed by Rosanne. 3. Severe chemotherapy-induced neutropenia without fever. 4. Diarrhea with dehydration. 5. History of venous thromboembolism, on Fragmin. RECOMMENDATION AND PLAN 1. Continue supportive care with IV fluids. May benefit from broad-spectrum antibiotics with blood cultures and urinalysis with culture. 2. Stool for C. diff. 3. Reevaluation for further chemotherapy. Will discuss with the patient and his later. MTDD
[2017-01-31] MEDS: DEXAMETHASONE 1 MG TABLET PO SCH (08:20)
[2017-01-31] MEDS: ACYCLOVIR 200 MG CAPSULE PO SCH ×2 (08:20→20:40)
[2017-01-31] MEDS: NYSTATIN 500,000 units/5 ml ORAL LIQUID PO SCH ×4 (08:20→20:40)
[2017-01-31] MEDS: LEVETIRACETAM 250 MG TABLET PO SCH ×2 (08:20→20:40)
[2017-01-31] MEDS: [UNRECOGNIZED DRUG - OTHER] SQ SCH (08:20)
[2017-01-31] MEDS: RANITIDINE 150 MG TABLET PO SCH (08:20)
[2017-01-31] MEDS: NICOTINE PATCH REMOVAL TD SCH (10:05)
[2017-01-31] MEDS ORDERED: ChlorproMAZINE INJ 25 MG in NS 50 ML IV PRN (11:04)
--- NOTE | 2017-01-31 11:12 | Pharmacy Consult-Antibiotics ---
Pharmacy Consult-Vancomycin - Laboratory Information WBC 3.2 T/MM3 (4.5-11.0) L D 01/31/17 08:23 BUN 9.0 MG/DL (9-20) 01/31/17 08:23 Creatinine 0.5 MG/DL (0.8-1.5) L 01/31/17 08:23 Procalcitonin 0.21 NG/ML 01/30/17 15:22 Vancomycin Trough 17.13 UG/ML (15-20) 01/31/17 08:23 Renal fx continues stable. Calculated CrCl = 82ml/min Vancomycin trough levels within target range. Will continue present regimen of VANCOMYCIN 2gm IV q8hrs. Thank you
--- NOTE | 2017-01-31 11:12 | Pharmacy Consult-Antibiotics ---
Pharmacy Consult-Vancomycin - Laboratory Information VANCOMYCIN CONSULT: 67yo M admitted with neutropenia secondary to lung CA (Stage IV) with mets to liver, etc. Port-A-Cath was placed 3 days ago. Cultures pending. Covering with Cefepime + Vancomycin Procalcitonin 0.21 NG/ML 01/30/17 15:22 Labs from office today are: SCr = 0.5mg/dl, Calculated CrCl > 100ml/min, Lactate = 1.1, WBC = 7000 Will start VANCOMYCIN at 2gm IV now, then 2gm IV q8hrs. Will check Vanco trough tomorrow morning and adjust regimen as needed to maintain target trough level of 15-20mcg/ml Thank you.
--- NOTE | 2017-01-31 13:55 | Progress Note ---
Subjective: Navjot reports he feels somewhat better. He denied dyspnea, fevers, lightheadedness, or diarrhea today. He denied having any pain in his had no nausea or vomiting overnight. He slept well and his appetite was a little better today. He was able to ambulate to and from the bathroom with assistance. Hiccups also improved overnight. Nursing notes at least one liquid stool overnight Objective Vital signs: Temp Pulse Resp BP Pulse Ox 98.5 F 87 18 103/67 95 01/31/17 12:07 01/31/17 12:07 01/31/17 12:07 01/31/17 12:07 01/31/17 12:07 I/O 2425/730 Weight up 1 kg EXAM General-NAD, much more alert/interactive than yesterday, soft spoken; on room air HEENT-conjunctiva clear, EOMI, partial clearing of thrush although residual plaque primarily on the left side of the tongue Lungs-respirations nonlabored with good airflow breath sounds clear upper anterior jarrell and throughout the posterior jarrell Cardiac-regular rhythm, S1-S2 Abd-soft, nontender, bowel sounds present although diminished Ext-3+ edema RLE, 1+ LLE Skin-mild generalized erythema upper body, Port-A-Cath site and incision at the base of the right neck both clean and dry Neuro-moving extremities well/spontaneously, repositions himself in bed with minimal difficulty Psych-slightly withdrawn but cooperative and calm - Weight: 84 kg Results - Labs CBC & Chem 7: 01/31/17 08:23 01/31/17 08:23 Labs: Segs 56, bands 13, lymphocytes 16, monocytes 11, metamyelocytes 2, myelocytes 2 Liver enzymes within normal limits, LDH 584 Lactic acid 1.1-1.6, procalcitonin 0.21 Urinalysis trace ketones, negative nitrate, 1-3 WBC Stool panel negative Assessment and Plan (1) SIRS (systemic inflammatory response syndrome) Problem details: leukopenia; bandemia; HR 92 Current visit: Yes Status: Acute (2) Diarrhea Current visit: Yes Status: Acute (3) Hypokalemia Current visit: Yes Status: Acute (4) Neutropenia Current visit: Yes Status: Acute (5) DVT (deep venous thrombosis) Problem details: Nonocclusive DVT in right popliteal vein 10/26/16 Current visit: Yes Status: Acute (6) Non-small cell carcinoma of lung, stage 4 Current visit: Yes Status: Acute (7) Weakness Current visit: Yes Status: Acute (8) Falls Current visit: Yes Status: Acute (9) Thrush Current visit: Yes Status: Acute Assessment and Plan: Mr. Nash is clinically improved today and has had resolution of neutropenia with current ANC of 2.2K. He remains afebrile. Potassium is correcting and diarrhea subsiding by patient report. Blood cultures are negative thus far although less than 24 hour incubation. Continue IV antibiotics overnight-if clinically stable and blood cultures negative will discontinue antibiotics. Continue fluids/potassium supplementation. PT evaluation initiated for strengthening-reported to be unsteady/unsafe returning. Thorazine ordered if needed for hiccups. Discussed with Dr. Ford and nursing. Sepsis Assessment - Evaluation Sepsis screening result: No Definite Risk - Focused Exam Vital Signs Temp Pulse Resp BP Pulse Ox 01/31/17 12:07 98.5 F 87 18 103/67 95 01/31/17 07:58 98.6 F 89 16 98/62 94 01/31/17 07:42 89 01/31/17 05:00 96/62 Respiratory exam: Present: decreased breath sounds, CTA bilaterally Cardiovascular exam: Present: RRR, S1, S2 Hospital Course Summary Disclaimer: The visit summary below is not to be considered part of the above Progress Note. Hospital Course: 01/30/17 16:06 Admit to inpatient status under the hospitalist service. Diarrhea, weakness, recent fall. -Check GI panel -Septic workup ordered including lactate, procalcitonin, blood cultures, sputum culture, and urinalysis -Consult PT and OT SIRS - leukopenia, bandemia, and heart rate of 92 -CXR negative for pneumonia -follow results of sepsis workup -consider prophylactic antibiotics given immunocompromised status. Metastatic non-small cell lung cancer with Neutropenia, pancytopenia -Neutropenic precautions -Neulasta injection approximately 1 week ago -Empiric Antibiotic coverage -Consult Dr. Gallardo Hypokalemia and dehydration secondary to GI losses-Start normal saline with potassium at 125 mL per hour. Thrush-start Nystatin QID Tobacco dependence-patient is trying to quit,Nicotine patch PRN DVT, diagnosed October 26 2016-continue Fragmin (dose needs verification) Advanced care directives- is DPOA; Full code 01/31/17 14:52 Mr. Nash is clinically improved today and has had resolution of neutropenia with current ANC of 2.2K. He remains afebrile. Potassium is correcting and diarrhea subsiding by patient report. Blood cultures are negative thus far although less than 24 hour incubation. Continue IV antibiotics overnight-if clinically stable and blood cultures negative will discontinue antibiotics. Continue fluids/potassium supplementation. PT evaluation initiated for strengthening-reported to be unsteady/unsafe returning. Thorazine ordered if needed for hiccups. Discussed with Dr. Ford and nursing.
[2017-01-31] MEDS: NICOTINE 21 MG PATCH TD PRN (14:49)
--- NOTE | 2017-01-31 16:26 | Wound Care Progress Note ---
Wound Management - Patient Status Premedicated Prior to Dressing Change: No - Wound Right Lower Anterior Arm Wound Type: Skin Tear Carmen Wound Appearance: Dark Red, Purple (Pt has a small skin tear to his anterior arm, instructed RN to clean and place tona wet with NS to open area and cover with Meplix and leave drsg for 7 days.) Microbiology: Microbiology 01/30/17 15:23 Peripheral/Iv Start Blood Culture - Preliminary No Growth After 1 Day 01/30/17 15:19 Cath/Port/Line/Picc Blood Culture - Preliminary No Growth After 1 Day 01/30/17 21:35 Sputum, Expectorated Gram Stain - Final 01/30/17 21:35 Sputum, Expectorated Sputum Culture - Final
--- NOTE | 2017-01-31 16:58 | Progress Note ---
Oncology Subjective Patient is feeling better. He has last diarrhea was not before last. He is not having any fever or chills. He does have cough. Review of systems: Gen.: Negative for fever or chills, positive malaise Eyes: Negative eye discharge, eye pain ENT: Negative for nosebleeds, mouth sores Lymph: Negative enlarged lymph nodes, no night sweats Respiratory: Positive for cough, negative shortness of breath, hemoptysis, Cardiac: Negative for chest pain, palpitations, slight swelling GI: Negative for nausea, negative for vomiting, negative for diarrhea for last 24 hours Genitourinary: No urgency, no dysuria, no hematuria Musculoskeletal: Positive for weakness, no joint pain Neurologic: Negative for headache, negative for focal weakness, negative for numbness Exam Vital signs: Temp Pulse Resp BP Pulse Ox 98.3 F 86 18 99/69 95 01/31/17 16:28 01/31/17 16:28 01/31/17 16:28 01/31/17 16:28 01/31/17 16:28 - Constitutional no acute distress, thin - Routine HEENT Exam Comments: Alopecia, pupils equal round reactive to light, anicteric sclera, moist mucous membranes - Routine Neck Exam Present: supple. Absent: lymphadenopathy - Routine Chest/Breast/Axilla Exam Axillae: Absent: lymphadenopathy - Routine Respiratory Exam Present: decreased breath sounds. Absent: rales, respiratory distress - Routine Cardiovascular Exam Present: RRR. Absent: murmur - Routine Abdominal Exam Present: soft, non tender. Absent: distended, organomegaly, mass - Routine Extremities Exam Present: edema (trace to 1+). Absent: cyanosis, clubbing - Routine Back/Spine/Pelvis Exam Back/Spine: Present: full ROM. Absent: muscle spasm - Routine Skin Exam Present: dry, warm - Routine Neurological Exam Present: CN II-XII intact - Routine Psychiatric Exam Present: normal affect Oncology Results - Labs CBC & Chem 7: 01/31/17 08:23 01/31/17 08:23 Labs: Short CBC 01/31/17 Range/Units 08:23 WBC 3.2 L D (4.5-11.0) T/MM3 Hgb 9.9 L D (13.5-17.5) GM/DL Hct 30.4 L D (41-53) % Plt Count 96 L (130-400) T/MM3 BMP 01/31/17 08:23 Sodium 138 Potassium 3.5 L Chloride 108 H Carbon Dioxide 24 BUN 9.0 Creatinine 0.5 L Glucose 79 Calcium 8.5 Liver Function 01/31/17 Range/Units 08:23 Total Bilirubin 0.50 (0.20-1.30) MG/DL AST 23 (17-59) U/L ALT 56 (21-72) U/L Alkaline Phosphatase 60 (38-126) U/L Albumin 2.7 L (3.5-5.0) G/DL - Impressions WBC has improved from 0.7-3.2. ANC today is 1.8. Cultures are negative so far Progress Note-A&P (1) Diarrhea Status: Acute Assessment and plan: Diarrhea is currently improved. Question etiology. Will continue fluid support and follow-up. Current Visit: Yes (2) Neutropenia Status: Acute Assessment and plan: WBC on 01/30/17 was 0.7. It is improved to 3.2 with ANC of 1.8 on 01/31/17. He is currently on antibiotics. No fever. This is probably improvement secondary to the G-CSF. We'll continue to follow. Current Visit: Yes (3) Non-small cell carcinoma of lung, stage 4 Status: Acute Assessment and plan: Non-small cell lung cancer with brain metastasis status post brain radiation, chest irradiation then recurrence within the liver with liver metastasis 6 weeks after completing chemoradiation. He is currently on Taxotere second line, EGFR, ALK, ROS-1 and PD-L1 negative, 2. Interval development of liver metastasis six weeks after the completion of the Taxol, carboplatin and radiation. He was started on second-line chemotherapy using docetaxel. First cycle given on January 24, 2017 followed by Rosanne. 3. Severe chemotherapy-induced neutropenia without fever. 4. Diarrhea with dehydration. 5. History of venous thromboembolism, on Fragmin. Recommendations: Supportive care Antibiotics Continue Fragmin Possibly home tomorrow if counts continue to improve Current Visit: Yes - Time Spent With Patient Total time spent is greater than 50% in coordination of care (as documented) at patient's floor/unit and/or counseling patient: 25 - 35 minutes Sepsis Assessment - Evaluation Sepsis screening result: No Definite Risk - Focused Exam Vital Signs Temp Pulse Resp BP Pulse Ox 01/31/17 16:28 98.3 F 86 18 99/69 95 06/15/17 12:07 98.5 F 87 18 103/67 95 01/31/17 07:58 98.6 F 89 16 98/62 94 01/31/17 07:42 89 01/31/17 05:00 96/62 Respiratory exam: Present: decreased breath sounds, CTA bilaterally Cardiovascular exam: Present: RRR, S1, S2
[2017-02-01] MEDS ORDERED: Pharmacy Consult for Fall Risk XX PRN (00:12)
[2017-02-01] MEDS: CEFEPIME 1 GM in NS 100 ML IV SCH ×2 (04:06→08:54)
[2017-02-01] MEDS: SALINE FLUSH 10ml SYRINGE IVF PRN (07:58)
[2017-02-01] MEDS: NS with KCL 20 mEq 1,000 ML IV SCH ×4 (07:59→19:15)
[2017-02-01] MEDS: NYSTATIN 500,000 units/5 ml ORAL LIQUID PO SCH ×4 (08:54→22:00)
[2017-02-01] MEDS: NICOTINE 21 MG PATCH TD PRN (08:54)
[2017-02-01] MEDS: DEXAMETHASONE 1 MG TABLET PO SCH (08:55)
[2017-02-01] MEDS: LEVETIRACETAM 250 MG TABLET PO SCH ×2 (08:55→22:00)
[2017-02-01] MEDS: ACYCLOVIR 200 MG CAPSULE PO SCH ×2 (08:55→22:00)
[2017-02-01] MEDS: NICOTINE PATCH REMOVAL TD SCH (08:55)
[2017-02-01] MEDS: RANITIDINE 150 MG TABLET PO SCH (08:55)
[2017-02-01] MEDS: [UNRECOGNIZED DRUG - OTHER] SQ SCH (08:56)
--- NOTE | 2017-02-01 11:04 | Progress Note ---
Oncology Subjective Patient feels weak No Fever. Decreased appetite. Review of Systems Constitutional: No weight gain, positive weight loss, no fever, no appetite, positive fatigue/tiredness. ENT/Mouth: No vision changes, no difficulty swallowing. Positive for mouth sores/pain, burning, no nasal drainage, no nasal bleeding. Cardiovascular: No palpitations, no chest pain, no swelling. Respiratory. Positive for cough, no shortness of breath, no coughing up blood, no wheezing. Gastrointestinal: No abdominal pain, no blood in stool, no constipation, no diarrhea, no heartburn, no nausea, no vomiting. Genitourinary: No urinary difficulty Musculoskeletal: No pain, no lymphedema, positive weakness weakness. Skin: No skin rash or sores. Neurological: No confusion, no dizziness, no falls, no headaches, no numbness, no seizures, no tingling. Psychiatric: No anxiety, no depression, no mood changes, no sleep difficulty. Endocrine: No hot flashes. Hematologic: No bleeding, no bruising. Lymphatic: No enlarged lymph nodes. Exam Vital signs: Temp Pulse Resp BP Pulse Ox 99 F 87 18 109/66 92 02/01/17 07:38 02/01/17 07:38 02/01/17 07:38 02/01/17 07:38 02/01/17 07:38 - Constitutional no acute distress, thin - Routine HEENT Exam Head: Present: normocephalic Eye: Present: PERRL ENT: Present: mucous membranes moist Comments: Redness of tongue - Routine Neck Exam Present: supple. Absent: lymphadenopathy - Routine Respiratory Exam Present: CTA bilaterally. Absent: accessory muscle use, wheezes - Routine Cardiovascular Exam Present: RRR. Absent: murmur - Routine Abdominal Exam Present: soft, non distended, non tender. Absent: tenderness - Routine Extremities Exam Present: edema (1+). Absent: cyanosis, clubbing - Routine Back/Spine/Pelvis Exam Back/Spine: Present: full ROM - Routine Neurological Exam Present: alert, oriented X3, CN II-XII intact, motor deficit Legs are weak greater proximally than distally. - Routine Psychiatric Exam Present: normal affect Oncology Results - Labs CBC & Chem 7: 02/01/17 04:47 02/01/17 04:47 Labs: Short CBC 02/01/17 Range/Units 04:47 WBC 9.6 D (4.5-11.0) T/MM3 Hgb 8.7 L D (13.5-17.5) GM/DL Hct 27.2 L (41-53) % Plt Count 105 L (130-400) T/MM3 BMP 02/01/17 04:47 Sodium 138 Potassium 3.1 L Chloride 109 H Carbon Dioxide 21 L BUN 7.0 L Creatinine 0.6 L Glucose 71 L Calcium 8.2 L Liver Function 02/01/17 Range/Units 04:47 Total Bilirubin 0.50 (0.20-1.30) MG/DL AST 20 (17-59) U/L ALT 52 (21-72) U/L Alkaline Phosphatase 82 D (38-126) U/L Albumin 2.3 L (3.5-5.0) G/DL Assessment and Plan (1) Diarrhea Status: Acute Current Visit: Yes (2) Neutropenia Status: Acute Current Visit: Yes (3) Non-small cell carcinoma of lung, stage 4 Status: Acute Current Visit: Yes Assessment and Plan: 1. Metastatic non-small cell lung cancer, adenocarcinoma type, EGFR, ALK, ROS-1 and PD-L1 negative, status post whole brain radiation and concurrent radiation and chemotherapy to the chest disease using weekly Taxol and carboplatin. 2. Interval development of liver metastasis six weeks after the completion of the Taxol, carboplatin and radiation. He was started on second-line chemotherapy using docetaxel. First cycle given on January 24, 2017 followed by Rosanne. He was admitted on 01/30/17 with neutropenia and ANC of 200. This is improved and is 6.5K today. He had fever and diarrhea. Cultures have been negative. His temperature is 99 today. I feel that we can stop antibiotics. 3. Severe chemotherapy-induced neutropenia without fever. ANC up to 6.5K on 02/01/17. 4. Diarrhea with dehydration. Improved. 5. History of venous thromboembolism, on Fragmin. 6. Weakness with Falls at home. This is multifactoral including brain metastasis, deconditioning, Steroids and inadequate nutrition. Recommendation: Increase Caloric intake. Consider Megace. Physical therapy in SNU or with home health. Continue Fragmin. Supportive care. Follow up with Dr. Gallardo next week. - Time Spent With Patient Total time spent is greater than 50% in coordination of care (as documented) at patient's floor/unit and/or counseling patient: 25 - 35 minutes Sepsis Assessment - Evaluation Sepsis screening result: No Definite Risk - Focused Exam Vital Signs Temp Pulse Resp BP Pulse Ox 02/01/17 07:38 99 F 87 18 109/66 92 01/31/17 23:56 98.9 F 82 18 103/65 89 L Respiratory exam: Present: decreased breath sounds, CTA bilaterally Cardiovascular exam: Present: RRR, S1, S2
--- NOTE | 2017-02-01 14:12 | XRay Report ---
Indication: dyspnea PROCEDURE: XR chest 1V: Encounter: Initial Comparison: January 30, 2017 Findings: Right IJ port catheter appears stable in position. Lungs are stable with continued minimal blunting of the right costophrenic angle. Upper lung jarrell are clear apart from the right suprahilar area masses. No pneumothorax. Heart size and mediastinal contours are stable. Pulmonary vascularity appears normal. Impression: Stable trace right pleural effusion and mild right basilar atelectasis. No new infiltrates. .
--- NOTE | 2017-02-01 17:17 | Progress Note ---
Subjective: Mr. Nash was seen early in the afternoon with his at bedside. He reports he still feels "droopy" but better than he did when he came in. Said he simply worn out. He was able to get to the bathroom earlier today with his ' s assistance but this afternoon required assistance of 2 staff members to get to the bathroom and staff report that he is getting progressively weaker. The patient reports he had a bad night and that he was up hourly to go to the bathroom. He denied diarrhea, reports cough is at baseline, denied nausea. He complains of generalized weakness. Nursing reports he is impulsive and tries to get up on his own. Objective Vital signs: Temp Pulse Resp BP Pulse Ox 96.7 F L 94 17 92/63 90 02/01/17 15:23 02/01/17 16:00 02/01/17 15:23 02/01/17 15:23 02/01/17 15:23 I/O +6.5 L since admission Weight up 2 kg from admission Supine 92/63, 72 seated 76/55, 115 standing 102/61, 133 EXAM General-NAD, slightly confused, inconsistent responses to questions HEENT-conjunctiva clear, oropharynx clear-no evidence of thrush today Lungs-respirations are slightly labored with minimal crackles at the left base and crackles approximately half of on the right posteriorly, no wheezing present , fair airflow Cardiac-regular rhythm, S1-S2, tachycardic Abd-abdomen soft, nontender, diminished bowel sounds Ext-+1 bowel sounds plus edema bilateral lower extremities-improved from admission Neuro-moving all extremities symmetrically but weak, EOMI Psych-impulsive, attempt to get up independently in my presence; dull, somewhat confused - Weight: 85 kg Results - Labs CBC & Chem 7: 02/01/17 04:47 02/01/17 04:47 Labs: Segs 63, bands 20, lymphocytes 10, monocytes 7 Liver enzymes/LDH unremarkable; albumin 2.3 - Imaging and Cardiology Chest x-ray Status: image reviewed by me (mild basilar atelectasis, no infiltrate or heart failure; stable right suprahilar mass) Assessment and Plan (1) SIRS (systemic inflammatory response syndrome) Problem details: leukopenia; bandemia; HR 92 Current visit: Yes Status: Acute (2) Diarrhea Current visit: Yes Status: Acute (3) Hypokalemia Current visit: Yes Status: Acute (4) Neutropenia Current visit: Yes Status: Acute (5) DVT (deep venous thrombosis) Problem details: Nonocclusive DVT in right popliteal vein 10/26/16 Current visit: Yes Status: Acute (6) Non-small cell carcinoma of lung, stage 4 Current visit: Yes Status: Acute (7) Weakness Current visit: Yes Status: Acute (8) Falls Current visit: Yes Status: Acute (9) Thrush Current visit: Yes Status: Acute (10) Orthostasis Current visit: Yes Status: Acute Assessment and Plan: Mr. Nash is moderately orthostatic today with significant tachycardia standing. Additionally he is more dyspneic although chest x-ray does not reveal heart failure or infiltrate. Volume is clearly up following intentional hydration due to volume depletion on admission. He has borderline hypoxia. Breathing treatments will be initiated, BNP assessed in the morning, and IV fluids resumed. Reassess orthostatic vital signs in the morning. Prognosis briefly discussed with Dr. Gallardo who is on-call this weekend and will visit with patient and his tomorrow regarding their goals. Neutropenia has subsided, remains afebrile. Blood cultures are negative. Antibiotics discontinued. Prophylactic acyclovir continued; nystatin continued for thrush present on admission. Continue potassium supplementation-oral dose given earlier today and we'll add potassium to IV fluids. Continue PT for strengthening. Thorazine ordered if needed for hiccups. Discussed with Dr. Ford, Dr. Gallardo, and nursing. Discussed CODE STATUS and consideration of DO NOT RESUSCITATE with patient's given metastatic malignancy and poor tolerance of chemotherapy. Sepsis Assessment - Evaluation Sepsis screening result: Sepsis Risk - Focused Exam Vital Signs Temp Pulse Pulse Pulse Pulse Resp BP 02/01/17 16:00 94 02/01/17 15:23 96.7 F L 100 17 92/63 02/01/17 14:54 133 H 02/01/17 14:52 115 H 02/01/17 14:50 96.1 F L 102 H 20 02/01/17 10:30 99.1 F 02/01/17 08:00 84 02/01/17 07:38 99 F 87 18 109/66 BP BP BP Pulse Ox 02/01/17 16:00 02/01/17 15:23 90 02/01/17 14:54 102/61 06/16/17 14:52 76/55 02/01/17 14:50 93/64 91 02/01/17 10:30 02/01/17 08:00 02/01/17 07:38 92 Respiratory exam: Present: decreased breath sounds, CTA bilaterally Cardiovascular exam: Present: RRR, S1, S2 Hospital Course Summary Disclaimer: The visit summary below is not to be considered part of the above Progress Note. Hospital Course: 01/30/17 16:06 Admit to inpatient status under the hospitalist service. Diarrhea, weakness, recent fall. -Check GI panel -Septic workup ordered including lactate, procalcitonin, blood cultures, sputum culture, and urinalysis -Consult PT and OT SIRS - leukopenia, bandemia, and heart rate of 92 -CXR negative for pneumonia -follow results of sepsis workup -consider prophylactic antibiotics given immunocompromised status. Metastatic non-small cell lung cancer with Neutropenia, pancytopenia -Neutropenic precautions -Neulasta injection approximately 1 week ago -Empiric Antibiotic coverage -Consult Dr. Gallardo Hypokalemia and dehydration secondary to GI losses-Start normal saline with potassium at 125 mL per hour. Thrush-start Nystatin QID Tobacco dependence-patient is trying to quit,Nicotine patch PRN DVT, diagnosed October 26 2016-continue Fragmin (dose needs verification) Advanced care directives- is DPOA; Full code 01/31/17 14:52 Mr. Nash is clinically improved today and has had resolution of neutropenia with current ANC of 2.2K. He remains afebrile. Potassium is correcting and diarrhea subsiding by patient report. Blood cultures are negative thus far although less than 24 hour incubation. Continue IV antibiotics overnight-if clinically stable and blood cultures negative will discontinue antibiotics. Continue fluids/potassium supplementation. PT evaluation initiated for strengthening-reported to be unsteady/unsafe returning. Thorazine ordered if needed for hiccups. Discussed with Dr. Ford and nursing. 02/01/17 17:31 Mr. Nash is moderately orthostatic today with significant tachycardia standing. Additionally he is more dyspneic although chest x-ray does not reveal heart failure or infiltrate. Volume is clearly up following intentional hydration due to volume depletion on admission. He has borderline hypoxia. Breathing treatments will be initiated, BNP assessed in the morning, and IV fluids resumed. Reassess orthostatic vital signs in the morning. Prognosis briefly discussed with Dr. Gallardo who is on-call this weekend and will visit with patient and his tomorrow regarding their goals. Neutropenia has subsided, remains afebrile. Blood cultures are negative. Antibiotics discontinued. Prophylactic acyclovir continued; nystatin continued for thrush present on admission. Continue potassium supplementation-oral dose given earlier today and we'll add potassium to IV fluids. Continue PT for strengthening. Thorazine ordered if needed for hiccups. Discussed with Dr. Ford, Dr. Gallardo, and nursing. Discussed CODE STATUS and consideration of DO NOT RESUSCITATE with patient's given metastatic malignancy and poor tolerance of chemotherapy.
[2017-02-02] MEDS: SALINE FLUSH 10ml SYRINGE IVF PRN (03:55)
[2017-02-02] MEDS: NS with KCL 20 mEq 1,000 ML IV SCH (07:31)
--- NOTE | 2017-02-02 09:37 | Progress Note ---
<Janice Diaz - Last Filed: 02/02/17 09:29> Subjective: Navjot is seen this morning in follow up for his non-small cell lung carcinoma and generalized weakness. He arouses easily on exam and denies any complaints including no chest pain, shortness of breath, abdominal pain, nausea, vomiting or dysuria. He states that he feels very weak and denies any dizziness, syncope or focal weakness. He states that his bowels are moving and his appetite is stable. He admits to supplementing his diet with mighty shakes. Prior records and labs were reviewed. CBC was obtained yesterday AM at 4:47 and revealed WBC 9.6, hemoglobin 8.7 and platelets 105. CBC was repeated last night at 18:40 and revealed significant increase and new leukocytosis with WBC at 15.5. Improvement in anemia and thrombocytopenia were also noted with increase in hemoglobin to 10.3 and increase in platelets to 124. Neutropenia resolved. BMP was obtained this AM and was unremarkable with sodium 136, resolution of hypokalemia with potassium at 3.6, BUN 7, SCr 0.6 and blood glucose stable at 89. Vital signs do reveal slightly elevated temperature at 99.8 and respiratory rate at 20. Pulse oximetry is low at 90%. Heart rate while laying down is 88 with blood pressure 118/67. Repeat CXR on 02/01 showed stable trace right plural effusion and mild right basilar atelectasis without evidence of new infiltrate. Anticipating discussion regarding goals of care by heme-onc today. Objective Vital signs: Temp Pulse Resp BP Pulse Ox 98.1 F 68 20 110/74 94 02/02/17 08:39 02/02/17 08:54 02/02/17 08:39 02/02/17 08:54 02/02/17 08:39 Rhythm: Sinus Tachycardia Weight: 85.5 kg - Constitutional Present: no acute distress, thin, cooperative - Routine HEENT Exam Head: Present: normocephalic, atraumatic Eye: Absent: conjunctival icterus, scleral injection ENT: Present: mucous membranes moist - Routine Respiratory Exam Present: rales (bilaterally), crackles. Absent: accessory muscle use, respiratory distress, rhonchi, stridor, wheezes - Routine Cardiovascular Exam Present: RRR, S1, S2 - Routine Abdominal Exam Present: soft, normoactive bowel sounds, non distended, non tender. Absent: rebound, guarding - Routine Extremities Exam Present: edema (trace-1+ bilateral lower extremity), non tender, pulses intact, normal capillary refill. Absent: calf tenderness - Routine Back/Spine/Pelvis Exam Back/Spine: Absent: CVA tenderness, vertebral tenderness - Routine Musculoskeletal Exam Musculoskeletal: other (generalized weakness) - Routine Skin Exam Present: dry, warm. Absent: cyanosis - Routine Neurological Exam Present: alert, oriented X3, moving all extremities, hearing grossly intact, normal speech - Routine Lymphatic Exam Lymphatic: Absent: lymphedema - Routine Psychiatric Exam Present: cooperative Results - Labs CBC & Chem 7: 02/01/17 18:40 02/02/17 03:52 Labs: New leukocytosis with WBC 15.5. Improved anemia with hemoglobin at 10.3. Improved thrombocytopenia with platelets 124. Previous hypokalemia resolved with potassium improved to 3.6. BMP unremarkable. - Imaging and Cardiology Chest x-ray Status: image reviewed by me Additional comments: CXR 02/01/17: stable trace right pleural effusion and mild right basilar atelectasis without evidence of new infiltrate. Assessment and Plan (1) SIRS (systemic inflammatory response syndrome) Problem details: leukopenia; bandemia; HR 92 Current visit: Yes Status: Acute (2) Diarrhea Current visit: Yes Status: Acute (3) Hypokalemia Current visit: Yes Status: Resolved (4) Neutropenia Current visit: Yes Status: Resolved (5) DVT (deep venous thrombosis) Problem details: Nonocclusive DVT in right popliteal vein 10/26/16 Current visit: Yes Status: Acute (6) Non-small cell carcinoma of lung, stage 4 Current visit: Yes Status: Chronic (7) Weakness Current visit: Yes Status: Acute (8) Falls Current visit: Yes Status: Chronic (9) Thrush Current visit: Yes Status: Acute (10) Orthostasis Current visit: Yes Status: Acute DVT Prophylaxis: SCD's, other (Fragmin) GI Prophylaxis: Rantidine Assessment and Plan: Mr. Nash is seen this morning immediately upon awakening. .SIRS: * New leukocytosis noted with repeat CBC on 02/01 at 1840 with WBC at 15.5. Neutropenia resolved. No CBC today to compare. Patient continues to have occasional tachycardia, but appears improved following fluid resuscitation. Low -grade temperature noted this AM at 99.8. * Will repeat CBC now. * Prophylactic antibiotics including Cefepime and Vancomycin discontinued on . * Blood cultures remain negative after 2 days. * Volume continues to trend up from admission following intentional hydration due to volume depletion on admission. Continue to monitor daily weight and signs of fluid overload. BMP obtained and was only 694. Wet cough noted on exam which he reports is occasionally productive and unchanged since admission. Crackles noted bilaterally on lung exam. Trace to 1+ edema noted to bilateral lower extremities. Will discontinue IV fluids at this time as dehydration appears corrected and risk of fluid overload as well as adequate oral intake. Consider low dose lasix for additional fluid motivation. Will discuss with Dr. Lorenzana. * Continue to encourage oral intake. * Continue prophylactic acyclovir due to immunocompromised state. * Thorazine ordered if needed for hiccups. .Generalized weakness: * Continue to encourage participation in therapy for strengthening and improved mobility as generalized weakness is Mr. Mejia's biggest complaint and concern. .Hypokalemia, resolved on 02/02: * Oral and IV potassium given and hypokalemia resolved. Continue to monitor trends. Will recheck BMP in AM to monitor electrolytes and renal function. .Non-Small Cell Lung Carcinoma, chronic: * Continues to have borderline hypoxia with pulse ox 90% during sleep and improved to 94% once fully awake. Continue breathing treatments. * Will initiate incentive spirometry. * Expect treatment plan goals to be discussed today with patient by Dr. Gallardo. * Repeat CXR on 02/01 showed stable right pleural effusion and mild right basilar atelectasis without evidence of new infiltrate. .DVT, chronic: * Continue Fragmin for anticoagulation. .Thrush: * Present on admission; continue nystatin. .Orthostasis: * His orthostatic vital signs are improved, but continues to have mild tachycardia with standing with a heart rate at 101. Blood pressures are stable and he remains asymptomatic. Continue to monitor orthostatic pressures. Discussed CODE STATUS and consideration of DO NOT RESUSCITATE with patient's given metastatic malignancy and poor tolerance of chemotherapy. Sepsis Assessment - Evaluation Sepsis screening result: No Definite Risk Possible source: pulmonary Confirmed Suspected Infection: No SIRS Criteria: pulse > or equal to 90 beats/minute, WBC > or equal to 12,000, RR > or equal to 20 Severe Sepsis: platelet count < 100,000 - Focused Exam Vital Signs Temp Pulse Pulse Pulse Pulse Resp BP 02/02/17 08:54 68 80 101 H 02/02/17 08:43 101 H 111/69 02/02/17 08:41 80 105/68 02/02/17 08:40 70 110/74 02/02/17 08:39 98.1 F 68 20 110/74 02/02/17 00:00 99.8 F 88 88 110 H 111 H 20 118/67 BP BP BP Pulse Ox 02/02/17 08:54 110/74 105/68 111/69 02/02/17 08:43 02/02/17 08:41 02/02/17 08:40 02/02/17 08:39 94 02/02/17 00:00 118/67 124/71 117/65 90 Respiratory exam: Present: decreased breath sounds, rales, crackles. Absent: accessory muscle use, respiratory distress Cardiovascular exam: Present: RRR, S1, S2 Peripheral pulse strength: Normal Hospital Course Summary Disclaimer: The visit summary below is not to be considered part of the above Progress Note. Hospital Course: 01/30/17 16:06 Admit to inpatient status under the hospitalist service. Diarrhea, weakness, recent fall. -Check GI panel -Septic workup ordered including lactate, procalcitonin, blood cultures, sputum culture, and urinalysis -Consult PT and OT SIRS - leukopenia, bandemia, and heart rate of 92 -CXR negative for pneumonia -follow results of sepsis workup -consider prophylactic antibiotics given immunocompromised status. Metastatic non-small cell lung cancer with Neutropenia, pancytopenia -Neutropenic precautions -Neulasta injection approximately 1 week ago -Empiric Antibiotic coverage -Consult Dr. Gallardo Hypokalemia and dehydration secondary to GI losses-Start normal saline with potassium at 125 mL per hour. Thrush-start Nystatin QID Tobacco dependence-patient is trying to quit,Nicotine patch PRN DVT, diagnosed October 26 2016-continue Fragmin (dose needs verification) Advanced care directives- is DPOA; Full code 01/31/17 14:52 Mr. Nash is clinically improved today and has had resolution of neutropenia with current ANC of 2.2K. He remains afebrile. Potassium is correcting and diarrhea subsiding by patient report. Blood cultures are negative thus far although less than 24 hour incubation. Continue IV antibiotics overnight-if clinically stable and blood cultures negative will discontinue antibiotics. Continue fluids/potassium supplementation. PT evaluation initiated for strengthening-reported to be unsteady/unsafe returning. Thorazine ordered if needed for hiccups. Discussed with Dr. Ford and nursing. 02/01/17 17:31 Mr. Nash is moderately orthostatic today with significant tachycardia standing. Additionally he is more dyspneic although chest x-ray does not reveal heart failure or infiltrate. Volume is clearly up following intentional hydration due to volume depletion on admission. He has borderline hypoxia. Breathing treatments will be initiated, BNP assessed in the morning, and IV fluids resumed. Reassess orthostatic vital signs in the morning. Prognosis briefly discussed with Dr. Gallardo who is on-call this weekend and will visit with patient and his tomorrow regarding their goals. Neutropenia has subsided, remains afebrile. Blood cultures are negative. Antibiotics discontinued. Prophylactic acyclovir continued; nystatin continued for thrush present on admission. Continue potassium supplementation-oral dose given earlier today and we'll add potassium to IV fluids. Continue PT for strengthening. Thorazine ordered if needed for hiccups. Discussed with Dr. Ford, Dr. Gallardo, and nursing. Discussed CODE STATUS and consideration of DO NOT RESUSCITATE with patient's given metastatic malignancy and poor tolerance of chemotherapy. 02/02/17 10:13 Mr. Nash is seen this morning immediately upon awakening. .SIRS: * New leukocytosis noted with repeat CBC on 02/01 at 1840 with WBC at 15.5. Neutropenia resolved. No CBC today to compare. Patient continues to have occasional tachycardia, but appears improved following fluid resuscitation. Low -grade temperature noted this AM at 99.8. * Will repeat CBC now. * Prophylactic antibiotics including Cefepime and Vancomycin discontinued on . * Blood cultures remain negative after 2 days. * Volume continues to trend up from admission following intentional hydration due to volume depletion on admission. Continue to monitor daily weight and signs of fluid overload. BMP obtained and was only 694. Wet cough noted on exam which he reports is occasionally productive and unchanged since admission. Crackles noted bilaterally on lung exam. Trace to 1+ edema noted to bilateral lower extremities. Will discontinue IV fluids at this time as dehydration appears corrected and risk of fluid overload as well as adequate oral intake. Consider low dose lasix for additional fluid motivation. Will discuss with Dr. Safdar. * Continue to encourage oral intake. * Continue prophylactic acyclovir due to immunocompromised state. * Thorazine ordered if needed for hiccups. .Generalized weakness: * Continue to encourage participation in therapy for strengthening and improved mobility as generalized weakness is Mr. Mejia's biggest complaint and concern. .Hypokalemia, resolved on 02/02: * Oral and IV potassium given and hypokalemia resolved. Continue to monitor trends. Will recheck BMP in AM to monitor electrolytes and renal function. .Non-Small Cell Lung Carcinoma, chronic: * Continues to have borderline hypoxia with pulse ox 90% during sleep and improved to 94% once fully awake. Continue breathing treatments. * Will initiate incentive spirometry. * Expect treatment plan goals to be discussed today with patient by Dr. Gallardo. * Repeat CXR on 02/01 showed stable right pleural effusion and mild right basilar atelectasis without evidence of new infiltrate. .DVT, chronic: * Continue Fragmin for anticoagulation. .Thrush: * Present on admission; continue nystatin. .Orthostasis: * His orthostatic vital signs are improved, but continues to have mild tachycardia with standing with a heart rate at 101. Blood pressures are stable and he remains asymptomatic. Continue to monitor orthostatic pressures. Discussed CODE STATUS and consideration of DO NOT RESUSCITATE with patient's given metastatic malignancy and poor tolerance of chemotherapy. <Vani Arrieta - Last Filed: 02/02/17 15:14> Subjective: S: Pt reports feeling much better today, denies any n/v/d, f/c, cp or sob. Pt would like to talk to his oncologist. O: Gen: alert and oriented, no acute distress Resp: CTAB, decreased breath sounds in bases Cards: RRR, no murmurs Skin: dry, intact A/P: -Pt's blood counts have improved and are likely rebounding from the neulasta, will cont. to monitor -Prognosis does not look good, plan for goals of care talk with oncologist Objective Vital signs: Temp Pulse Resp BP Pulse Ox 98.1 F 68 20 110/74 94 02/02/17 08:39 02/02/17 08:54 02/02/17 08:39 02/02/17 08:54 02/02/17 08:39 Results - Labs CBC & Chem 7: 02/02/17 12:19 02/02/17 03:52 Assessment and Plan (1) SIRS (systemic inflammatory response syndrome) Problem details: leukopenia; bandemia; HR 92 Current visit: Yes Status: Acute (2) Diarrhea Current visit: Yes Status: Acute (3) Hypokalemia Current visit: Yes Status: Resolved (4) Neutropenia Current visit: Yes Status: Resolved (5) DVT (deep venous thrombosis) Problem details: Nonocclusive DVT in right popliteal vein 10/26/16 Current visit: Yes Status: Acute (6) Non-small cell carcinoma of lung, stage 4 Current visit: Yes Status: Chronic (7) Weakness Current visit: Yes Status: Acute (8) Falls Current visit: Yes Status: Chronic (9) Thrush Current visit: Yes Status: Acute (10) Orthostasis Current visit: Yes Status: Acute Sepsis Assessment - Focused Exam Vital Signs Temp Pulse Pulse Pulse Pulse Resp BP 02/02/17 08:54 68 80 101 H 02/02/17 08:43 101 H 111/69 02/02/17 08:41 80 105/68 02/02/17 08:40 70 110/74 02/02/17 08:39 98.1 F 68 20 110/74 BP BP BP Pulse Ox 02/02/17 08:54 110/74 105/68 111/69 02/02/17 08:43 02/02/17 08:41 02/02/17 08:40 02/02/17 08:39 94 Hospital Course Summary Disclaimer: The visit summary below is not to be considered part of the above Progress Note.
[2017-02-02] MEDS: NYSTATIN 500,000 units/5 ml ORAL LIQUID PO SCH ×3 (09:55→17:15)
[2017-02-02] MEDS: DEXAMETHASONE 1 MG TABLET PO SCH (09:55)
[2017-02-02] MEDS: ACYCLOVIR 200 MG CAPSULE PO SCH (09:56)
[2017-02-02] MEDS: RANITIDINE 150 MG TABLET PO SCH (09:56)
[2017-02-02] MEDS: LEVETIRACETAM 250 MG TABLET PO SCH (09:56)
[2017-02-02] MEDS: [UNRECOGNIZED DRUG - OTHER] SQ SCH (09:57)
[2017-02-02] MEDS: NICOTINE 21 MG PATCH TD PRN (09:59)
[2017-02-02] MEDS: NICOTINE PATCH REMOVAL TD SCH (10:00)
--- NOTE | 2017-02-02 16:20 | Progress Note ---
Oncology Subjective Lying in the bed, Feeling a lot better since yesterday. Was able to go to the bathroom with help. Diarrhea stopped. Family at the bedside, son and [id number]. Exam Vital signs: Temp Pulse Resp BP Pulse Ox 97.9 F 90 26 H 118/69 94 02/02/17 15:16 02/02/17 15:16 02/02/17 15:16 02/02/17 15:16 02/02/17 08:39 - Constitutional no acute distress, cooperative - Routine Respiratory Exam Absent: rhonchi, wheezes - Routine Cardiovascular Exam Present: RRR, no murmur. Absent: murmur - Routine Abdominal Exam Present: soft, non distended, non tender Comments: Abdomen benign - Routine Skin Exam Present: intact. Absent: erythema - Routine Neurological Exam Present: alert, oriented X3, abnormal gait Abnormal gait, steady. Oncology Results - Labs CBC & Chem 7: 02/02/17 12:19 02/02/17 03:52 Labs: Short CBC 02/01/17 02/02/17 Range/Units 18:40 12:19 WBC 15.5 H D 14.1 H (4.5-11.0) T/MM3 Hgb 10.3 L D 9.9 L (13.5-17.5) GM/DL Hct 31.2 L D 30.3 L (41-53) % Plt Count 124 L 126 L (130-400) T/MM3 [facility] 02/02/17 03:52 Sodium 136 Potassium 3.6 Chloride 106 Carbon Dioxide 23 BUN 7.0 L Creatinine 0.6 L Glucose 89 Calcium 8.5 Assessment and Plan (1) Diarrhea Start date: 02/02/17 Status: Acute Assessment and plan: 1. Recurrent metastatic non-small cell lung cancer with several liver metastasis status post one cycle of docetaxel a week ago. 2. Unsteady gait due to brain metastasis status post whole brain radiation. 3. Diarrhea, resolved. 4. Chemotherapy-induced neutropenia, resolved. I spent more than 30 minutes with the patient and his family discussing with them prognosis and treatment options. I explained to them the treatment is purely palliative and the patient may buy time before disease progress again. We discussed the quality of life if he continued on treatment. The patient kept saying I want to live for my family, I do not want to . He is not agreeable for supportive care/hospice at this juncture. We agreed that to go home, think about his options and come back next week to further discuss the option of supportive care and risk benefit of continuing chemotherapy. The patient felt better with this plan at least the option of fighting is still on the table. The patient could be discharged below see him next week for follow-up. Current Visit: Yes (2) Neutropenia Status: Resolved Current Visit: Yes (3) Non-small cell carcinoma of lung, stage 4 Status: Chronic Current Visit: Yes - Time Spent With Patient Total time spent is greater than 50% in coordination of care (as documented) at patient's floor/unit and/or counseling patient: 25 - 35 minutes Sepsis Assessment - Evaluation Sepsis screening result: No Definite Risk SIRS Criteria: pulse > or equal to 90 beats/minute, WBC > or equal to 12,000, RR > or equal to 20 Severe Sepsis: platelet count < 100,000 - Focused Exam Vital Signs Temp Pulse Pulse Pulse Pulse Resp BP 02/02/17 15:16 97.9 F 90 26 H 118/69 02/02/17 08:54 68 80 101 H 02/02/17 08:43 101 H 111/69 02/02/17 08:41 80 105/68 02/02/17 08:40 70 110/74 02/02/17 08:39 98.1 F 68 20 110/74 BP BP BP Pulse Ox 02/02/17 15:16 02/02/17 08:54 110/74 105/68 111/69 02/02/17 08:43 02/02/17 08:41 02/02/17 08:40 02/02/17 08:39 94 Respiratory exam: Present: decreased breath sounds, rales, crackles. Absent: accessory muscle use, respiratory distress Cardiovascular exam: Present: RRR, S1, S2 Peripheral pulse strength: Normal
--- NOTE | 2017-02-02 17:07 | Discharge Summary ---
Discharge Information Date of admission: 01/30/17 13:19 Anticipated date of discharge: 02/02/17 Attending Physician: Irma Gallo MD Primary care physician: Abe Sousa II, MD Consults: 01/30/17 14:51 Physician Consult [CONS] Routine Consulting Provider: Manuel Gallardo Reason For Exam: metastatic cancer Ordering Provider has Notified Partner Integration Planner: Yue 01/30/17 18:00 Pharmacy Consult [CONS] Routine Pharmacy Consult: Vancomycin Comment: neutropenia, Port-A-Cath placed 3 days ago - Discharge Diagnosis (1) SIRS (systemic inflammatory response syndrome) Problem Details: leukopenia; bandemia; HR 92 Status: Acute (2) Diarrhea Status: Resolved (3) Hypokalemia Status: Resolved (4) Neutropenia Status: Resolved (5) DVT (deep venous thrombosis) Problem Details: Nonocclusive DVT in right popliteal vein 10/26/16 Status: Chronic (6) Non-small cell carcinoma of lung, stage 4 Status: Chronic (7) Weakness Status: Acute (8) Falls Status: Chronic (9) Thrush Status: Acute (10) Orthostasis Status: Acute - Laboratory Labs: 02/02/17 12:19 02/02/17 03:52 - Microbiology Microbiology 01/30/17 15:23 Peripheral/Iv Start Blood Culture - Preliminary No Growth After 3 Days 01/30/17 15:19 Cath/Port/Line/Picc Blood Culture - Preliminary No Growth After 3 Days 01/30/17 10:13 Sputum, Expectorated Gram Stain - Final 01/30/17 10:13 Sputum, Expectorated Sputum Culture - Preliminary Culture Initiated - Results Pending 01/30/17 21:35 Sputum, Expectorated Gram Stain - Final 01/30/17 21:35 Sputum, Expectorated Sputum Culture - Final History of Present Illness HPI: Navjot Nash is a 67 y/o male with a hx of metastatic non-small cell lung cancer. He was recently diagnosed with metastatic disease to the liver and chemo was restarted (per Dr. Gallardo). He presented to the office on 01/30/17 for routine follow up, and was extremely weak. He was unable to walk in like usual and needed a wheelchair. He has had diarrhea for the last couple of days. Last Neulasta was approx 1 week ago. Labs were done - he was pancytopeic with WBC of 0.7, hgb 11.3, platelets 101. CMP showed hypokalemia (K 3.2), elevated ALT. CXR was reported as negative. He was hemodynamically stable and afebrile. Dr. Gallardo contacted the hospitalist service and the patient was placed into inpatient status for further evaluation and treatment of his neutropenic state, suspected infection in this immunocompromised host, and IV hydration. LOS is expected to exceed 2 overnights. The patient was seen in his room on the medical unit. He was in no acute distress, but appeared weak. His body was either flushed or very tanned. He was vague on his history and wasn't able to verify home medications. He reported that his diarrhea started 1-2 days ago. He's had several episodes of non-bloody , non-watery diarrhea, but wasn't able to quantify. He states he's been extremely weak, and fell causing a skin tear to his right forearm. He denies striking his head; denies syncope or dizziness or lightheadedness. He admits to having a poor appetite with weight loss, but this is not new. He denies abdominal pain, nausea, or vomiting. He initially denied a cough, but then started coughing, and stated that was new. No SOA, fever, chills, sweats, or sinus drainage. He denies any headaches, joint pain, or myalgias. He has had easy bruising/bleeding since he has been on Fragmin for DVT (dx in October 2016). No chest pain or palpitations. He denies visual changes or paresthesias. Hospital Course Hospital course: Brief Hospital Summary was admitted d/t neutropenia and generalized weakness d/t his radiation/chemo tx of his metastatic non-small cell lung cancer. Pt was placed on prophylactic abx and his counts improved in a couple of days and the abx were stopped. All infectious work up was negative. Pt was dehydrated and responded well to IV fluids. Pt was not interested in placement for his weakness and noted he had good family support and wanted to go home. Pt and family had long discussion with where he was told of the poor prognosis and little to no benefit of continued tx. Pt noted that he wasn't ready for supportive/hospice care just yet. He was noted to go home think further about his goals of care and then f/u up 's office. Pt was medically stable and really wanted to go home so he was discharged home. Pt had sats in low 90s at rest and dropped to 87 with exertion. Worked with case management to set up O2 for home with exertion. Detailed Hospital Summary 01/30/17 16:06 Admit to inpatient status under the hospitalist service. Diarrhea, weakness, recent fall. -Check GI panel -Septic workup ordered including lactate, procalcitonin, blood cultures, sputum culture, and urinalysis -Consult PT and OT SIRS - leukopenia, bandemia, and heart rate of 92 -CXR negative for pneumonia -follow results of sepsis workup -consider prophylactic antibiotics given immunocompromised status. Metastatic non-small cell lung cancer with Neutropenia, pancytopenia -Neutropenic precautions -Neulasta injection approximately 1 week ago -Empiric Antibiotic coverage -Consult Dr. Gallardo Hypokalemia and dehydration secondary to GI losses-Start normal saline with potassium at 125 mL per hour. Thrush-start Nystatin QID Tobacco dependence-patient is trying to quit,Nicotine patch PRN DVT, diagnosed October 26 2016-continue Fragmin (dose needs verification) Advanced care directives- is DPOA; Full code 01/31/17 14:52 Mr. Nash is clinically improved today and has had resolution of neutropenia with current ANC of 2.2K. He remains afebrile. Potassium is correcting and diarrhea subsiding by patient report. Blood cultures are negative thus far although less than 24 hour incubation. Continue IV antibiotics overnight-if clinically stable and blood cultures negative will discontinue antibiotics. Continue fluids/potassium supplementation. PT evaluation initiated for strengthening-reported to be unsteady/unsafe returning. Thorazine ordered if needed for hiccups. Discussed with Dr. Ford and nursing. 02/01/17 17:31 Mr. Nash is moderately orthostatic today with significant tachycardia standing. Additionally he is more dyspneic although chest x-ray does not reveal heart failure or infiltrate. Volume is clearly up following intentional hydration due to volume depletion on admission. He has borderline hypoxia. Breathing treatments will be initiated, BNP assessed in the morning, and IV fluids resumed. Reassess orthostatic vital signs in the morning. Prognosis briefly discussed with Dr. Gallardo who is on-call this weekend and will visit with patient and his tomorrow regarding their goals. Neutropenia has subsided, remains afebrile. Blood cultures are negative. Antibiotics discontinued. Prophylactic acyclovir continued; nystatin continued for thrush present on admission. Continue potassium supplementation-oral dose given earlier today and we'll add potassium to IV fluids. Continue PT for strengthening. Thorazine ordered if needed for hiccups. Discussed with Dr. Ford, Dr. Gallardo, and nursing. Discussed CODE STATUS and consideration of DO NOT RESUSCITATE with patient's given metastatic malignancy and poor tolerance of chemotherapy. 02/02/17 10:13 Mr. Nash is seen this morning immediately upon awakening. .Neutropenia * Resolved .Generalized weakness: * Continue to encourage participation in therapy for strengthening and improved mobility as generalized weakness is Mr. Mejia's biggest complaint and concern. .Hypokalemia, resolved on 02/02: * Oral and IV potassium given and hypokalemia resolved. Continue to monitor trends. Will recheck BMP in AM to monitor electrolytes and renal function. .Non-Small Cell Lung Carcinoma, chronic: * Continues to have borderline hypoxia with pulse ox 90% during sleep and improved to 94% once fully awake. Continue breathing treatments. * Will initiate incentive spirometry. * Expect treatment plan goals to be discussed today with patient by Dr. Gallardo. * Repeat CXR on 02/01 showed stable right pleural effusion and mild right basilar atelectasis without evidence of new infiltrate. .DVT, chronic: * Continue Fragmin for anticoagulation. .Thrush: * Present on admission; continue nystatin. .Orthostasis: * His orthostatic vital signs are improved, but continues to have mild tachycardia with standing with a heart rate at 101. Blood pressures are stable and he remains asymptomatic. Continue to monitor orthostatic pressures. Discussed CODE STATUS and consideration of DO NOT RESUSCITATE with patient's given metastatic malignancy and poor tolerance of chemotherapy. Discharge Plan - Med Rec/Dispo Truven Instructions: Neutropenic Precautions (GEN) Prescriptions: New Acyclovir [Zovirax] 400 mg PO BID cap Continue Dalteparin Sodium,Porcine [Fragmin] 9,500 unit SQ DAILY #30 Sennosides/Docusate Sodium [Sm Senna-S Tablet] 2 tab PO BID PRN PRN Reason: Constipation /Stool Softening Levetiracetam [Keppra] 3 tab PO BID raNITIdine HCl [Ranitidine HCl] 150 mg PO DAILY #0 tab Polyethylene Glycol 3350 [Healthylax] 34 g PO DAILY 30 Days Dexamethasone 1 tab PO AM - Disposition 01 Discharged Home, Self-Care
--- NOTE | 2017-02-04 15:24 | Right on Track Program ---
Right on Track Program Date of Discharge: 02/02/17 Home Medications: Home Medications Medication Instructions Recorded Confirmed raNITIdine HCl [Ranitidine HCl] 150 mg PO DAILY #0 tab 10/26/16 01/30/17 Sennosides/Docusate Sodium [Sm 2 tab PO BID PRN 01/23/17 01/30/17 Senna-S Tablet] Dexamethasone 1 tab PO AM 01/30/17 01/30/17 Levetiracetam [Keppra] 3 tab PO BID 01/30/17 01/30/17 Previous Rx's Medication Instructions Recorded Dalteparin Sodium,Porcine [Fragmin] 9,500 unit SQ DAILY #30 10/29/16 Polyethylene Glycol 3350 34 g PO DAILY 30 Days 10/29/16 [Healthylax] Acyclovir [Zovirax] 400 mg PO BID cap 02/02/17 - Right on Track Program PHONE CALL Date: 02/04/17 Right on Track Program: 24 Hour Follow-Up Discharge Summary Received: Yes Care Plan Received: Yes Follow Up: Follow Up Appointment Scheduled (Dr. Sousa - 02/04/17) Education: Education Provided To Caregiver Community Paramedicine Fall Intervention: No Referral: Case Management, Other ([facility]) Comments: I called Navjot on 02/04/17. He was discharged from the hospital after a 3-day stay for neutropenia and weakness. I spoke with his , Josefina, who reported that they family discussed goals of care this weekend, and have decided to go with [facility]ice with [facility]. They also saw Dr. Sousa today, who agreed with hospice support. I reviewed recommendations in oncology's progress notes, including that further treatment would be palliative in nature, and might delay disease progression. However, as Josefina mentioned, he cannot tolerate the side effects of chemo, and they at this time are more interested in quality of life versus quantity. I asked them to follow up with Dr. Gallardo for more information on the palliative options (I described palliative as not curative, but rather, to delay progression and help alleviate symptoms), but Josefina indicated that they were satisfied with the decision to go with hospice. I gave her my contact information and encouraged her to call if she had any further questions or wished to discuss goals of care/palliative care further. Since they are signing up with hospice, they will not continue receiving transitional services, unless they decide to wait on hospice. Discussed With Patient and Caregiver: Yes - Problems (1) Non-small cell carcinoma of lung, stage 4 Code(s): C34.90 - Malignant neoplasm of unspecified part of unspecified bronchus or lung Status: Chronic (2) Neutropenia Code(s): D70.9 - Neutropenia, unspecified Status: Resolved (3) Diarrhea Code(s): R19.7 - Diarrhea, unspecified Status: Resolved (4) Hypokalemia Code(s): E87.6 - Hypokalemia Status: Resolved (5) Weakness Code(s): R53.1 - Weakness Status: Acute (6) DVT (deep venous thrombosis) Code(s): I82.409 - Acute embolism and thrombosis of unspecified deep veins of unspecified lower extremity Status: Chronic
== END 2017-02-02 19:28 | disposition home health service (06) | DRG 872 ==
LOC: MED 13:19
PROVIDERS: ADMIT Internal Medicine; ATTEND Internal Medicine